=== PATIENT | female | born 1965 | race American Indian/Alaskan Native ===

== ENCOUNTER 2021-01-01 22:59 | Inpatient (IN) | payer MEDICARE ==
--- NOTE | 2021-01-01 23:08 | Emergency Department Report ---
ED General Adult HPI - General Stated complaint: AMS Time Seen by Provider: 01/01/21 23:03 - History of Present Illness Initial comments: Patient presents by ambulance secondary to altered mental status. History is obtained from them. Patient is confused and cannot provide any cogent history. According to EMS, the patient has been confused for 4 days. Her family was concerned tonight and called EMS. They state that she just was not making a lot of sense. According to family and EMS, the patient had not been sick otherwise. EMS notes that the patient was tachycardic during transport. She had a low- grade fever. She smelled of urine. She was confused. They were unaware of any potential Covid exposure. - Related Data Home Medications Medication Instructions Recorded Confirmed Last Taken Aspirin [Aspirin BABY CHEW TAB] 81 mg PO QDAY 01/02/21 01/02/21 Unknown carvediloL [Coreg] 12.5 mg PO BID 01/02/21 01/02/21 Unknown donepeziL [Aricept] 10 mg PO QHS 01/02/21 01/02/21 Unknown hydrALAZINE [Apresoline TAB] 100 mg PO Q8HR 01/02/21 01/02/21 Unknown Allergies Allergy/AdvReac Type Severity Reaction Status Date / Time Sulfa (Sulfonamide Allergy Unknown Verified 01/02/21 00:42 Antibiotics) ED Review of Systems ROS: Stated complaint: AMS Other details as noted in HPI Comment: Unobtainable due to pts medical conditions (Confusion) ED Past Medical Hx - Past Medical History Hx CVA: Yes (Per EMS with no residual deficit) Additional medical history: Cannot be obtained secondary to confusion - Surgical History Additional Surgical History: Cannot be obtained secondary to confusion - Family History Family history: other (Cannot be obtained secondary to confusion) - Medications Home Medications: Home Medications Medication Instructions Recorded Confirmed Last Taken Type Aspirin [Aspirin BABY CHEW TAB] 81 mg PO QDAY 01/02/21 01/02/21 Unknown History carvediloL [Coreg] 12.5 mg PO BID 01/02/21 01/02/21 Unknown History donepeziL [Aricept] 10 mg PO QHS 01/02/21 01/02/21 Unknown History hydrALAZINE [Apresoline TAB] 100 mg PO Q8HR 01/02/21 01/02/21 Unknown History ED Physical Exam - General Limitations: Altered Mental Status, Other (Pulse ox was noted. Patient is hypoxic.) General appearance: alert, in distress (Mild) - Head Head exam: Present: atraumatic, other (There is flattening of the right nasolabial fold. Patient has some right-sided periorbital edema) - Eye Eye exam: Present: PERRL, EOMI, periorbital swelling (Right). Absent: scleral icterus - ENT ENT exam: Present: mucous membranes dry, normal external ear exam - Neck Neck exam: Present: normal inspection. Absent: meningismus - Respiratory Respiratory exam: Present: respiratory distress (Mild), rales (Bilateral) - Cardiovascular Cardiovascular Exam: Present: tachycardia, normal heart sounds - GI/Abdominal GI/Abdominal exam: Present: soft. Absent: distended, tenderness - Extremities Exam Extremities exam: Present: normal capillary refill, pedal edema (Right greater than left), other (There is bruising to the lateral aspect of the right hip) - Back Exam Back exam: Present: normal inspection - Neurological Exam Neurological exam: Present: alert, altered, other (Patient seems to have some flattening of the right nasolabial fold. There seems to be weakness involving the right arm. Patient will not cooperate with exam.) - Psychiatric Psychiatric exam: Present: flat affect - Skin Skin exam: Present: warm, dry ED Course Vital Signs 01/01/21 01/02/21 01/02/21 23:15 00:15 00:30 Temperature 98.6 F Pulse Rate 120 H 110 H 107 H Respiratory 20 25 H 20 Rate Blood Pressure 176/124 198/117 178/121 O2 Sat by Pulse 93 95 95 Oximetry 01/02/21 01/02/21 01/02/21 00:46 01:08 01:16 Temperature Pulse Rate 105 H 105 H 102 H Respiratory 15 24 19 Rate Blood Pressure 178/121 192/111 192/111 O2 Sat by Pulse 94 93 96 Oximetry - Reevaluation(s) Reevaluation #1: 01/01/21 23:07 EMS was met. IV and labs were ordered. Reevaluation #2: 01/02/21 00:32 CBC was noted. Other labs are still pending. Reevaluation #3: 01/02/21 00:48 UA was noted. Rocephin was ordered. Reevaluation #4: 01/02/21 01:26 CT was discussed with the radiologist. ED Medical Decision Making - Lab Data Result diagrams: 01/01/21 23:33 01/01/21 23:33 - EKG Data EKG shows normal: sinus rhythm, intervals, QRS complexes Rate: tachycardia - EKG Data Interpretation: LVH 01/02/21 00:32 EKG shows a sinus tachycardia 116. There is LVH noted. QRS is normal at 94. QT corrected is normal at 441. Patient has no ST elevation to suggest STEMI. There is no ST depression suggestive of ischemia. - Medical Decision Making Patient presents with altered mental status as well as tachycardia and low-grade fevers. She clinically is dehydrated. She will be admitted for ongoing hydration and treatment. Etiology for the confusion does not appear to be related to any acute stroke or bleed. There is no visible sign of head trauma. I do not have concern for subdural or epidural hematomas given her current presentation. I suspect the acute kidney injury is new along with the urinary tract infection. I believe that she is encephalopathic from that. She does not have lactic acidosis. Patient does not have hypotension. There is no evidence of septic shock. Verbal report for CT was for a subacute stroke. Rectal aspirin has been given. As her symptoms began 4 days ago, she would be outside of any kind of window for intervention. Critical Care Time: No Critical care attestation.: If time is entered above; I have spent that time in minutes in the direct care of this critically ill patient, excluding procedure time. ED Disposition Clinical Impression: Tachycardia, Hypoxia, Encephalopathy, FAVIOLA (acute kidney injury) UTI (urinary tract infection) Qualifiers: Urinary tract infection type: site unspecified Hematuria presence: without hematuria Qualified Code(s): N39.0 - Urinary tract infection, site not specified CVA (cerebral vascular accident) Qualifiers: CVA mechanism: unspecified Qualified Code(s): I63.9 - Cerebral infarction, unspecified Disposition: 09 ADMITTED INPATIENT Is pt being admited?: Yes Condition: Stable Referrals: PRIMARY CARE, [Primary Care Provider] - 3-5 Days
[2021-01-01 23:53] LABS: Basophils % (Auto) 0.2 % (0.0-1.8); Hematocrit 41.8 % (30.3-42.9); Hemoglobin 13.9 gm/dl (10.1-14.3); Lymphocytes # (Auto) 0.7 K/mm3 (1.2-5.4); Mean Corpuscular HGB Conc 33 % (30-34); Mean Corpuscular Volume 86 fl (79-97); Monocytes # (Auto) 0.5 K/mm3 (0.0-0.8); Monocytes % (Auto) 8.7 % (0.0-7.3); Platelet Count 201 K/mm3 (140-440); Red Blood Count 4.86 M/mm3 (3.65-5.03); Red Cell Distribution Width 18.6 % (13.2-15.2)
[2021-01-02 00:18] LABS: Albumin 3.4 g/dL (3.9-5); Calcium 8.8 mg/dL (8.4-10.2)
[2021-01-02 00:35] LABS: Bilirubin,Urine NEG (Negative); Blood,Urine LG (Negative); Color,Urine Amber (Yellow); Mucus,Urine FEW /HPF
[2021-01-02] MEDS ORDERED: ASPIRIN 300 MG RECT SUPP PR ONE (01:19)
[2021-01-02] MEDS: cefTRIAXone/NS 1 GM/50 ML 1 GM/50 ML BAG IV SCH ×2 (01:27→12:50)
--- NOTE | 2021-01-02 01:31 | Cat Scan Report ---
CT head/brain wo con INDICATION / CLINICAL INFORMATION: confusion, right-sided facial droop. TECHNIQUE: Routine CT head without contrast All CT scans at this location are performed using CT dose reduction for ALARA by means of automated exposure control. COMPARISON: None available. FINDINGS: Mild diffuse cerebral atrophy with extensive periventricular white matter hypodensity. Several lacuna r infarcts are identified within both basal ganglia. There is asymmetric increased hypodensity involv ing the left basal ganglia with respect to the right. No acute intracranial hemorrhage is identified. There is no acute extra-axial collection. The orbits are unremarkable. The paranasal sinuses are clear. IMPRESSION: 1. No acute intracranial hemorrhage. Suspicious hypodensity within the left basal ganglia could be se condary to acute infarct. MRI of the brain is suggested for further evaluation if there strong clinic al concern for acute left MCA infarct. 2. Mild diffuse cerebral atrophy. Extensive periventricular white matter changes are nonspecific but could be seen with chronic microangiopathic disease. 3. Several small lacunar infarcts identified within the right basal ganglia. CRITICAL RESULT: Acute CVA Time of Discovery: 12:15 AM Central time Time of Communication: 12:20 AM Central time Licensed Practitioner Receiving Report: Dr. Kong Read Back Performed: Yes. Signer Name: Aldo Medina MD Signed: 01/02/2021 1:27 AM Workstation Name: [id number]
[2021-01-02] MEDS ORDERED: MAGNESIUM HYDROXIDE (MOM) ORAL LIQD UDC PO PRN ×2 (01:40)
[2021-01-02] MEDS ORDERED: ACETAMINOPHEN 325 MG TAB PO PRN ×2 (01:40)
[2021-01-02] MEDS ORDERED: ONDANSETRON 4 MG/2 ML INJ IV PRN ×2 (01:40)
[2021-01-02] MEDS ORDERED: MORPHINE 2 MG/1 ML INJ IV PRN (01:40)
[2021-01-02] MEDS ORDERED: PROMETHAZINE 25 MG RECT SUPP PR PRN (01:40)
[2021-01-02] MEDS ORDERED: MORPHINE 4 MG/1 ML INJ IV PRN (01:40)
[2021-01-02] MEDS ORDERED: METOCLOPRAMIDE 10 MG TAB PO PRN (01:40)
[2021-01-02] MEDS ORDERED: SODIUM CHLORIDE 0.9% 1000 ML 1,000 ML IV SCH (01:45)
--- NOTE | 2021-01-02 01:53 | XRay Report ---
CHEST 1 VIEW INDICATION / CLINICAL INFORMATION: cough. FINDINGS: SUPPORT DEVICES: None. HEART / MEDIASTINUM: No significant abnormality. LUNGS / PLEURA: Ill-defined airspace disease within the left midlung. This could be field sales representative of pneumonia. The right lung is grossly clear. Signer Name: Aldo Medina MD Signed: 01/02/2021 1:48 AM Workstation Name: [id number]
--- NOTE | 2021-01-02 01:54 | XRay Report ---
Right hip 2 views INDICATION: Right hip pain following injury IMPRESSION: No fracture or subluxation of the right hip is identified. Signer Name: Aldo Medina MD Signed: 01/02/2021 1:49 AM Workstation Name: [id number]
[2021-01-02] MEDS ORDERED: cefTRIAXone/NS 1 GM/50 ML 1 GM/50 ML BAG IV SCH (02:00)
--- NOTE | 2021-01-02 02:04 | History and Physical Report ---
History of Present Illness Date of examination: 01/02/21 Date of admission: 01/02/2021 Chief complaint: Altered mental status History of present illness: 55-year-old -[place] female with known history of hypertension and history of stroke in the past was brought into the emergency room today by EMS for altered mental status. Per EMS patient has been altered for almost 4 days and family decided to send patient to the emergency room for further evaluation. Most of the history was gotten from the ER staff as family is not available and patient unable to give any any good history. According to records patient was tachycardic during transportation to the hospital she was also said to have had a low-grade fever. Upon arrival in the ER she was said to be confused, tachycardic and slightly hypoxic. It is unclear whether patient has been vaccinated against COVID-19. Work-up in the emergency room today significant findings were that of a D-dimer of 1378, elevated troponin of 0.43, BUN and creatinine were 37 and 2.3 respectively. Urinalysis was significant for UTI. Chest x-ray reveals ill-defined airspace disease within the left midlung this could be marketing representative of pneumonia. CT scan of the head reveals several findings including: Suspicious hypodensity within the left basal ganglia which could be secondary to acute infarct. MRI recommended for further evaluation. There are several small lacunar infarcts identified within the right basal ganglia. Patient admitted with multiple medical problems including encephalopathy, possible CVA, UTI, pneumonia and elevated D-dimer. Past History Past Medical History: hypertension, stroke Past Surgical History: Other (Not obtainable) Social history: other (Not obtainable) Family history: other (Not obtainable) Medications and Allergies Allergies Allergy/AdvReac Type Severity Reaction Status Date / Time Sulfa (Sulfonamide Allergy Unknown Verified 01/02/21 00:42 Antibiotics) Home Medications Medication Instructions Recorded Confirmed Last Taken Type Aspirin [Aspirin BABY CHEW TAB] 81 mg PO QDAY 01/02/21 01/02/21 Unknown History carvediloL [Coreg] 12.5 mg PO BID 01/02/21 01/02/21 Unknown History donepeziL [Aricept] 10 mg PO QHS 01/02/21 01/02/21 Unknown History hydrALAZINE [Apresoline TAB] 100 mg PO Q8HR 10/02/21 10/02/21 Unknown History Active Meds: Active Medications Acetaminophen (Acetaminophen 325 Mg Tab) 650 mg PO Q4H PRN PRN Reason: Pain MILD(1-3)/Fever >100.5/TREVINO Acetaminophen (Acetaminophen 325 Mg Tab) 650 mg PO Q4H PRN PRN Reason: Pain, Mild (1-3) Aspirin (Aspirin 300 Mg Rect Supp) 300 mg DC QDAY [facility]TRAN Atorvastatin Calcium (Atorvastatin 40 Mg Tab) 40 mg PO QHS [facility]TRAN Bisacodyl (Bisacodyl 10 Mg Rect Supp) 10 mg DC QDAY PRN PRN Reason: Constipation Heparin Sodium (Porcine) (Heparin 5,000 Unit/1 Ml Vial) 5,000 unit SUB-Q Q8HR [facility]TRAN Hydralazine HCl (Hydralazine 20 Mg/1 Ml Inj) 10 mg IV ONCE ONE Stop: 01/02/21 01:41 Ceftriaxone Sodium (Rocephin/Ns 1 Gm/50 Ml) 1 gm in 50 mls @ 100 mls/hr IV Q24HR [facility]TRAN; Protocol Last Admin: 01/02/21 01:27 Dose: 100 mls/hr Documented by: Sodium Chloride (Nacl 0.9% 1000 Ml) 1,000 mls @ 125 mls/hr IV DIRECT [facility]TRAN Ceftriaxone Sodium (Rocephin/Ns 1 Gm/50 Ml) 1 gm in 50 mls @ 100 mls/hr IV Q24H BELTRAN; Protocol Magnesium Hydroxide (Magnesium Hydroxide (Mom) Oral Liqd Udc) 30 ml PO Q4H PRN PRN Reason: Constipation Magnesium Hydroxide (Magnesium Hydroxide (Mom) Oral Liqd Udc) 30 ml PO Q4H PRN PRN Reason: Constipation Metoclopramide HCl (Metoclopramide 10 Mg Tab) 10 mg PO Q6H PRN PRN Reason: Nausea And Vomiting Morphine Sulfate (Morphine 2 Mg/1 Ml Inj) 2 mg IV Q4H PRN PRN Reason: Pain, Moderate (4-6) Morphine Sulfate (Morphine 4 Mg/1 Ml Inj) 4 mg IV Q4H PRN PRN Reason: Pain , Severe (7-10) Ondansetron HCl (Ondansetron 4 Mg/2 Ml Inj) 4 mg IV Q8H PRN PRN Reason: Nausea And Vomiting Ondansetron HCl (Ondansetron 4 Mg/2 Ml Inj) 4 mg IV Q8H PRN PRN Reason: Nausea And Vomiting Promethazine HCl (Promethazine 25 Mg Rect Supp) 25 mg DC Q6H PRN PRN Reason: Nausea And Vomiting Sodium Chloride (Sodium Chloride 0.9% 10 Ml Flush Syringe) 10 ml IV BID BELTRAN Sodium Chloride (Sodium Chloride 0.9% 10 Ml Flush Syringe) 10 ml IV PRN PRN PRN Reason: LINE FLUSH Sodium Chloride (Sodium Chloride 0.9% 10 Ml Flush Syringe) 10 ml INJ PRN PRN PRN Reason: LINE FLUSH Review of Systems ROS unobtainable: due to mental status Exam - Constitutional Vitals: Temp Pulse Resp BP Pulse Ox 98.6 F 104 H 19 187/118 96 01/01/21 23:15 01/02/21 01:26 01/02/21 01:16 01/02/21 01:26 01/02/21 01:16 General appearance: Present: no acute distress, well-nourished, other (Dry oral mucosa) - EENT Eyes: Present: PERRL, EOM intact. Absent: scleral icterus ENT: hearing intact, clear oral mucosa, dentition normal - Neck Neck: Present: supple, normal ROM - Respiratory Respiratory effort: normal Respiratory: left: diminished - Cardiovascular Rhythm: regular Heart Sounds: Present: S1 & S2. Absent: gallop, systolic murmur, diastolic murmur, rub, click - Extremities Extremities: no ischemia, pulses intact, pulses symmetrical, No edema, normal temperature, normal color, Full ROM, abnormal (Moderate tenderness in the right calf.) Peripheral Pulses: within normal limits - Abdominal General gastrointestinal: Present: soft, non-tender, non-distended, normal bowel sounds. Absent: mass - Integumentary Integumentary: Present: clear, warm, dry, rash - Musculoskeletal Musculoskeletal: strength equal bilaterally - Psychiatric Psychiatric: appropriate mood/affect, cooperative - Neurologic Neurologic: CNII-XII intact, no focal deficits, other (Right upper extremity weakness) HEART Score - HEART Score Troponin: Troponin T 0.043 ng/mL (0.00-0.029) H 01/01/21 23:33 Results - Labs CBC & Chem 7: 01/02/21 05:37 01/02/21 05:37 Labs: Abnormal lab results 01/01/21 01/01/21 01/01/21 Range/Units 23:33 23:33 23:33 RDW 18.6 H (13.2-15.2) % Lymph % (Auto) 12.0 L (13.4-35.0) % Pender % (Auto) 8.7 H (0.0-7.3) % Lymph # (Auto) 0.7 L (1.2-5.4) K/mm3 Seg Neutrophils % 79.1 H (40.0-70.0) % D-Dimer 1378.45 H (0-234) ng/mlDDU Sodium 147 H (137-145) mmol/L Chloride 111.1 H (98-107) mmol/L Carbon Dioxide 14 L (22-30) mmol/L BUN 37 H (7-17) mg/dL Creatinine 2.3 H (0.6-1.2) mg/dL Glucose 184 H (65-100) mg/dL Troponin T 0.043 H (0.00-0.029) ng/mL Albumin 3.4 L (3.9-5) g/dL Urine WBC (Auto) (0.0-6.0) /HPF 01/01/21 01/02/21 Range/Units 23:33 00:15 RDW (13.2-15.2) % Lymph % (Auto) (13.4-35.0) % Pender % (Auto) (0.0-7.3) % Lymph # (Auto) (1.2-5.4) K/mm3 Seg Neutrophils % (40.0-70.0) % D-Dimer (0-234) ng/mlDDU Sodium (137-145) mmol/L Chloride (98-107) mmol/L Carbon Dioxide (22-30) mmol/L BUN (7-17) mg/dL Creatinine (0.6-1.2) mg/dL Glucose 186 H (65-100) mg/dL Troponin T (0.00-0.029) ng/mL Albumin (3.9-5) g/dL Urine WBC (Auto) 88.0 H (0.0-6.0) /HPF Assessment and Plan - Patient Problems (1) CVA (cerebral vascular accident) Current Visit: Yes Status: Acute Qualifiers: CVA mechanism: unspecified Qualified Code(s): I63.9 - Cerebral infarction, unspecified Plan to address problem: Patient admitted and placed on telemetry. Frequent neurochecks We will place consult to neurology for evaluation. Patient will be scheduled for MRI of the brain and echocardiogram. We will request physical therapy evaluation. Meanwhile patient commenced on daily aspirin and statin. (2) Encephalopathy Current Visit: Yes Status: Acute Plan to address problem: Possibly secondary to CVA versus underlying infections including pneumonia and UTI. (3) FAVIOLA (acute kidney injury) Current Visit: Yes Status: Acute Plan to address problem: Patient placed on IV fluid normal saline. We will monitor BUN and creatinine. Baseline creatinine unknown. Consult placed to nephrology for evaluation. (4) Hypoxia Current Visit: Yes Status: Acute Plan to address problem: Patient was mildly hypoxic upon arrival in the emergency room. Placed on oxygen by nasal cannula. We will keep O2 saturation greater or equal to 92%. In view of the elevated D-dimer, we will schedule for VQ scan and venous Doppler of the lower extremities. (5) Tachycardia Current Visit: Yes Status: Acute Plan to address problem: We will monitor vital signs closely. We will schedule patient for VQ scan to rule out pulmonary embolism. Meanwhile patient placed on heparin drip. (6) UTI (urinary tract infection) Current Visit: Yes Status: Acute Qualifiers: Urinary tract infection type: site unspecified Hematuria presence: without hematuria Qualified Code(s): N39.0 - Urinary tract infection, site not specified Plan to address problem: Patient placed on empiric IV antibiotics. Will await urine culture results. (7) Pneumonia Current Visit: Yes Status: Acute Plan to address problem: Patient placed on empiric IV antibiotics. We will also rule out patient for COV [id number]. (8) Elevated troponin Current Visit: Yes Status: Acute Plan to address problem: There has been no ischemic EKG changes. Patient denies chest pain We will trend cardiac enzymes. We will consult cardiology as needed. (9) DVT prophylaxis Current Visit: Yes Status: Acute Plan to address problem: Patient on anticoagulation with heparin. (10) Full code status Current Visit: Yes Status: Acute Plan to address problem: Patient is a full code.
[2021-01-02 02:24] LABS: C-Reactive Protein 2.5 mg/dL (0.00-1.30)
[2021-01-02 02:25] LABS: Chol/HDL Ratio 7.55 %
[2021-01-02] MEDS ORDERED: hydrALAZINE 20 MG/1 ML INJ IV ONE (02:40)
[2021-01-02] MEDS ORDERED: HEPARIN 10,000 UNITS/10 ML VIAL IV ONE (03:59)
[2021-01-02] MEDS ORDERED: HEPARIN/ 0.45% NACL DRIP 25,000 UNIT/500 ML BAG IV SCH (04:00)
[2021-01-02] MEDS ORDERED: HEPARIN 5,000 UNIT/1 ML VIAL SUB-Q SCH (06:00)
[2021-01-02] MEDS ORDERED: HEPARIN 10,000 UNITS/10 ML VIAL ONE (06:00)
[2021-01-02 06:10] LABS: Hematocrit 41.3 % (30.3-42.9); Hemoglobin 13.6 gm/dl (10.1-14.3)
[2021-01-02 06:17] LABS: INR 1.05 (0.87-1.13)
[2021-01-02 06:18] LABS: Partial Thromboplastin Time 33.1 Sec. (24.2-36.6)
[2021-01-02 06:28] LABS: C-Reactive Protein 2.6 mg/dL (0.00-1.30)
[2021-01-02] MEDS: AZITHROMYCIN/NS 500 MG/250 ML 500 MG/250 ML BAG IV SCH (06:52)
--- NOTE | 2021-01-02 09:47 | Progress Note ---
Assessment and Plan Assessment and plan: CVA. Sepsis. Present on admission. Patient meets criteria given the tachycardia, tachypnea and diagnosis of UTI/pneumonia. Bilateral pneumonia. Suspected COVID-19 pneumonia. UTI. Toxic metabolic encephalopathy. 01/02/2021. Altered mentation is secondary to toxic metabolic encephalopathy from sepsis/pneumonia/UTI +/-CVA. CT scan of the head reveals several findings including: Suspicious hypodensity within the left basal ganglia which could be secondary to acute infarct. MRI recommended for further evaluation. There are several small lacunar infarcts identified within the right basal ganglia. Neurology consultation when available. Patient will be continued on IV antibiotics. Patient currently undergoing VQ scan for elevated D-dimer to rule out PE. Follow-up Covid PCR. Total visit time equals 35 minutes with greater than 50% spent on coordination of care and counseling. History Interval history: Patient seen in nuclear medicine lab. No new issues since admission Hospitalist Physical - Constitutional Vitals: Temp Pulse Resp BP Pulse Ox 98.6 F 91 H 18 185/102 100 01/01/21 23:15 01/02/21 09:01 01/02/21 09:01 01/02/21 09:01 01/02/21 09:01 General appearance: Present: no acute distress, well-nourished, other (Dry oral mucosa) - EENT Eyes: Present: PERRL, EOM intact ENT: hearing intact, clear oral mucosa, dentition normal - Neck Neck: Present: supple, normal ROM - Respiratory Respiratory effort: normal Respiratory: bilateral: CTA - Cardiovascular Rhythm: regular Heart Sounds: Present: S1 & S2. Absent: gallop, rub - Extremities Extremities: no ischemia, No edema, Full ROM - Abdominal General gastrointestinal: soft, non-tender, non-distended, normal bowel sounds - Integumentary Integumentary: Present: clear, warm, dry - Neurologic Neurologic: CNII-XII intact, moves all extremities HEART Score - HEART Score Troponin: Troponin T 0.038 ng/mL (0.00-0.029) H 01/02/21 02:01 Results - Labs CBC & Chem 7: 01/02/21 05:37 01/02/21 05:37 Labs: Laboratory Last Values WBC 6.2 K/mm3 (4.5-11.0) 01/01/21 23:33 RBC 4.86 M/mm3 (3.65-5.03) 01/01/21 23:33 Hgb 13.6 gm/dl (10.1-14.3) 01/02/21 05:37 Hct 41.3 % (30.3-42.9) 01/02/21 05:37 MCV 86 fl (79-97) 01/01/21 23:33 MCH 29 pg (28-32) 01/01/21 23:33 MCHC 33 % (30-34) 01/01/21 23:33 RDW 18.6 % (13.2-15.2) H 01/01/21 23:33 Plt Count 185 K/mm3 (140-440) 01/02/21 05:37 Lymph % (Auto) 12.0 % (13.4-35.0) L 01/01/21 23:33 [place] % (Auto) 8.7 % (0.0-7.3) H 01/01/21 23:33 Eos % (Auto) 0.0 % (0.0-4.3) 01/01/21 23:33 Baso % (Auto) 0.2 % (0.0-1.8) 01/01/21 23:33 Lymph # (Auto) 0.7 K/mm3 (1.2-5.4) L 01/01/21 23:33 [place] # (Auto) 0.5 K/mm3 (0.0-0.8) 01/01/21 23:33 Eos # (Auto) 0.0 K/mm3 (0.0-0.4) 01/01/21 23:33 Baso # (Auto) 0.0 K/mm3 (0.0-0.1) 01/01/21 23:33 Seg Neutrophils % 79.1 % (40.0-70.0) H 01/01/21 23:33 Seg Neutrophils # 4.9 K/mm3 (1.8-7.7) 01/01/21 23:33 PT 14.2 Sec. (12.2-14.9) 01/02/21 05:37 INR 1.05 (0.87-1.13) 01/02/21 05:37 APTT 33.1 Sec. (24.2-36.6) 01/02/21 05:37 D-Dimer 1234.80 ng/mlDDU (0-234) H 01/02/21 05:37 Sodium 147 mmol/L (137-145) H 01/01/21 23:33 Potassium 4.1 mmol/L (3.6-5.0) 01/01/21 23:33 Chloride 111.1 mmol/L (98-107) H 01/01/21 23:33 Carbon Dioxide 14 mmol/L (22-30) L 01/01/21 23:33 Anion Gap 26 mmol/L 01/01/21 23:33 BUN 37 mg/dL (7-17) H 01/01/21 23:33 Creatinine 2.3 mg/dL (0.6-1.2) H 01/01/21 23:33 Estimated GFR 22 ml/min 01/01/21 23:33 BUN/Creatinine Ratio 16 % 01/01/21 23:33 Glucose 99 mg/dL (65-100) 01/02/21 05:37 Lactic Acid 1.80 mmol/L (0.7-2.0) 01/01/21 23:33 Calcium 8.8 mg/dL (8.4-10.2) 01/01/21 23:33 Ferritin 317.0 ng/mL (10.0-200.0) H 01/02/21 05:37 Total Bilirubin 0.60 mg/dL (0.1-1.2) 01/01/21 23:33 AST 32 units/L (5-40) 01/01/21 23:33 ALT 17 units/L (7-56) 01/01/21 23:33 Alkaline Phosphatase 82 units/L (35-129) 01/01/21 23:33 Lactate Dehydrogenase 282 units/L (91-180) H 01/02/21 05:37 Troponin T 0.038 ng/mL (0.00-0.029) H 01/02/21 02:01 C-Reactive Protein 2.60 mg/dL (0.00-1.30) H 01/02/21 05:37 NT-Pro-B Natriuret Pep 398.4 pg/mL (0-900) 01/01/21 23:33 Total Protein 8.2 g/dL (6.3-8.2) 01/01/21 23:33 Albumin 3.4 g/dL (3.9-5) L 01/01/21 23:33 Albumin/Globulin Ratio 0.7 % 01/01/21 23:33 Triglycerides 284 mg/dL (2-149) H 01/01/21 23:33 Cholesterol 151 mg/dL (50-199) 01/01/21 23:33 LDL Cholesterol Direct 65 mg/dL (50-130) 01/01/21 23:33 HDL Cholesterol 20 mg/dL (40-59) L 01/01/21 23:33 Cholesterol/HDL Ratio 7.55 % 01/01/21 23:33 Urine Color Izzy (Yellow) 01/02/21 00:15 Urine Turbidity Cloudy (Clear) 01/02/21 00:15 Urine pH 6.0 (5.0-7.0) 01/02/21 00:15 Ur Specific [place] 1.016 (1.003-1.030) 01/02/21 00:15 Urine Protein 100 mg/dl mg/dL (Negative) 01/02/21 00:15 Urine Glucose (UA) Neg mg/dL (Negative) 01/02/21 00:15 Urine Ketones Neg mg/dL (Negative) 01/02/21 00:15 Urine Blood Lg (Negative) 01/02/21 00:15 Urine Nitrite Neg (Negative) 01/02/21 00:15 Urine Bilirubin Neg (Negative) 01/02/21 00:15 Urine Urobilinogen 4.0 mg/dL (<2.0) 01/02/21 00:15 Ur Leukocyte Esterase Mod (Negative) 01/02/21 00:15 Urine WBC (Auto) 88.0 /HPF (0.0-6.0) H 01/02/21 00:15 Urine RBC (Auto) 56.0 /HPF (0.0-6.0) 01/02/21 00:15 U Epithel Cells (Auto) 2.0 /HPF (0-13.0) 01/02/21 00:15 Urine WBC Clumps 1+ /HPF 01/02/21 00:15 Urine Mucus Few /HPF 01/02/21 00:15 Urine Yeast (Budding) Few /HPF 01/02/21 00:15 Active Medications - Current Medications Current Medications: Generic Name Dose Route Start Last Admin Trade Name Freq PRN Reason Stop Dose Admin Acetaminophen 650 mg 01/02/21 01:40 Acetaminophen 325 Mg Tab PO Q4H PRN Pain, Mild (1-3) Aspirin 300 mg 01/02/21 10:00 Aspirin 300 Mg Rect Supp ND QDAY [facility] Atorvastatin Calcium 40 mg 01/02/21 22:00 Atorvastatin 40 Mg Tab PO QHS [facility] Bisacodyl 10 mg 01/02/21 01:40 Bisacodyl 10 Mg Rect Supp ND QDAY PRN Constipation Ceftriaxone Sodium 1 gm in 50 mls @ 100 mls/hr 01/02/21 01:00 01/02/21 01:27 Rocephin/Ns 1 Gm/50 Ml IV 100 mls/hr Q24HR [facility] Administration Protocol Sodium Chloride 1,000 mls @ 125 mls/hr 01/02/21 01:45 01/02/21 06:06 Nacl 0.9% 1000 Ml IV 125 mls/hr DIRECT [facility] Administration Heparin Sodium/Sodium Chloride 25,000 unit in 500 mls @ 18 mls/hr 01/02/21 04:00 01/02/21 06:02 Heparin/ 0.45% Nacl-25,000 Unit/500 Ml IV 900 units/hr TITR [facility] 18 mls/hr Administration Protocol 900 UNITS/HR Azithromycin 500 mg in 250 mls @ 250 mls/hr 01/02/21 06:00 01/02/21 06:52 Zithromax/Ns IV 250 mls/hr Q24H [facility] Administration Magnesium Hydroxide 30 ml 01/02/21 01:40 Magnesium Hydroxide (Mom) Oral Liqd Udc PO Q4H PRN Constipation Metoclopramide HCl 5 mg 01/02/21 01:40 Metoclopramide 10 Mg Tab PO Q6H PRN Nausea And Vomiting Morphine Sulfate 2 mg 01/02/21 01:40 Morphine 2 Mg/1 Ml Inj IV Q4H PRN Pain, Moderate (4-6) Morphine Sulfate 4 mg 01/02/21 01:40 Morphine 4 Mg/1 Ml Inj IV Q4H PRN Pain , Severe (7-10) Ondansetron HCl 4 mg 01/02/21 01:40 Ondansetron 4 Mg/2 Ml Inj IV Q8H PRN Nausea And Vomiting Promethazine HCl 25 mg 01/02/21 01:40 Promethazine 25 Mg Rect Supp ND Q6H PRN Nausea And Vomiting Sodium Chloride 10 ml 01/02/21 10:00 Sodium Chloride 0.9% 10 Ml Flush Syringe IV BID [facility] Sodium Chloride 10 ml 01/02/21 01:40 Sodium Chloride 0.9% 10 Ml Flush Syringe IV PRN PRN LINE FLUSH
--- NOTE | 2021-01-02 09:56 | Nuclear Medicine Report ---
NUCLEAR MEDICINE PERFUSION LUNG SCAN INDICATION / CLINICAL INFORMATION: ELEVATED D.DIMER,HYPOXIA,TACHYCARDIA. R/O PE. TECHNIQUE: 5.1 mCi of Tc-99m MAA were given by IV. COMPARISON: Chest radiograph dated 01/02/2021. FINDINGS: PERFUSION: No significant perfusion defects. ADDITIONAL FINDINGS: None. IMPRESSION: 1. Low probability for pulmonary embolism. Signer Name: Hoang Allen MD Signed: 01/02/2021 9:51 AM Workstation Name: [id number]
[2021-01-02] MEDS: ASPIRIN 300 MG RECT SUPP PR SCH (13:50)
[2021-01-02] MEDS: NIFEdipine XL 60 MG TAB PO SCH (13:51)
--- NOTE | 2021-01-02 14:57 | Consultation ---
History of Present Illness - Reason for Consult Consult date: 01/02/21 acute renal failure, metabolic acidosis Requesting physician: CHONG PÉREZ - History of Present Illness 55-year-old -[place] female with known history of hypertension and history of stroke in the past was brought into the emergency room today by EMS for altered mental status. Per EMS patient has been altered for almost 4 days and family decided to send patient to the emergency room for further evaluation. Most of the history was gotten from the ER staff as family is not available and patient unable to give any any good history. According to records patient was tachycardic during transportation to the hospital she was also said to have had a low-grade fever. Upon arrival in the ER she was said to be confused, tachycardic and slightly hypoxic. It is unclear whether patient has been vaccinated against COVID-19. Work-up in the emergency room today significant findings were that of a D-dimer of 1378, elevated troponin of 0.43, BUN and creatinine were 37 and 2.3 respectiv francesca. Urinalysis was significant for UTI. Chest x-ray reveals ill-defined airspace disease within the left midlung this could be manufacturers service representative of pneumonia. CT scan of the head reveals several findings including: Suspicious hypodensity within the left basal ganglia which could be secondary to acute infarct. MRI recommended for further evaluation. There are several small lacunar infarcts identified within the right basal ganglia. Patient admitted with multiple medical problems including encephalopathy, possible CVA, UTI, pneumonia and elevated D-dimer. Past History Past Medical History: hypertension, stroke Past Surgical History: Other (Not obtainable) Social history: other (Not obtainable) Family history: other (Not obtainable) Review of Systems ROS unobtainable: due to mental status Past History Past Medical History: hypertension, stroke Past Surgical History: Other (Not obtainable) Social history: other (Not obtainable) Family history: other (Not obtainable) Medications and Allergies Allergies Allergy/AdvReac Type Severity Reaction Status Date / Time Sulfa (Sulfonamide Allergy Unknown Verified 01/02/21 00:42 Antibiotics) Home Medications Medication Instructions Recorded Confirmed Last Taken Type Aspirin [Aspirin BABY CHEW TAB] 81 mg PO QDAY 01/02/21 01/02/21 Unknown History carvediloL [Coreg] 12.5 mg PO BID 01/02/21 01/02/21 Unknown History donepeziL [Aricept] 10 mg PO QHS 01/02/21 01/02/21 Unknown History hydrALAZINE [Apresoline TAB] 100 mg PO Q8HR 01/02/21 01/02/21 Unknown History Active Meds: Active Medications Acetaminophen (Acetaminophen 325 Mg Tab) 650 mg PO Q4H PRN PRN Reason: Pain, Mild (1-3) Aspirin (Aspirin 300 Mg Rect Supp) 300 mg [place] QDAY [facility] Last Admin: 01/02/21 13:50 Dose: 300 mg Documented by: Atorvastatin Calcium (Atorvastatin 40 Mg Tab) 40 mg PO QHS [facility] Bisacodyl (Bisacodyl 10 Mg Rect Supp) 10 mg [place] QDAY PRN PRN Reason: Constipation Ceftriaxone Sodium (Rocephin/Ns 1 Gm/50 Ml) 1 gm in 50 mls @ 100 mls/hr IV Q24HR [facility]; Protocol Last Admin: 01/02/21 12:50 Dose: 100 mls/hr Documented by: Heparin Sodium/Sodium Chloride (Heparin/ 0.45% Nacl-25,000 Unit/500 Ml) 25,000 unit in 500 mls @ 18 mls/hr IV TITR [facility]; Protocol Last Admin: 01/02/21 06:02 Dose: 900 units/hr, 18 mls/hr Documented by: Azithromycin (Zithromax/Ns) 500 mg in 250 mls @ 250 mls/hr IV Q24H [facility] Last Admin: 01/02/21 06:52 Dose: 250 mls/hr Documented by: Sodium Bicarbonate 150 meq/ (Dextrose) 1,150 mls @ 84 mls/hr IV DIRECT [facility] Metoclopramide HCl (Metoclopramide 10 Mg Tab) 5 mg PO Q6H PRN PRN Reason: Nausea And Vomiting Morphine Sulfate (Morphine 2 Mg/1 Ml Inj) 2 mg IV Q4H PRN PRN Reason: Pain, Moderate (4-6) Morphine Sulfate (Morphine 4 Mg/1 Ml Inj) 4 mg IV Q4H PRN PRN Reason: Pain , Severe (7-10) Nifedipine (Nifedipine Xl 60 Mg Tab) 60 mg PO BID [facility] Last Admin: 01/02/21 13:51 Dose: 60 mg Documented by: Ondansetron HCl (Ondansetron 4 Mg/2 Ml Inj) 4 mg IV Q8H PRN PRN Reason: Nausea And Vomiting Promethazine HCl (Promethazine 25 Mg Rect Supp) 25 mg [place] Q6H PRN PRN Reason: Nausea And Vomiting Sodium Chloride (Sodium Chloride 0.9% 10 Ml Flush Syringe) 10 ml IV BID [facility] Last Admin: 01/02/21 13:51 Dose: 10 ml Documented by: Sodium Chloride (Sodium Chloride 0.9% 10 Ml Flush Syringe) 10 ml IV PRN PRN PRN Reason: LINE FLUSH Exam - Vital Signs Vital signs: Vital Signs Temp Pulse Resp BP Pulse Ox 98.6 F 120 H 20 176/124 93 01/01/21 23:15 01/01/21 23:15 01/01/21 23:15 01/01/21 23:15 01/01/21 23:15 - Physical Exam Narrative exam: primary team exam noted, exam deferred for preservation of PPE Results - Lab Results 01/02/21 05:37 01/02/21 05:37 Most recent lab results Calcium 8.8 mg/dL (8.4-10.2) 01/01/21 23:33 Assessment and Plan Impression: * faviola * sepsis * ams * metabolic acidosis * Bilateral PNA * Covid PUI * UTI with sepsis Plan: * no emergent indication for VASCULAR SURGERY PHYSICIAN at this time * FAVIOLA likely multifactorial, hypoperfusion due to sepsis, ATN with COVID * keep MAP.65 * abx per primary team * add iv bicarb for acidosis and volume * strict i/os and daily lytes * avoid nephrotoxins
[2021-01-02] MEDS ORDERED: SODIUM BICARBONATE 150 MEQ in DEXTROSE 5% IN WATER 1,000 ML IV SCH (16:00)
[2021-01-03] MEDS: NIFEdipine XL 60 MG TAB PO SCH ×2 (00:30→13:52)
[2021-01-03 05:07] LABS: Calcium 7.1 mg/dL (8.4-10.2)
[2021-01-03] MEDS: AZITHROMYCIN/NS 500 MG/250 ML 500 MG/250 ML BAG IV SCH (07:00)
--- NOTE | 2021-01-03 10:16 | Progress Note ---
Assessment and Plan Assessment and plan: CVA. Sepsis. Present on admission. Patient meets criteria given the tachycardia, tachypnea and diagnosis of UTI/pneumonia. Bilateral pneumonia. COVID-19 pneumonia. Acute kidney injury. Etiology secondary to ATN/sepsis. UTI. Toxic metabolic encephalopathy. 01/02/2021. Altered mentation is secondary to toxic metabolic encephalopathy from sepsis/pneumonia/UTI +/-CVA. CT scan of the head reveals several findings including: Suspicious hypodensity within the left basal ganglia which could be secondary to acute infarct. MRI recommended for further evaluation. There are several small lacunar infarcts identified within the right basal ganglia. Neurology consultation when available. Patient will be continued on IV antibiotics. Patient currently undergoing VQ scan for elevated D-dimer to rule out PE. Follow-up Covid PCR. Total visit time equals 35 minutes with greater than 50% spent on coordination of care and counseling. 01/03/2021. Await MRI brain. Echocardiogram reveals left ventricular size normal with normal systolic function. EF 50 to 60%. Mild diastolic dysfunction. No PFO. Creatinine has improved to 1.5. Nephrology following. Covid PCR positive on 01/02. Continue IV antibiotics. Follow-up blood cultures. Check procalcitonin. Continue dexamethasone. VQ scan is negative for PE. Therefore, we will discontinue IV heparin drip. History Interval history: No new issues overnight. Hospitalist Physical - Constitutional Vitals: Temp Pulse Resp BP Pulse Ox 98.6 F 117 H 20 128/79 97 01/01/21 23:15 01/03/21 09:01 01/03/21 09:04 01/03/21 09:01 01/03/21 09:04 General appearance: Present: no acute distress, well-nourished, other (Dry oral mucosa) - EENT Eyes: Present: PERRL, EOM intact ENT: hearing intact, clear oral mucosa, dentition normal - Neck Neck: Present: supple, normal ROM - Respiratory Respiratory effort: normal Respiratory: bilateral: CTA - Cardiovascular Rhythm: regular Heart Sounds: Present: S1 & S2. Absent: gallop, rub - Extremities Extremities: no ischemia, No edema, Full ROM - Abdominal General gastrointestinal: soft, non-tender, non-distended, normal bowel sounds - Integumentary Integumentary: Present: clear, warm, dry - Neurologic Neurologic: CNII-XII intact, moves all extremities HEART Score - HEART Score Troponin: Troponin T 0.038 ng/mL (0.00-0.029) H 01/02/21 02:01 Results - Labs CBC & Chem 7: 01/02/21 05:37 01/03/21 04:17 Labs: Laboratory Last Values WBC 6.2 K/mm3 (4.5-11.0) 01/01/21 23:33 RBC 4.86 M/mm3 (3.65-5.03) 01/01/21 23:33 Hgb 13.6 gm/dl (10.1-14.3) 01/02/21 05:37 Hct 41.3 % (30.3-42.9) 01/02/21 05:37 MCV 86 fl (79-97) 01/01/21 23:33 MCH 29 pg (28-32) 01/01/21 23:33 MCHC 33 % (30-34) 01/01/21 23:33 RDW 18.6 % (13.2-15.2) H 01/01/21 23:33 Plt Count 185 K/mm3 (140-440) 01/02/21 05:37 Lymph % (Auto) 12.0 % (13.4-35.0) L 01/01/21 23:33 [place] % (Auto) 8.7 % (0.0-7.3) H 01/01/21 23:33 Eos % (Auto) 0.0 % (0.0-4.3) 01/01/21 23:33 Baso % (Auto) 0.2 % (0.0-1.8) 01/01/21 23:33 Lymph # (Auto) 0.7 K/mm3 (1.2-5.4) L 01/01/21 23:33 [place] # (Auto) 0.5 K/mm3 (0.0-0.8) 01/01/21 23:33 Eos # (Auto) 0.0 K/mm3 (0.0-0.4) 01/01/21 23:33 Baso # (Auto) 0.0 K/mm3 (0.0-0.1) 01/01/21 23:33 Seg Neutrophils % 79.1 % (40.0-70.0) H 01/01/21 23:33 Seg Neutrophils # 4.9 K/mm3 (1.8-7.7) 01/01/21 23:33 PT 14.2 Sec. (12.2-14.9) 01/02/21 05:37 INR 1.05 (0.87-1.13) 01/02/21 05:37 APTT 33.1 Sec. (24.2-36.6) 01/02/21 05:37 D-Dimer 1234.80 ng/mlDDU (0-234) H 01/02/21 05:37 Heparin Anti-Xa Level 1.32 U.I./ml (0.3-0.7) H 01/02/21 19:14 Sodium 139 mmol/L (137-145) D 01/03/21 04:17 Potassium 4.7 mmol/L (3.6-5.0) 01/03/21 04:17 Chloride 105.7 mmol/L (98-107) 01/03/21 04:17 Carbon Dioxide 20 mmol/L (22-30) L 01/03/21 04:17 Anion Gap 18 mmol/L 01/03/21 04:17 BUN 23 mg/dL (7-17) H 01/03/21 04:17 Creatinine 1.5 mg/dL (0.6-1.2) H 01/03/21 04:17 Estimated GFR 43 ml/min 01/03/21 04:17 BUN/Creatinine Ratio 15 % 01/03/21 04:17 Glucose 137 mg/dL (65-100) H 01/03/21 04:17 POC Glucose 92 mg/dL (70-105) 01/02/21 13:03 Lactic Acid 1.80 mmol/L (0.7-2.0) 01/01/21 23:33 Calcium 7.1 mg/dL (8.4-10.2) L D 01/03/21 04:17 Ferritin 317.0 ng/mL (10.0-200.0) H 01/02/21 05:37 Total Bilirubin 0.60 mg/dL (0.1-1.2) 01/01/21 23:33 AST 32 units/L (5-40) 01/01/21 23:33 ALT 17 units/L (7-56) 01/01/21 23:33 Alkaline Phosphatase 82 units/L (35-129) 01/01/21 23:33 Lactate Dehydrogenase 282 units/L (91-180) H 01/02/21 05:37 Troponin T 0.038 ng/mL (0.00-0.029) H 01/02/21 02:01 C-Reactive Protein 2.60 mg/dL (0.00-1.30) H 01/02/21 05:37 NT-Pro-B Natriuret Pep 398.4 pg/mL (0-900) 01/01/21 23:33 Total Protein 8.2 g/dL (6.3-8.2) 01/01/21 23:33 Albumin 3.4 g/dL (3.9-5) L 01/01/21 23:33 Albumin/Globulin Ratio 0.7 % 01/01/21 23:33 Triglycerides 284 mg/dL (2-149) H 01/01/21 23:33 Cholesterol 151 mg/dL (50-199) 01/01/21 23:33 LDL Cholesterol Direct 65 mg/dL (50-130) 01/01/21 23:33 HDL Cholesterol 20 mg/dL (40-59) L 01/01/21 23:33 Cholesterol/HDL Ratio 7.55 % 01/01/21 23:33 Procalcitonin 0.71 ng/mL (<0.15) 01/02/21 05:37 Urine Color Izzy (Yellow) 01/02/21 00:15 Urine Turbidity Cloudy (Clear) 01/02/21 00:15 Urine pH 6.0 (5.0-7.0) 01/02/21 00:15 Ur Specific [place] 1.016 (1.003-1.030) 01/02/21 00:15 Urine Protein 100 mg/dl mg/dL (Negative) 01/02/21 00:15 Urine Glucose (UA) Neg mg/dL (Negative) 01/02/21 00:15 Urine Ketones Neg mg/dL (Negative) 01/02/21 00:15 Urine Blood Lg (Negative) 01/02/21 00:15 Urine Nitrite Neg (Negative) 01/02/21 00:15 Urine Bilirubin Neg (Negative) 01/02/21 00:15 Urine Urobilinogen 4.0 mg/dL (<2.0) 01/02/21 00:15 Ur Leukocyte Esterase Mod (Negative) 01/02/21 00:15 Urine WBC (Auto) 88.0 /HPF (0.0-6.0) H 01/02/21 00:15 Urine RBC (Auto) 56.0 /HPF (0.0-6.0) 01/02/21 00:15 U Epithel Cells (Auto) 2.0 /HPF (0-13.0) 01/02/21 00:15 Urine WBC Clumps 1+ /HPF 01/02/21 00:15 Urine Mucus Few /HPF 01/02/21 00:15 Urine Yeast (Budding) Few /HPF 01/02/21 00:15 Coronavirus (PCR) Positive (Negative) A 01/02/21 Unknown Microbiology: Microbiology 01/01/21 23:33 Peripheral/Venous Blood Culture - Preliminary Culture in Progress 01/01/21 23:23 Peripheral/Venous Blood Culture - Preliminary Culture in Progress Active Medications - Current Medications Current Medications: Generic Name Dose Route Start Last Admin Trade Name Freq PRN Reason Stop Dose Admin Acetaminophen 650 mg 01/02/21 01:40 Acetaminophen 325 Mg Tab PO Q4H PRN Pain, Mild (1-3) Aspirin 300 mg 01/02/21 10:00 01/02/21 13:50 Aspirin 300 Mg Rect Supp RI 300 mg QDAY [facility] Administration Atorvastatin Calcium 40 mg 01/02/21 22:00 01/03/21 00:30 Atorvastatin 40 Mg Tab PO 40 mg QHS [facility] Administration Bisacodyl 10 mg 01/02/21 01:40 Bisacodyl 10 Mg Rect Supp RI QDAY PRN Constipation Dexamethasone 6 mg 01/03/21 10:00 Dexamethasone 4 Mg/Ml Vial IV 01/12/21 10:01 Q24HR [facility] Ceftriaxone Sodium 1 gm in 50 mls @ 100 mls/hr 01/02/21 01:00 01/02/21 12:50 Rocephin/Ns 1 Gm/50 Ml IV 100 mls/hr Q24HR [facility] Administration Protocol Heparin Sodium/Sodium Chloride 25,000 unit in 500 mls @ 18 mls/hr 01/02/21 04:00 01/02/21 13:30 Heparin/ 0.45% Nacl-25,000 Unit/500 Ml IV 800 units/hr TITR [facility] 16 mls/hr Titration Protocol 900 UNITS/HR Azithromycin 500 mg in 250 mls @ 250 mls/hr 01/02/21 06:00 01/03/21 07:00 Zithromax/Ns IV 250 mls/hr Q24H [facility] Administration Sodium Bicarbonate 150 meq/ 1,150 mls @ 84 mls/hr 01/02/21 16:00 01/02/21 17:00 Dextrose IV 84 mls/hr DIRECT [facility] Administration Metoclopramide HCl 5 mg 01/02/21 01:40 Metoclopramide 10 Mg Tab PO Q6H PRN Nausea And Vomiting Morphine Sulfate 2 mg 01/02/21 01:40 Morphine 2 Mg/1 Ml Inj IV Q4H PRN Pain, Moderate (4-6) Morphine Sulfate 4 mg 01/02/21 01:40 Morphine 4 Mg/1 Ml Inj IV Q4H PRN Pain , Severe (7-10) Nifedipine 60 mg 01/02/21 13:00 01/03/21 00:30 Nifedipine Xl 60 Mg Tab PO 60 mg BID [facility] Administration Ondansetron HCl 4 mg 01/02/21 01:40 Ondansetron 4 Mg/2 Ml Inj IV Q8H PRN Nausea And Vomiting Promethazine HCl 25 mg 01/02/21 01:40 Promethazine 25 Mg Rect Supp RI Q6H PRN Nausea And Vomiting Sodium Chloride 10 ml 01/02/21 10:00 01/03/21 01:46 Sodium Chloride 0.9% 10 Ml Flush Syringe IV 10 ml BID [facility] Administration Sodium Chloride 10 ml 01/02/21 01:40 Sodium Chloride 0.9% 10 Ml Flush Syringe IV PRN PRN LINE FLUSH Nutrition/Malnutrition Assess - Dietary Evaluation Nutrition/Malnutrition Findings: Nutrition Notes Start: 01/02/21 10:21 Freq: Status: Active Protocol: Document 01/02/21 10:21 GB (Rec: 01/02/21 10:29 GB [id number]) Nutrition Notes Need for Assessment generated from: MD Order Initial or Follow up Assessment Current Diagnosis Hypertension,Stroke Other Pertinent Diagnosis Consult for diet education Current Diet NPO x1 Labs/Tests 01/01: Na 147, BUN 37, creatinine 2.3, Tg 284 01/02: ferritin 317 (slight improvement) Pertinent Medications azithromycin Height 5 ft 1 in Weight 63.503 kg [place] Body Weight (kg) 47.72 BMI 26.4 Weight change and time frame No reported weight change. Weight Status Overweight Subjective/Other Information Pt in ER holding for admit to room. Education to be reviewed following room admit. Percent of energy/protein needs met: 0% at this time with NPOx1 day Burn Absent Trauma Absent GI Symptoms None Food Allergy No Skin Integrity/Comment No complications reported Current % PO Other Minimum of two criteria No #1 Nutrition Diagnosis Food and nutrition-related knowledge deficit Comments: admitted for UTI/AMS Etiology consult for diet education As Evidenced by Signs and Symptoms education relating to history of HTN/stroke. Is patient on ventilator? No Is Patient Ambulatory and/or Out of Bed No REE-([place]-confined to bed) 1393.596 Kcal/Kg value to use for calculation 22 Approximate Energy Requirements Using 1397 kcal/Kg Calculation Used for Recommendations Kcal/kg Additional Notes Protein 1-1.2 g/kg @ 64k- 77g Fluids: 1 ml/kcal or per MD Nutrition Intervention Change Diet Order: NPO x 1, once medically feasible advance diet to low sodium/heart healthy Nutrition Support: n/a Add Supplement/Snack (indicate name/kcal n/a /protein ) Goal #1 Education to be provided to pt post admittance to room. Goal #2 Diet advanced to low sodium/ heart healthy Anticipated Discharge Needs: no specialized nutrition instructions at this time Follow-Up By: 01/06/21 Additional Comments f/u: provide HTN/stroke nutrition therapy education
--- NOTE | 2021-01-03 10:21 | Consultation ---
History of Present Illness - Reason for Consult Consult date: 01/03/21 COVID - History of Present Illness 55-year-old female with history of hypertension, previous stroke, admitted on 01/01/2021 secondary to altered mental status for 4 days per family members. Patient is not the best historian. On arrival, temperature 98.6, HR 120, RR 25, O2 sat 93%, BP 176/124. Creatinine 2.3. D-dimer 2078. CRP 2.5. Ferritin 320. Procalcitonin 0.7. Chest x-ray with left-sided infiltrate. Urinalysis with 88 WBCs and moderate leukocyte esterase. VQ scan with low probability for PE. CT of the head with left basal ganglia changes. O2 sat dropped to 78%. Patient currently on 4 L nasal cannula. Review of Systems: reviewed ED and H&P notes. Review of system deferred to minimize COVID-19 transmission. Past History Past Medical History: hypertension, stroke Past Surgical History: Other (Not obtainable) Social history: other (Not obtainable) Family history: other (Not obtainable) Medications and Allergies Allergies Allergy/AdvReac Type Severity Reaction Status Date / Time Sulfa (Sulfonamide Allergy Unknown Verified 01/02/21 00:42 Antibiotics) Home Medications Medication Instructions Recorded Confirmed Last Taken Type Aspirin [Aspirin BABY CHEW TAB] 81 mg PO QDAY 01/02/21 01/02/21 Unknown History carvediloL [Coreg] 12.5 mg PO BID 01/02/21 01/02/21 Unknown History donepeziL [Aricept] 10 mg PO QHS 01/02/21 01/02/21 Unknown History hydrALAZINE [Apresoline TAB] 100 mg PO Q8HR 01/02/21 01/02/21 Unknown History Active Meds: Active Medications Acetaminophen (Acetaminophen 325 Mg Tab) 650 mg PO Q4H PRN PRN Reason: Pain, Mild (1-3) Aspirin (Aspirin 300 Mg Rect Supp) 300 mg [place] QDAY [facility] Last Admin: 01/02/21 13:50 Dose: 300 mg Documented by: Atorvastatin Calcium (Atorvastatin 40 Mg Tab) 40 mg PO QHS [facility] Last Admin: 01/03/21 00:30 Dose: 40 mg Documented by: Bisacodyl (Bisacodyl 10 Mg Rect Supp) 10 mg [place] QDAY PRN PRN Reason: Constipation Dexamethasone (Dexamethasone 4 Mg/Ml Vial) 6 mg IV Q24HR [facility] Stop: 01/12/21 10:01 Heparin Sodium (Porcine) (Heparin 5,000 Unit/1 Ml Vial) 5,000 unit SUB-Q Q8HR [facility] Ceftriaxone Sodium (Rocephin/Ns 1 Gm/50 Ml) 1 gm in 50 mls @ 100 mls/hr IV Q24HR [facility]; Protocol Last Admin: 01/02/21 12:50 Dose: 100 mls/hr Documented by: Azithromycin (Zithromax/Ns) 500 mg in 250 mls @ 250 mls/hr IV Q24H [facility] Last Admin: 01/03/21 07:00 Dose: 250 mls/hr Documented by: Sodium Bicarbonate 150 meq/ (Dextrose) 1,150 mls @ 84 mls/hr IV DIRECT [facility] Last Admin: 01/02/21 17:00 Dose: 84 mls/hr Documented by: Metoclopramide HCl (Metoclopramide 10 Mg Tab) 5 mg PO Q6H PRN PRN Reason: Nausea And Vomiting Morphine Sulfate (Morphine 2 Mg/1 Ml Inj) 2 mg IV Q4H PRN PRN Reason: Pain, Moderate (4-6) Morphine Sulfate (Morphine 4 Mg/1 Ml Inj) 4 mg IV Q4H PRN PRN Reason: Pain , Severe (7-10) Nifedipine (Nifedipine Xl 60 Mg Tab) 60 mg PO BID [facility] Last Admin: 01/03/21 00:30 Dose: 60 mg Documented by: Ondansetron HCl (Ondansetron 4 Mg/2 Ml Inj) 4 mg IV Q8H PRN PRN Reason: Nausea And Vomiting Promethazine HCl (Promethazine 25 Mg Rect Supp) 25 mg [place] Q6H PRN PRN Reason: Nausea And Vomiting Sodium Chloride (Sodium Chloride 0.9% 10 Ml Flush Syringe) 10 ml IV BID [facility] Last Admin: 01/03/21 01:46 Dose: 10 ml Documented by: Sodium Chloride (Sodium Chloride 0.9% 10 Ml Flush Syringe) 10 ml IV PRN PRN PRN Reason: LINE FLUSH Physical Examination - Physical Exam Narrative exam: Physical exam deferred to minimize COVID-19 transmission during pandemic. ER and internal medicine physical examination notes reviewed. - Constitutional Vitals: Vital Signs Temp Pulse Resp BP Pulse Ox 98.6 F 117 H 20 128/79 97 01/01/21 23:15 01/03/21 09:01 01/03/21 09:04 01/03/21 09:01 01/03/21 09:04 Results - Labs CBC & Chem 7: 01/02/21 05:37 01/03/21 04:17 Labs: Abnormal lab results 01/02/21 01/02/21 01/02/21 Range/Units 13:09 19:14 Unknown Heparin Anti-Xa Level 1.87 H 1.32 H (0.3-0.7) U.I./ml Carbon Dioxide (22-30) mmol/L BUN (7-17) mg/dL Creatinine (0.6-1.2) mg/dL Glucose (65-100) mg/dL Calcium (8.4-10.2) mg/dL Coronavirus (PCR) Positive A (Negative) 01/03/21 Range/Units 04:17 Heparin Anti-Xa Level (0.3-0.7) U.I./ml Carbon Dioxide 20 L (22-30) mmol/L BUN 23 H (7-17) mg/dL Creatinine 1.5 H (0.6-1.2) mg/dL Glucose 137 H (65-100) mg/dL Calcium 7.1 L D (8.4-10.2) mg/dL Coronavirus (PCR) (Negative) Assessment and Plan Cultures: Blood culture 01/01/2021 pending SARS CoV2 PCR positive Assessment: 55-year-old female with history of hypertension, previous stroke, admitted on 01/01/2021 secondary to altered mental status for 4 days per family members: #Severe COVID pneumonia +/- bacterial pneumonia: CXR with left-sided pneumonia. Infllammatory markers elevated. D-dimer 2078. CRP 2.5. Ferritin 320. Procalcitonin elevated at 0.7 in the setting of FAVIOLA. VQ scan low probability for PE. #Acute hypoxemic respiratory failure: To 70%, currently on 4 L nasal cannula. #UTI: Urinalysis consistent with UTI. #FAVIOLA: Creatinine improving. From COVID #Encephalopathy: History of CVA ?acute CVA +/- COVID. CT with left basal ganglia density. #Hypertension uncontrolled. Recommendations: -Continue dexamethasone 6 mg IV/PO daily for 10 days -Start Remdesivir for 5 days (CrCl>30 mg/mL) -Monitor inflammatory markers - ferritin, Ddimer, CRP, LDH -Monitor liver function test on Remdesivir -Continue anticoagulation per System Protocol -Prone positioning as possible -Continue ceftriaxone for 5 days and azithromycin for 3 days All laboratory, cultures and imaging were reviewed. Will follow Clemencia Queen MD Infectious Diseases [employer] [facility] M [phone] O [phone]
--- NOTE | 2021-01-03 10:40 | Progress Note ---
Assessment and Plan Impression: * faviola * sepsis * acute hypoxic resp failure * ams * metabolic acidosis * Bilateral PNA * Covid PNA * UTI with sepsis Plan: * no emergent indication for POOL NURSE at this time * cr is better today * FAVIOLA likely multifactorial, hypoperfusion due to sepsis, ATN with COVID * keep MAP.65 * abx per primary team * added iv bicarb for acidosis and volume, transit to NS * calcium noted, replete prn * strict i/os and daily lytes * avoid nephrotoxins Subjective Date of service: 01/03/21 Principal diagnosis: faviola Interval history: labs and chart reviewed events noted resting in bed today Objective - Exam Narrative Exam: primary team exam noted, exam deferred for preservation of PPE - Vital Signs Vital signs: Vital Signs - 12hr 01/02/21 01/03/21 01/03/21 23:01 01:01 02:00 Pulse Rate 124 H 114 H 113 H Respiratory 22 15 16 Rate Blood Pressure 191/112 151/86 162/90 O2 Sat by Pulse 96 98 96 Oximetry 01/03/21 01/03/21 01/03/21 02:30 03:01 03:30 Pulse Rate 113 H 116 H 121 H Respiratory 16 19 17 Rate Blood Pressure 128/72 138/87 116/86 O2 Sat by Pulse 96 97 95 Oximetry 01/03/21 01/03/21 01/03/21 04:01 04:30 05:01 Pulse Rate 113 H 122 H 125 H Respiratory 24 18 27 H Rate Blood Pressure 134/77 117/75 124/79 O2 Sat by Pulse 96 88 88 Oximetry 01/03/21 01/03/21 01/03/21 05:30 06:01 06:30 Pulse Rate 121 H 119 H 123 H Respiratory 20 17 15 Rate Blood Pressure 151/80 150/75 141/85 O2 Sat by Pulse 78 L 90 94 Oximetry 01/03/21 01/03/21 01/03/21 07:01 07:30 08:01 Pulse Rate 112 H 121 H 110 H Respiratory 17 25 H 15 Rate Blood Pressure 140/77 134/85 126/81 O2 Sat by Pulse 97 95 95 Oximetry 01/03/21 01/03/21 01/03/21 08:30 09:01 09:04 Pulse Rate 121 H 117 H Respiratory 21 20 20 Rate Blood Pressure 141/87 128/79 O2 Sat by Pulse 96 97 97 Oximetry - Lab 01/02/21 05:37 01/03/21 04:17 Most recent lab results Calcium 7.1 mg/dL (8.4-10.2) L D 01/03/21 04:17 Medications & Allergies - Medications Allergies/Adverse Reactions: Allergies Sulfa (Sulfonamide Antibiotics) Allergy (Verified 01/02/21 00:42) Unknown Home Medications: Home Medications Medication Instructions Recorded Confirmed Last Taken Type Aspirin [Aspirin BABY CHEW TAB] 81 mg PO QDAY 01/02/21 01/02/21 Unknown History carvediloL [Coreg] 12.5 mg PO BID 01/02/21 01/02/21 Unknown History donepeziL [Aricept] 10 mg PO QHS 01/02/21 01/02/21 Unknown History hydrALAZINE [Apresoline TAB] 100 mg PO Q8HR 01/02/21 01/02/21 Unknown History Active Medications: Generic Name Dose Route Start Last Admin Trade Name Freq PRN Reason Stop Dose Admin Acetaminophen 650 mg 01/02/21 01:40 Acetaminophen 325 Mg Tab PO Q4H PRN Pain, Mild (1-3) Aspirin 300 mg 01/02/21 10:00 01/02/21 13:50 Aspirin 300 Mg Rect Supp [place] 300 mg QDAY [facility] Administration Atorvastatin Calcium 40 mg 01/02/21 22:00 01/03/21 00:30 Atorvastatin 40 Mg Tab PO 40 mg QHS [facility] Administration Bisacodyl 10 mg 01/02/21 01:40 Bisacodyl 10 Mg Rect Supp [place] QDAY PRN Constipation Dexamethasone 6 mg 01/03/21 10:00 Dexamethasone 4 Mg/Ml Vial IV 01/12/21 10:01 Q24HR [facility] Heparin Sodium (Porcine) 5,000 unit 01/03/21 14:00 Heparin 5,000 Unit/1 Ml Vial SUB-Q Q8HR [facility] Ceftriaxone Sodium 1 gm in 50 mls @ 100 mls/hr 01/02/21 01:00 01/02/21 12:50 Rocephin/Ns 1 Gm/50 Ml IV 100 mls/hr Q24HR [facility] Administration Protocol Azithromycin 500 mg in 250 mls @ 250 mls/hr 01/02/21 06:00 01/03/21 07:00 Zithromax/Ns IV 250 mls/hr Q24H [facility] Administration Sodium Bicarbonate 150 meq/ 1,150 mls @ 84 mls/hr 01/02/21 16:00 01/02/21 17:00 Dextrose IV 84 mls/hr DIRECT [facility] Administration REMDESIVIR 200 mg/ Sodium 250 mls @ 500 mls/hr 01/03/21 10:34 Chloride IV 01/03/21 11:03 ONCE ONE REMDESIVIR 100 mg/ Sodium 250 mls @ 500 mls/hr 01/04/21 21:00 Chloride IV 01/07/21 21:29 Q24HR@2100 [facility] Metoclopramide HCl 5 mg 01/02/21 01:40 Metoclopramide 10 Mg Tab PO Q6H PRN Nausea And Vomiting Morphine Sulfate 2 mg 01/02/21 01:40 Morphine 2 Mg/1 Ml Inj IV Q4H PRN Pain, Moderate (4-6) Morphine Sulfate 4 mg 01/02/21 01:40 Morphine 4 Mg/1 Ml Inj IV Q4H PRN Pain , Severe (7-10) Nifedipine 60 mg 01/02/21 13:00 01/03/21 00:30 Nifedipine Xl 60 Mg Tab PO 60 mg BID [facility] Administration Ondansetron HCl 4 mg 01/02/21 01:40 Ondansetron 4 Mg/2 Ml Inj IV Q8H PRN Nausea And Vomiting Promethazine HCl 25 mg 01/02/21 01:40 Promethazine 25 Mg Rect Supp [place] Q6H PRN Nausea And Vomiting Sodium Chloride 10 ml 01/02/21 10:00 01/03/21 01:46 Sodium Chloride 0.9% 10 Ml Flush Syringe IV 10 ml BID [facility] Administration Sodium Chloride 10 ml 01/02/21 01:40 Sodium Chloride 0.9% 10 Ml Flush Syringe IV PRN PRN LINE FLUSH Sodium Chloride 50 ml 01/03/21 21:00 Sodium Chloride 0.9% 50 Ml Ivpb IV 01/07/21 21:01 Q24HR@[facility]
--- NOTE | 2021-01-03 10:43 | Ultrasound Report ---
ULTRASOUND RENAL INDICATION / CLINICAL INFORMATION: renal failure. COMPARISON: None available. FINDINGS: RIGHT KIDNEY: Length = 10.3 cm. - Echogenicity: Normal. - Cortical Thickness: Normal. - Hydronephrosis: None. - Cyst / Mass: There is a simple renal cyst measuring 2.1 x 1.9 x 1.9 cm - Stones: None seen. LEFT KIDNEY: Length = 10.1 cm. - Echogenicity: Normal. - Cortical Thickness: Normal. - Hydronephrosis: None. - Cyst / Mass: There is a simple renal cyst measuring 1.2 x 1.5 cm - Stones: None seen. URINARY BLADDER: No significant abnormality. FREE FLUID: None. ADDITIONAL FINDINGS: None. IMPRESSION: 1. Bilateral renal cysts, otherwise unremarkable. Signer Name: Chris Morales DO Signed: 01/03/2021 10:39 AM Workstation Name: [id number]
--- NOTE | 2021-01-03 11:40 | Vascular Lab Report ---
DUPLEX DOPPLER LOWER EXTREMITY VEINS, BILATERAL INDICATION / CLINICAL INFORMATION: Rule out DVT. TECHNIQUE: Duplex doppler imaging was performed through the veins of both lower extremities using nate ous compression and other maneuvers. COMPARISON: None available. FINDINGS: RIGHT COMMON FEMORAL VEIN: Negative. RIGHT FEMORAL VEIN: Negative. RIGHT POPLITEAL VEIN: Negative. RIGHT CALF VEINS: Negative. LEFT COMMON FEMORAL VEIN: Negative. LEFT FEMORAL VEIN: Negative. LEFT POPLITEAL VEIN: Negative. LEFT CALF VEINS: Negative. ADDITIONAL FINDINGS: None. IMPRESSION: 1. No sonographic evidence for DVT in either lower extremity. Signer Name: Chris Morales DO Signed: 01/03/2021 11:35 AM Workstation Name: [id number]
[2021-01-03] MEDS ORDERED: CALCIUM GLUCONATE 1,000 MG in SODIUM CHLORIDE 0.9% 100 ML IV ONE (12:00)
[2021-01-03] MEDS ORDERED: REMDESIVIR 200 MG in SODIUM CHLORIDE 0.9% 250ML 250 ML IV ONE (13:00)
[2021-01-03] MEDS: cefTRIAXone/NS 1 GM/50 ML 1 GM/50 ML BAG IV SCH (13:52)
[2021-01-03] MEDS: dexAMETHasone 4 MG/ML VIAL IV SCH (13:52)
[2021-01-03] MEDS: ASPIRIN 300 MG RECT SUPP PR SCH (13:52)
[2021-01-03] MEDS: SODIUM CHLORIDE 0.9% 50 ML IVPB IV SCH (13:53)
[2021-01-03] MEDS: HEPARIN 5,000 UNIT/1 ML VIAL SUB-Q SCH (14:11)
[2021-01-03 22:14] LABS: Albumin 2.9 g/dL (3.9-5); Calcium 7.6 mg/dL (8.4-10.2)
[2021-01-04] MEDS: SODIUM CHLORIDE 0.9% 1000 ML 1,000 ML IV SCH
[2021-01-04] MEDS: AZITHROMYCIN/NS 500 MG/250 ML 500 MG/250 ML BAG IV SCH (07:41)
--- NOTE | 2021-01-04 08:13 | Progress Note ---
Assessment and Plan Assessment and plan: CVA. CT of the head with left basal ganglia changes. Sepsis. Present on admission. Patient meets criteria given the tachycardia, tachypnea and diagnosis of UTI/pneumonia. Bilateral pneumonia. COVID-19 pneumonia. Acute kidney injury. Etiology secondary to ATN/sepsis. UTI. Toxic metabolic encephalopathy. 01/02/2021. Altered mentation is secondary to toxic metabolic encephalopathy from sepsis/pneumonia/UTI +/-CVA. CT scan of the head reveals several findings including: Suspicious hypodensity within the left basal ganglia which could be secondary to acute infarct. MRI recommended for further evaluation. There are several small lacunar infarcts identified within the right basal ganglia. Neurology consultation when available. Patient will be continued on IV antibiotics. Patient currently undergoing VQ scan for elevated D-dimer to rule out PE. Follow-up Covid PCR. Total visit time equals 35 minutes with greater than 50% spent on coordination of care and counseling. 01/03/2021. Await MRI brain. Echocardiogram reveals left ventricular size normal with normal systolic function. EF 50 to 60%. Mild diastolic dysfunction. No PFO. Creatinine has improved to 1.5. Nephrology following. Covid PCR positive on 01/02. Continue IV antibiotics. Follow-up blood cultures. Check procalcitonin. Continue dexamethasone. VQ scan is negative for PE. Therefore, we will discontinue IV heparin drip. 01/04/2021. Continue dexamethasone 6 mg IV for 10 days. ID initiated remdesivir yesterday. Continue to trend inflammatory markers of ferritin, D-dimer, CRP and LDH. Initial markers elevated with D-dimer 2078. CRP 2.5. Ferritin 320. Continue DVT prophylactic anticoagulation. Continue ceftriaxone and azithromycin given the elevated procalcitonin. Continue to monitor creatinine, strict i/os and daily lytes, avoid nephrotoxins. Await MRI brain to further assess abnormal CT scan and CVA. Neurology consultation pending History Interval history: No new issues overnight. Hospitalist Physical - Constitutional Vitals: Temp Pulse Resp BP Pulse Ox 97.9 F 117 H 28 H 141/85 99 01/03/21 11:32 01/03/21 18:31 01/03/21 18:31 01/03/21 18:31 01/03/21 18:31 General appearance: Present: no acute distress, well-nourished, other (Dry oral mucosa) - EENT Eyes: Present: PERRL, EOM intact ENT: hearing intact, clear oral mucosa, dentition normal - Neck Neck: Present: supple, normal ROM - Respiratory Respiratory effort: normal Respiratory: bilateral: CTA - Cardiovascular Rhythm: regular Heart Sounds: Present: S1 & S2. Absent: gallop, rub - Extremities Extremities: no ischemia, No edema, Full ROM - Abdominal General gastrointestinal: soft, non-tender, non-distended, normal bowel sounds - Integumentary Integumentary: Present: clear, warm, dry - Neurologic Neurologic: CNII-XII intact, moves all extremities HEART Score - HEART Score Troponin: Troponin T 0.038 ng/mL (0.00-0.029) H 01/02/21 02:01 Results - Labs CBC & Chem 7: 01/02/21 05:37 01/03/21 21:20 Labs: Laboratory Last Values WBC 6.2 K/mm3 (4.5-11.0) 01/01/21 23:33 RBC 4.86 M/mm3 (3.65-5.03) 01/01/21 23:33 Hgb 13.6 gm/dl (10.1-14.3) 01/02/21 05:37 Hct 41.3 % (30.3-42.9) 01/02/21 05:37 MCV 86 fl (79-97) 01/01/21 23:33 MCH 29 pg (28-32) 01/01/21 23:33 MCHC 33 % (30-34) 01/01/21 23:33 RDW 18.6 % (13.2-15.2) H 01/01/21 23:33 Plt Count 185 K/mm3 (140-440) 01/02/21 05:37 Lymph % (Auto) 12.0 % (13.4-35.0) L 01/01/21 23:33 Clarke % (Auto) 8.7 % (0.0-7.3) H 01/01/21 23:33 Eos % (Auto) 0.0 % (0.0-4.3) 01/01/21 23:33 Baso % (Auto) 0.2 % (0.0-1.8) 01/01/21 23:33 Lymph # (Auto) 0.7 K/mm3 (1.2-5.4) L 01/01/21 23:33 Clarke # (Auto) 0.5 K/mm3 (0.0-0.8) 01/01/21 23:33 Eos # (Auto) 0.0 K/mm3 (0.0-0.4) 01/01/21 23:33 Baso # (Auto) 0.0 K/mm3 (0.0-0.1) 01/01/21 23:33 Seg Neutrophils % 79.1 % (40.0-70.0) H 01/01/21 23:33 Seg Neutrophils # 4.9 K/mm3 (1.8-7.7) 01/01/21 23:33 PT 14.2 Sec. (12.2-14.9) 01/02/21 05:37 INR 1.05 (0.87-1.13) 01/02/21 05:37 APTT 33.1 Sec. (24.2-36.6) 01/02/21 05:37 D-Dimer 1234.80 ng/mlDDU (0-234) H 01/02/21 05:37 Heparin Anti-Xa Level 1.32 U.I./ml (0.3-0.7) H 01/02/21 19:14 Sodium 146 mmol/L (137-145) H D 01/03/21 21:20 Potassium 3.7 mmol/L (3.6-5.0) D 01/03/21 21:20 Chloride 103.6 mmol/L (98-107) 01/03/21 21:20 Carbon Dioxide 27 mmol/L (22-30) D 01/03/21 21:20 Anion Gap 19 mmol/L 01/03/21 21:20 BUN 29 mg/dL (7-17) H 01/03/21 21:20 Creatinine 2.2 mg/dL (0.6-1.2) H 01/03/21 21:20 Estimated GFR 28 ml/min 01/03/21 21:20 BUN/Creatinine Ratio 13 % 01/03/21 21:20 Glucose 137 mg/dL (65-100) H 01/03/21 21:20 POC Glucose 118 mg/dL (70-105) H 01/03/21 12:52 Lactic Acid 1.80 mmol/L (0.7-2.0) 01/01/21 23:33 Calcium 7.6 mg/dL (8.4-10.2) L 01/03/21 21:20 Ferritin 317.0 ng/mL (10.0-200.0) H 01/02/21 05:37 Total Bilirubin 0.60 mg/dL (0.1-1.2) 01/03/21 21:20 AST 48 units/L (5-40) H 01/03/21 21:20 ALT 16 units/L (7-56) 01/03/21 21:20 Alkaline Phosphatase 59 units/L (35-129) 01/03/21 21:20 Lactate Dehydrogenase 282 units/L (91-180) H 01/02/21 05:37 Troponin T 0.038 ng/mL (0.00-0.029) H 01/02/21 02:01 C-Reactive Protein 2.60 mg/dL (0.00-1.30) H 01/02/21 05:37 NT-Pro-B Natriuret Pep 398.4 pg/mL (0-900) 01/01/21 23:33 Total Protein 7.0 g/dL (6.3-8.2) 01/03/21 21:20 Albumin 2.9 g/dL (3.9-5) L 01/03/21 21:20 Albumin/Globulin Ratio 0.7 % 01/03/21 21:20 Triglycerides 284 mg/dL (2-149) H 01/01/21 23:33 Cholesterol 151 mg/dL (50-199) 01/01/21 23:33 LDL Cholesterol Direct 65 mg/dL (50-130) 01/01/21 23:33 HDL Cholesterol 20 mg/dL (40-59) L 01/01/21 23:33 Cholesterol/HDL Ratio 7.55 % 01/01/21 23:33 Procalcitonin 0.71 ng/mL (<0.15) 01/02/21 05:37 Urine Color Izzy (Yellow) 01/02/21 00:15 Urine Turbidity Cloudy (Clear) 01/02/21 00:15 Urine pH 6.0 (5.0-7.0) 01/02/21 00:15 Ur Specific Corona 1.016 (1.003-1.030) 01/02/21 00:15 Urine Protein 100 mg/dl mg/dL (Negative) 01/02/21 00:15 Urine Glucose (UA) Neg mg/dL (Negative) 01/02/21 00:15 Urine Ketones Neg mg/dL (Negative) 01/02/21 00:15 Urine Blood Lg (Negative) 01/02/21 00:15 Urine Nitrite Neg (Negative) 01/02/21 00:15 Urine Bilirubin Neg (Negative) 01/02/21 00:15 Urine Urobilinogen 4.0 mg/dL (<2.0) 01/02/21 00:15 Ur Leukocyte Esterase Mod (Negative) 01/02/21 00:15 Urine WBC (Auto) 88.0 /HPF (0.0-6.0) H 01/02/21 00:15 Urine RBC (Auto) 56.0 /HPF (0.0-6.0) 01/02/21 00:15 U Epithel Cells (Auto) 2.0 /HPF (0-13.0) 01/02/21 00:15 Urine WBC Clumps 1+ /HPF 01/02/21 00:15 Urine Mucus Few /HPF 01/02/21 00:15 Urine Yeast (Budding) Few /HPF 01/02/21 00:15 Coronavirus (PCR) Positive (Negative) A 01/02/21 Unknown Microbiology: Microbiology 01/02/21 00:15 Urine,Clean Catch Urine Culture - Final NO GROWTH AFTER 48 HOURS 01/01/21 23:33 Peripheral/Venous Blood Culture - Preliminary NO GROWTH AFTER 24 HOURS 01/01/21 23:23 Peripheral/Venous Blood Culture - Preliminary NO GROWTH AFTER 24 HOURS Active Medications - Current Medications Current Medications: Generic Name Dose Route Start Last Admin Trade Name Freq PRN Reason Stop Dose Admin Acetaminophen 650 mg 01/02/21 01:40 Acetaminophen 325 Mg Tab PO Q4H PRN Pain, Mild (1-3) Aspirin 300 mg 01/02/21 10:00 01/03/21 13:52 Aspirin 300 Mg Rect Supp SD Not Given QDAY [facility] Atorvastatin Calcium 40 mg 01/02/21 22:00 01/04/21 00:00 Atorvastatin 40 Mg Tab PO 40 mg QHS [facility] Administration Bisacodyl 10 mg 01/02/21 01:40 Bisacodyl 10 Mg Rect Supp SD QDAY PRN Constipation Dexamethasone 6 mg 01/03/21 10:00 01/03/21 13:52 Dexamethasone 4 Mg/Ml Vial IV 01/12/21 10:01 Not Given Q24HR [facility] Heparin Sodium (Porcine) 5,000 unit 01/03/21 14:00 01/04/21 00:00 Heparin 5,000 Unit/1 Ml Vial SUB-Q 5,000 unit Q8HR [facility] Administration Ceftriaxone Sodium 1 gm in 50 mls @ 100 mls/hr 01/02/21 01:00 01/03/21 13:52 Rocephin/Ns 1 Gm/50 Ml IV 01/05/21 10:29 Not Given Q24HR [facility] Protocol REMDESIVIR 100 mg/ Sodium 250 mls @ 500 mls/hr 01/04/21 21:00 Chloride IV 01/07/21 21:29 Q24HR@2100 [facility] Sodium Chloride 1,000 mls @ 100 mls/hr 01/03/21 12:00 01/04/21 00:00 Nacl 0.9% 1000 Ml IV 100 mls/hr DIRECT [facility] Administration Metoclopramide HCl 5 mg 01/02/21 01:40 Metoclopramide 10 Mg Tab PO Q6H PRN Nausea And Vomiting Morphine Sulfate 2 mg 01/02/21 01:40 Morphine 2 Mg/1 Ml Inj IV Q4H PRN Pain, Moderate (4-6) Morphine Sulfate 4 mg 01/02/21 01:40 Morphine 4 Mg/1 Ml Inj IV Q4H PRN Pain , Severe (7-10) Nifedipine 60 mg 01/02/21 13:00 01/04/21 00:00 Nifedipine Xl 60 Mg Tab PO 60 mg BID [facility] Administration Ondansetron HCl 4 mg 01/02/21 01:40 Ondansetron 4 Mg/2 Ml Inj IV Q8H PRN Nausea And Vomiting Promethazine HCl 25 mg 01/02/21 01:40 Promethazine 25 Mg Rect Supp SD Q6H PRN Nausea And Vomiting Sodium Chloride 10 ml 01/02/21 10:00 01/03/21 13:52 Sodium Chloride 0.9% 10 Ml Flush Syringe IV Not Given BID [facility] Sodium Chloride 10 ml 01/02/21 01:40 Sodium Chloride 0.9% 10 Ml Flush Syringe IV PRN PRN LINE FLUSH Sodium Chloride 50 ml 01/03/21 13:30 01/03/21 13:53 Sodium Chloride 0.9% 50 Ml Ivpb IV 01/07/21 21:01 Not Given Q24HR@2100 [facility] Nutrition/Malnutrition Assess - Dietary Evaluation Nutrition/Malnutrition Findings: Nutrition Notes Start: 01/02/21 10:21 Freq: Status: Active Protocol: Document 01/02/21 10:21 GB (Rec: 01/02/21 10:29 GB [id number]) Nutrition Notes Need for Assessment generated from: MD Order Initial or Follow up Assessment Current Diagnosis Hypertension,Stroke Other Pertinent Diagnosis Consult for diet education Current Diet NPO x1 Labs/Tests 01/01: Na 147, BUN 37, creatinine 2.3, Tg 284 01/02: ferritin 317 (slight improvement) Pertinent Medications azithromycin Height 5 ft 1 in Weight 63.503 kg [place] Body Weight (kg) 47.72 BMI 26.4 Weight change and time frame No reported weight change. Weight Status Overweight Subjective/Other Information Pt in ER holding for admit to room. Education to be reviewed following room admit. Percent of energy/protein needs met: 0% at this time with NPOx1 day Burn Absent Trauma Absent GI Symptoms None Food Allergy No Skin Integrity/Comment No complications reported Current % PO Other Minimum of two criteria No #1 Nutrition Diagnosis Food and nutrition-related knowledge deficit Comments: admitted for UTI/AMS Etiology consult for diet education As Evidenced by Signs and Symptoms education relating to history of HTN/stroke. Is patient on ventilator? No Is Patient Ambulatory and/or Out of Bed No REE-([facility]-confined to bed) 1393.596 Kcal/Kg value to use for calculation 22 Approximate Energy Requirements Using 1397 kcal/Kg Calculation Used for Recommendations Kcal/kg Additional Notes Protein 1-1.2 g/kg @ 64k- 77g Fluids: 1 ml/kcal or per MD Nutrition Intervention Change Diet Order: NPO x 1, once medically feasible advance diet to low sodium/heart healthy Nutrition Support: n/a Add Supplement/Snack (indicate name/kcal n/a /protein ) Goal #1 Education to be provided to pt post admittance to room. Goal #2 Diet advanced to low sodium/ heart healthy Anticipated Discharge Needs: no specialized nutrition instructions at this time Follow-Up By: 01/06/21 Additional Comments f/u: provide HTN/stroke nutrition therapy education
[2021-01-04 08:45] LABS: Albumin 2.4 g/dL (3.9-5); Calcium 6.9 mg/dL (8.4-10.2)
--- NOTE | 2021-01-04 09:22 | Progress Note ---
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 at this time * cr has worsened today, 1.5->2.2->2.5, was initially improving * FAVIOAL likely multifactorial, hypoperfusion due to sepsis, ATN with COVID * keep MAP>65, BP now stable, back on nifedipine * abx per primary team, note initiation of remdesivir * continue IVF for renal perfusion as tolerated, currently on NS * calcium noted, replete prn * strict i/os and daily lytes * avoid nephrotoxins Subjective Date of service: 01/04/21 Principal diagnosis: faviola Interval history: labs and chart reviewed events noted resting in bed today Objective - Vital Signs Vital signs: primary team exam noted, exam deferred for preservation of PPE - Lab 01/02/21 05:37 01/04/21 08:24 Most recent lab results Calcium 6.9 mg/dL (8.4-10.2) L 01/04/21 08:24 Medications & Allergies - Medications Allergies/Adverse Reactions: Allergies Sulfa (Sulfonamide Antibiotics) Allergy (Verified 01/02/21 00:42) Unknown Home Medications: Home Medications Medication Instructions Recorded Confirmed Last Taken Type Aspirin [Aspirin BABY CHEW TAB] 81 mg PO QDAY 01/02/21 01/02/21 Unknown History carvediloL [Coreg] 12.5 mg PO BID 01/02/21 01/02/21 Unknown History donepeziL [Aricept] 10 mg PO QHS 01/02/21 01/02/21 Unknown History hydrALAZINE [Apresoline TAB] 100 mg PO Q8HR 01/02/21 01/02/21 Unknown History Active Medications: Generic Name Dose Route Start Last Admin Trade Name Freq PRN Reason Stop Dose Admin Acetaminophen 650 mg 01/02/21 01:40 Acetaminophen 325 Mg Tab PO Q4H PRN Pain, Mild (1-3) Aspirin 300 mg 01/02/21 10:00 01/03/21 13:52 Aspirin 300 Mg Rect Supp CO Not Given QDAY [facility] Atorvastatin Calcium 40 mg 01/02/21 22:00 01/04/21 00:00 Atorvastatin 40 Mg Tab PO 40 mg QHS [facility] Administration Bisacodyl 10 mg 01/02/21 01:40 Bisacodyl 10 Mg Rect Supp CO QDAY PRN Constipation Dexamethasone 6 mg 01/03/21 10:00 01/03/21 13:52 Dexamethasone 4 Mg/Ml Vial IV 01/12/21 10:01 Not Given Q24HR [facility] Heparin Sodium (Porcine) 5,000 unit 01/03/21 14:00 01/04/21 00:00 Heparin 5,000 Unit/1 Ml Vial SUB-Q 5,000 unit Q8HR [facility] Administration Ceftriaxone Sodium 1 gm in 50 mls @ 100 mls/hr 01/02/21 01:00 01/03/21 13:52 Rocephin/Ns 1 Gm/50 Ml IV 01/05/21 10:29 Not Given Q24HR [facility] Protocol REMDESIVIR 100 mg/ Sodium 250 mls @ 500 mls/hr 01/04/21 21:00 Chloride IV 01/07/21 21:29 Q24HR@2100 [facility] Sodium Chloride 1,000 mls @ 100 mls/hr 01/03/21 12:00 01/04/21 00:00 Nacl 0.9% 1000 Ml IV 100 mls/hr DIRECT [facility] Administration Metoclopramide HCl 5 mg 01/02/21 01:40 Metoclopramide 10 Mg Tab PO Q6H PRN Nausea And Vomiting Morphine Sulfate 2 mg 01/02/21 01:40 Morphine 2 Mg/1 Ml Inj IV Q4H PRN Pain, Moderate (4-6) Morphine Sulfate 4 mg 01/02/21 01:40 Morphine 4 Mg/1 Ml Inj IV Q4H PRN Pain , Severe (7-10) Nifedipine 60 mg 01/02/21 13:00 01/04/21 00:00 Nifedipine Xl 60 Mg Tab PO 60 mg BID [facility] Administration Ondansetron HCl 4 mg 01/02/21 01:40 Ondansetron 4 Mg/2 Ml Inj IV Q8H PRN Nausea And Vomiting Promethazine HCl 25 mg 01/02/21 01:40 Promethazine 25 Mg Rect Supp CO Q6H PRN Nausea And Vomiting Sodium Chloride 10 ml 01/02/21 10:00 01/03/21 13:52 Sodium Chloride 0.9% 10 Ml Flush Syringe IV Not Given BID [facility] Sodium Chloride 10 ml 01/02/21 01:40 Sodium Chloride 0.9% 10 Ml Flush Syringe IV PRN PRN LINE FLUSH Sodium Chloride 50 ml 01/03/21 13:30 01/03/21 13:53 Sodium Chloride 0.9% 50 Ml Ivpb IV 01/07/21 21:01 Not Given Q24HR@2100 [facility]
[2021-01-04] MEDS: HEPARIN 5,000 UNIT/1 ML VIAL SUB-Q SCH ×4 (09:38→21:44)
[2021-01-04] MEDS: ASPIRIN 300 MG RECT SUPP PR SCH (11:21)
[2021-01-04] MEDS: dexAMETHasone 4 MG/ML VIAL IV SCH (11:21)
[2021-01-04] MEDS: cefTRIAXone/NS 1 GM/50 ML 1 GM/50 ML BAG IV SCH (11:21)
--- NOTE | 2021-01-04 11:30 | Consultation ---
History of Present Illness Consult date: 01/04/21 Reason for Consult: altered mentation History of present illness: Altered mental status History of present illness: 55-year-old -[place] female with known history of hypertension and history of stroke in the past was brought into the emergency room today by EMS for altered mental status. Per EMS patient has been altered for almost 4 days and family decided to send patient to the emergency room for further evaluation. Most of the history was gotten from the ER staff as family is not available and patient unable to give any any good history. According to records patient was tachycardic during transportation to the hospital she was also said to have had a low-grade fever. Upon arrival in the ER she was said to be confused, tachycardic and slightly hypoxic. It is unclear whether patient has been vaccinated against COVID-19. Work-up in the emergency room today significant findings were that of a D-dimer of 1378, elevated troponin of 0.43, BUN and creatinine were 37 and 2.3 respectively. Urinalysis was significant for UTI. Chest x-ray reveals ill-defined airspace disease within the left midlung this could be passenger service representative of pneumonia. CT scan of the head reveals several findings including: Suspicious hypodensity within the left basal ganglia which could be secondary to acute infarct. MRI recommended for further evaluation. There are several small lacunar infarcts identified within the right basal ganglia. Patient admitted with multiple medical problems including encephalopathy, po ssible CVA, UTI, pneumonia and elevated D-dimer. COVID-!( is positive she is on ASA and lipitor Past History Past Medical History: hypertension, stroke Past Surgical History: Other (Not obtainable) Social history: other (Not obtainable) Family history: other (Not obtainable) Medications and Allergies Allergies Allergy/AdvReac Type Severity Reaction Status Date / Time Sulfa (Sulfonamide Allergy Unknown Verified 01/02/21 00:42 Antibiotics) Home Medications Medication Instructions Recorded Confirmed Last Taken Type Aspirin [Aspirin BABY CHEW TAB] 81 mg PO QDAY 01/02/21 01/02/21 Unknown History carvediloL [Coreg] 12.5 mg PO BID 01/02/21 01/02/21 Unknown History donepeziL [Aricept] 10 mg PO QHS 01/02/21 01/02/21 Unknown History hydrALAZINE [Apresoline TAB] 100 mg PO Q8HR 01/02/21 01/02/21 Unknown History Active Meds: Active Medications Acetaminophen (Acetaminophen 325 Mg Tab) 650 mg PO Q4H PRN PRN Reason: Pain MILD(1-3)/Fever >100.5/TREVINO Acetaminophen (Acetaminophen 325 Mg Tab) 650 mg PO Q4H PRN PRN Reason: Pain, Mild (1-3) Aspirin (Aspirin 300 Mg Rect Supp) 300 mg [place] QDAY [facility] Atorvastatin Calcium (Atorvastatin 40 Mg Tab) 40 mg PO QHS [facility] Bisacodyl (Bisacodyl 10 Mg Rect Supp) 10 mg [place] QDAY PRN PRN Reason: Constipation Heparin Sodium (Porcine) (Heparin 5,000 Unit/1 Ml Vial) 5,000 unit SUB-Q Q8HR [facility] Hydralazine HCl (Hydralazine 20 Mg/1 Ml Inj) 10 mg IV ONCE ONE Stop: 01/02/21 01:41 Ceftriaxone Sodium (Rocephin/Ns 1 Gm/50 Ml) 1 gm in 50 mls @ 100 mls/hr IV Q24HR [facility]; Protocol Last Admin: 01/02/21 01:27 Dose: 100 mls/hr Documented by: Sodium Chloride (Nacl 0.9% 1000 Ml) 1,000 mls @ 125 mls/hr IV DIRECT [facility] Ceftriaxone Sodium (Rocephin/Ns 1 Gm/50 Ml) 1 gm in 50 mls @ 100 mls/hr IV Q24H [facility]; Protocol Magnesium Hydroxide (Magnesium Hydroxide (Mom) Oral Liqd Udc) 30 ml PO Q4H PRN PRN Reason: Constipation Magnesium Hydroxide (Magnesium Hydroxide (Mom) Oral Liqd Udc) 30 ml PO Q4H PRN PRN Reason: Constipation Metoclopramide HCl (Metoclopramide 10 Mg Tab) 10 mg PO Q6H PRN PRN Reason: Nausea And Vomiting Morphine Sulfate (Morphine 2 Mg/1 Ml Inj) 2 mg IV Q4H PRN PRN Reason: Pain, Moderate (4-6) Morphine Sulfate (Morphine 4 Mg/1 Ml Inj) 4 mg IV Q4H PRN PRN Reason: Pain , Severe (7-10) Ondansetron HCl (Ondansetron 4 Mg/2 Ml Inj) 4 mg IV Q8H PRN PRN Reason: Nausea And Vomiting Ondansetron HCl (Ondansetron 4 Mg/2 Ml Inj) 4 mg IV Q8H PRN PRN Reason: Nausea And Vomiting Promethazine HCl (Promethazine 25 Mg Rect Supp) 25 mg [place] Q6H PRN PRN Reason: Nausea And Vomiting Sodium Chloride (Sodium Chloride 0.9% 10 Ml Flush Syringe) 10 ml IV BID [facility] Sodium Chloride (Sodium Chloride 0.9% 10 Ml Flush Syringe) 10 ml IV PRN PRN PRN Reason: LINE FLUSH Sodium Chloride (Sodium Chloride 0.9% 10 Ml Flush Syringe) 10 ml INJ PRN PRN PRN Reason: LINE FLUSH Review of Systems ROS unobtainable: due to mental status Past History Past Medical History: hypertension, stroke Past Surgical History: Other (Not obtainable) Social history: other (Not obtainable) Family history: other (Not obtainable) Medications and Allergies Allergies Allergy/AdvReac Type Severity Reaction Status Date / Time Sulfa (Sulfonamide Allergy Unknown Verified 01/02/21 00:42 Antibiotics) Home Medications Medication Instructions Recorded Confirmed Last Taken Type Aspirin [Aspirin BABY CHEW TAB] 81 mg PO QDAY 01/02/21 01/02/21 Unknown History carvediloL [Coreg] 12.5 mg PO BID 01/02/21 01/02/21 Unknown History donepeziL [Aricept] 10 mg PO QHS 01/02/21 01/02/21 Unknown History hydrALAZINE [Apresoline TAB] 100 mg PO Q8HR 01/02/21 01/02/21 Unknown History Active Meds: Active Medications Acetaminophen (Acetaminophen 325 Mg Tab) 650 mg PO Q4H PRN PRN Reason: Pain, Mild (1-3) Aspirin (Aspirin 300 Mg Rect Supp) 300 mg [place] QDAY [facility] Last Admin: 01/04/21 11:21 Dose: 300 mg Documented by: Atorvastatin Calcium (Atorvastatin 40 Mg Tab) 40 mg PO QHS [facility] Last Admin: 01/04/21 00:00 Dose: 40 mg Documented by: Bisacodyl (Bisacodyl 10 Mg Rect Supp) 10 mg [place] QDAY PRN PRN Reason: Constipation Dexamethasone (Dexamethasone 4 Mg/Ml Vial) 6 mg IV Q24HR [facility] Stop: 01/12/21 10:01 Last Admin: 01/04/21 11:21 Dose: 6 mg Documented by: Heparin Sodium (Porcine) (Heparin 5,000 Unit/1 Ml Vial) 5,000 unit SUB-Q Q8HR [facility] Last Admin: 01/04/21 09:38 Dose: 5,000 unit Documented by: Ceftriaxone Sodium (Rocephin/Ns 1 Gm/50 Ml) 1 gm in 50 mls @ 100 mls/hr IV Q24HR [facility]; Protocol Stop: 01/05/21 10:29 Last Admin: 01/04/21 11:21 Dose: 100 mls/hr Documented by: REMDESIVIR 100 mg/ Sodium (Chloride) 250 mls @ 500 mls/hr IV Q24HR@2100 [facility] Stop: 01/07/21 21:29 Sodium Chloride (Nacl 0.9% 1000 Ml) 1,000 mls @ 100 mls/hr IV DIRECT [facility] Last Admin: 01/04/21 00:00 Dose: 100 mls/hr Documented by: Metoclopramide HCl (Metoclopramide 10 Mg Tab) 5 mg PO Q6H PRN PRN Reason: Nausea And Vomiting Morphine Sulfate (Morphine 2 Mg/1 Ml Inj) 2 mg IV Q4H PRN PRN Reason: Pain, Moderate (4-6) Morphine Sulfate (Morphine 4 Mg/1 Ml Inj) 4 mg IV Q4H PRN PRN Reason: Pain , Severe (7-10) Nifedipine (Nifedipine Xl 60 Mg Tab) 60 mg PO BID [facility] Last Admin: 01/04/21 00:00 Dose: 60 mg Documented by: Ondansetron HCl (Ondansetron 4 Mg/2 Ml Inj) 4 mg IV Q8H PRN PRN Reason: Nausea And Vomiting Promethazine HCl (Promethazine 25 Mg Rect Supp) 25 mg [place] Q6H PRN PRN Reason: Nausea And Vomiting Sodium Chloride (Sodium Chloride 0.9% 10 Ml Flush Syringe) 10 ml IV BID [facility] Last Admin: 01/03/21 13:52 Dose: Not Given Documented by: Sodium Chloride (Sodium Chloride 0.9% 10 Ml Flush Syringe) 10 ml IV PRN PRN PRN Reason: LINE FLUSH Sodium Chloride (Sodium Chloride 0.9% 50 Ml Ivpb) 50 ml IV Q24HR@2100 [facility] Stop: 01/07/21 21:01 Last Admin: 01/03/21 13:53 Dose: Not Given Documented by: Physical Examination - Vital Signs Vital Signs: Vital Signs Temp Pulse Resp BP Pulse Ox 98.6 F 120 H 20 176/124 93 01/01/21 23:15 01/01/21 23:15 01/01/21 23:15 01/01/21 23:15 01/01/21 23:15 - Constitutional General appearance: comfortable - EENT EENT: Present: PERRL, mucous membranes moist - Respiratory Respiratory: Present: lungs clear, rhonchi - Cardiovascular Cardiovascular: Present: regular rate, normal S1, normal S2 Extremities: Present: no peripheral edema bilatateraly, no clubbing, cyanosis - Gastrointestinal Gastrointestinal: Present: normoactive bowel sounds - Integumentary Integumentary: Present: normal - Neurologic Cranial nerve examination: PERRL, EOMI, intact Speech examination: other (she is able to says few words , respond to verbal command some what lathergic) Detailed motor examination: other (difficult to assess weakness due to lathergy she move both lwers and to lesser extent right side . move left upper more .) Results - Laboratory Findings CBC and BMP: 01/02/21 05:37 01/04/21 08:24 Abnormal Lab Findings: Abnormal Labs 01/01/21 01/01/21 01/01/21 23:33 23:33 23:33 RDW 18.6 H Lymph % (Auto) 12.0 L Dubois % (Auto) 8.7 H Lymph # (Auto) 0.7 L Seg Neutrophils % 79.1 H D-Dimer 1378.45 H Heparin Anti-Xa Level Sodium 147 H Chloride 111.1 H Carbon Dioxide 14 L BUN 37 H Creatinine 2.3 H Glucose 184 H POC Glucose Calcium Ferritin AST Lactate Dehydrogenase Troponin T 0.043 H C-Reactive Protein Total Protein Albumin 3.4 L Triglycerides 284 H HDL Cholesterol 20 L Urine WBC (Auto) Coronavirus (PCR) 01/01/21 01/01/21 01/02/21 23:33 23:33 00:15 RDW Lymph % (Auto) Dubois % (Auto) Lymph # (Auto) Seg Neutrophils % D-Dimer Heparin Anti-Xa Level Sodium Chloride Carbon Dioxide BUN Creatinine Glucose 186 H POC Glucose Calcium Ferritin 320.1 H AST Lactate Dehydrogenase 276 H Troponin T C-Reactive Protein 2.50 H Total Protein Albumin Triglycerides HDL Cholesterol Urine WBC (Auto) 88.0 H Coronavirus (PCR) 01/02/21 01/02/21 01/02/21 02:01 05:37 05:37 RDW Lymph % (Auto) Dubois % (Auto) Lymph # (Auto) Seg Neutrophils % D-Dimer 1234.80 H Heparin Anti-Xa Level Sodium Chloride Carbon Dioxide BUN Creatinine Glucose POC Glucose Calcium Ferritin AST Lactate Dehydrogenase 282 H Troponin T 0.038 H C-Reactive Protein 2.60 H Total Protein Albumin Triglycerides HDL Cholesterol Urine WBC (Auto) Coronavirus (PCR) 01/02/21 01/02/21 01/02/21 05:37 13:09 19:14 RDW Lymph % (Auto) Dubois % (Auto) Lymph # (Auto) Seg Neutrophils % D-Dimer Heparin Anti-Xa Level 1.87 H 1.32 H Sodium Chloride Carbon Dioxide BUN Creatinine Glucose POC Glucose Calcium Ferritin 317.0 H AST Lactate Dehydrogenase Troponin T C-Reactive Protein Total Protein Albumin Triglycerides HDL Cholesterol Urine WBC (Auto) Coronavirus (PCR) 01/02/21 01/03/21 01/03/21 Unknown 04:17 12:52 RDW Lymph % (Auto) [place] % (Auto) Lymph # (Auto) Seg Neutrophils % D-Dimer Heparin Anti-Xa Level Sodium Chloride Carbon Dioxide 20 L BUN 23 H Creatinine 1.5 H Glucose 137 H POC Glucose 118 H Calcium 7.1 L D Ferritin AST Lactate Dehydrogenase Troponin T C-Reactive Protein Total Protein Albumin Triglycerides HDL Cholesterol Urine WBC (Auto) Coronavirus (PCR) Positive A 01/03/21 01/04/21 21:20 08:24 RDW Lymph % (Auto) [place] % (Auto) Lymph # (Auto) Seg Neutrophils % D-Dimer Heparin Anti-Xa Level Sodium 146 H D Chloride Carbon Dioxide 21 L BUN 29 H 36 H Creatinine 2.2 H 2.5 H Glucose 137 H 142 H POC Glucose Calcium 7.6 L 6.9 L Ferritin AST 48 H Lactate Dehydrogenase Troponin T C-Reactive Protein Total Protein 6.2 L Albumin 2.9 L 2.4 L Triglycerides HDL Cholesterol Urine WBC (Auto) Coronavirus (PCR) Assessment and Plan Assessment and Plan # Encephalopathy -she is with underlying COVID-19 -Possibility of CVA can not be excluded -elevated D-Dimer#1234 -started on decdron and remedevir # CVA (cerebral vascular accident) -can not be excluded -she is with more noticed right upper weakness -detail exam is difficult due to encephalopathy -MRI brain is pending -CT brain ? multi BG infarct -she is on ASA and Lipitor -LDL is pending -echo with Ef#50-60% -Pt/ST evaluate # FAVIOLA (acute kidney injury) -Patient placed on IV fluid normal saline. We will monitor BUN and creatinine. -Baseline creatinine unknown. -BUN/Cr#36/2.5 # Hypoxia -Patient was mildly hypoxic upon arrival in the emergency room. -Placed on oxygen by nasal cannula. We will keep O2 saturation greater or equal to 92%. -In view of the elevated D-dimer, we will schedule for VQ scan and venous Doppler of the lower extremities. # Tachycardia -VQ scan is negative -heparin drip. is off # UTI (urinary tract infection) -Patient placed on empiric IV antibiotics. #Pneumonia -Patient placed on empiric IV antibiotics. -COVID-19 is positive #Elevated troponin There has been no ischemic EKG changes. Patient denies chest pain We will trend cardiac enzymes. # DVT prophylaxis -Patient on SQ heparin. # Full code status -Patient is a full code. PLAN 1- MRI brain,US carotid and brain MRA 2- Maintain ASA and Lipitor 3-PT/ST evaluate 4- SQ heparine for now 5- Treat underlying infection and renal insuff. 6- Hydration will follow
[2021-01-04] MEDS: NIFEdipine XL 60 MG TAB PO SCH ×3 (11:43→21:57)
--- NOTE | 2021-01-04 13:21 | Progress Note ---
Assessment and Plan Cultures: Blood culture 01/01/2021 pending SARS CoV2 PCR positive Assessment: 55-year-old female with history of hypertension, previous stroke, admitted on 01/01/2021 secondary to altered mental status for 4 days per family members: #Severe COVID pneumonia +/- bacterial pneumonia: CXR with left-sided pneumonia. Infllammatory markers elevated. D-dimer 2078. CRP 2.5. Ferritin 320. Procalcitonin elevated at 0.7 in the setting of FAVIOLA. VQ scan low probability for PE. #Acute hypoxemic respiratory failure: To 70%, currently on 4 L nasal cannula. #UTI: Urinalysis consistent with UTI. #FAVIOLA: Creatinine improving. From COVID #Encephalopathy: History of CVA ?acute CVA +/- COVID. CT with left basal ganglia density. #Hypertension uncontrolled. Recommendations: -Continue dexamethasone 6 mg IV/PO daily for 10 days -Remdesivir for 5 days (CrCl>30 mg/mL) -Monitor inflammatory markers - ferritin, Ddimer, CRP, LDH -Monitor liver function test on Remdesivir -Continue anticoagulation per System Protocol -Prone positioning as possible -Continue ceftriaxone for 5 days and azithromycin for [address] MD [facility] O: [phone] F: [phone] Subjective Date of service: 01/04/21 Principal diagnosis: faviola Interval history: Afebrile, no acute change. Currently on 10 L nasal cannula. Objective - Exam Narrative Exam: Physical exam deferred to reduce risk of transmission of COVID-19. Please refer to primary team's note. - Constitutional Vitals: Vital Signs Temp Pulse Resp BP Pulse Ox 97.7 F 107 H 16 165/122 93 01/04/21 09:40 01/04/21 09:40 01/04/21 09:40 01/04/21 09:40 01/04/21 12:30 Temperature -Last 24 Hours Temperature 97.7 F - Labs CBC & Chem 7: 01/02/21 05:37 01/04/21 08:24 Labs: Abnormal lab results 01/03/21 01/04/21 01/04/21 Range/Units 21:20 08:24 12:08 Sodium 146 H D (137-145) mmol/L Carbon Dioxide 21 L (22-30) mmol/L BUN 29 H 36 H (7-17) mg/dL Creatinine 2.2 H 2.5 H (0.6-1.2) mg/dL Glucose 137 H 142 H (65-100) mg/dL POC Glucose 115 H (70-105) mg/dL Calcium 7.6 L 6.9 L (8.4-10.2) mg/dL AST 48 H (5-40) units/L Total Protein 6.2 L (6.3-8.2) g/dL Albumin 2.9 L 2.4 L (3.9-5) g/dL
--- NOTE | 2021-01-04 16:13 | Vascular Lab Report ---
DUPLEX DOPPLER ULTRASOUND CAROTID, BILATERAL INDICATION / CLINICAL INFORMATION: stroke. COMPARISON: None available. FINDINGS: RIGHT CAROTID: No significant atherosclerotic plaque. - PLAQUE ESTIMATE (%): < 50% - CCA velocity: 57 cm/sec. - ICA peak systolic velocity: 93 cm/sec. - ICA/CCA PSV Ratio: Less than 2. Right Vertebral Artery: Antegrade flow. LEFT CAROTID: Small amount of calcified plaque within the bulb. - PLAQUE ESTIMATE (%): < 50% - CCA velocity: 57 cm/sec. - ICA peak systolic velocity: 56 cm/sec. - ICA/CCA PSV Ratio: Less than 2. Left Vertebral Artery: Antegrade flow. IMPRESSION: 1. Right Internal Carotid Artery: Normal. No stenosis. 2. Left Internal Carotid Artery: Less than 50% diameter stenosis. Velocity criteria are extrapolated from diameter data as defined by the Society of Radiologists in [facility] Consensus Conference, Radiology 2003; 229;340-346. NO STENOSIS (NORMAL) - Plaque = none; ICA PSV < 125 cm/sec; ICA/CCA PSV Ratio < 2.0 <50% STENOSIS - Plaque < 50%; ICA PSV < 125 cm/sec; ICA/CCA PSV Ratio < 2.0 50-69% STENOSIS - Plaque > 50%; ICA PSV = 125-230 cm/sec; ICA/CCA PSV Ratio = 2.0-4.0 >70% BUT <100% STENOSIS - Plaque > 50%; ICA PSV > 230 cm/sec; ICA/CCA PSV Ratio > 4.0 NEAR OCCLUSION - Plaque = visible lumen; ICA PSV = high/low/none; ICA/CCA PSV Ratio = variable TOTAL OCCLUSION - Plaque = no lumen; ICA PSV = none; ICA/CCA PSV Ratio = N/A Scribed by: Radha Maher RDMS, RVT Scribed: 01/04/2021 1:26 PM I have reviewed the images, agree with this report, and edited this report as needed. Signer Name: Prasanna Campos MD Signed: 01/04/2021 4:08 PM Workstation Name: [id number]
[2021-01-05 00:19] LABS: Basophils % (Auto) 0.1 % (0.0-1.8); Hemoglobin 6.6 gm/dl (10.1-14.3); Lymphocytes # (Auto) 0.9 K/mm3 (1.2-5.4); Lymphocytes % (Auto) 6.8 % (13.4-35.0); Mean Corpuscular HGB Conc 33 % (30-34); Mean Corpuscular Volume 87 fl (79-97); Monocytes # (Auto) 0.9 K/mm3 (0.0-0.8); Monocytes % (Auto) 7.1 % (0.0-7.3); Platelet Count 252 K/mm3 (140-440); Red Blood Count 2.31 M/mm3 (3.65-5.03)
[2021-01-05] MEDS: REMDESIVIR 100 MG in SODIUM CHLORIDE 0.9% 250ML 250 ML IV SCH ×2 (00:19→21:47)
[2021-01-05] MEDS: SODIUM CHLORIDE 0.9% 50 ML IVPB IV SCH ×2 (04:01→21:48)
[2021-01-05] MEDS: HEPARIN 5,000 UNIT/1 ML VIAL SUB-Q SCH ×2 (06:58→14:20)
[2021-01-05] MEDS: SODIUM CHLORIDE 0.9% 1000 ML 1,000 ML IV SCH (07:02)
[2021-01-05 07:25] LABS: Albumin 2.6 g/dL (3.9-5); Calcium 6.7 mg/dL (8.4-10.2)
[2021-01-05] MEDS: NIFEdipine XL 60 MG TAB PO SCH ×2 (09:40→21:48)
[2021-01-05] MEDS: cefTRIAXone/NS 1 GM/50 ML 1 GM/50 ML BAG IV SCH (09:41)
[2021-01-05] MEDS: dexAMETHasone 4 MG/ML VIAL IV SCH (09:41)
[2021-01-05] MEDS: ASPIRIN 300 MG RECT SUPP PR SCH (09:42)
--- NOTE | 2021-01-05 10:59 | Electrocardiograph Report ---
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
--- NOTE | 2021-01-05 12:37 | Progress Note ---
Assessment and Plan Impression: * faviola * sepsis * acute hypoxic resp failure * ams * metabolic acidosis * Bilateral PNA * Covid PNA * UTI with sepsis * anemia Plan: * no emergent indication for DIRECTOR OF PRIMARY CARE at this time, however concerning trend * cr has worsened today, 1.5->2.2->2.5->2.9, was initially improving * note hemoglobin 6.6-> previously 13, r/o bleed, transfuse PRBCs prn, may be contributing to FAVIOLA as well * FAVIOLA likely multifactorial, hypoperfusion due to sepsis, ATN with COVID * keep MAP>65, BP now stable, back on nifedipine * abx per primary team, note initiation of remdesivir * continue IVF for renal perfusion as tolerated, currently on NS * calcium noted, replete prn * strict i/os and daily lytes * avoid nephrotoxins Subjective Date of service: 01/05/21 Principal diagnosis: faviola Interval history: labs and chart reviewed events noted remains minimially interactive, oriented today Objective - Exam Narrative Exam: primary team exam noted, exam deferred for preservation of PPE - Vital Signs Vital signs: Vital Signs - 12hr 01/05/21 01/05/21 01/05/21 02:25 05:49 05:51 Temperature 98.5 F Pulse Rate 108 H Respiratory 20 Rate Blood Pressure 123/67 O2 Sat by Pulse 98 83 L 90 Oximetry 01/05/21 08:00 Temperature Pulse Rate Respiratory Rate Blood Pressure O2 Sat by Pulse 98 Oximetry - Lab 01/04/21 23:23 01/05/21 05:45 Most recent lab results Calcium 6.7 mg/dL (8.4-10.2) L 01/05/21 05:45 Medications & Allergies - Medications Allergies/Adverse Reactions: Allergies Sulfa (Sulfonamide Antibiotics) Allergy (Verified 01/02/21 00:42) Unknown Home Medications: Home Medications Medication Instructions Recorded Confirmed Last Taken Type Aspirin [Aspirin BABY CHEW TAB] 81 mg PO QDAY 01/02/21 01/02/21 Unknown History carvediloL [Coreg] 12.5 mg PO BID 01/02/21 01/02/21 Unknown History donepeziL [Aricept] 10 mg PO QHS 01/02/21 01/02/21 Unknown History hydrALAZINE [Apresoline TAB] 100 mg PO Q8HR 01/02/21 01/02/21 Unknown History Active Medications: Generic Name Dose Route Start Last Admin Trade Name Freq PRN Reason Stop Dose Admin Acetaminophen 650 mg 01/02/21 01:40 Acetaminophen 325 Mg Tab PO Q4H PRN Pain, Mild (1-3) Aspirin 300 mg 01/02/21 10:00 01/05/21 09:42 Aspirin 300 Mg Rect Supp DC 300 mg QDAY BELTRAN Administration Atorvastatin Calcium 40 mg 01/02/21 22:00 01/04/21 21:44 Atorvastatin 40 Mg Tab PO 40 mg QHS BELTRAN Administration Bisacodyl 10 mg 01/02/21 01:40 Bisacodyl 10 Mg Rect Supp DC QDAY PRN Constipation Dexamethasone 6 mg 01/03/21 10:00 01/05/21 09:41 Dexamethasone 4 Mg/Ml Vial IV 01/12/21 10:01 6 mg Q24HR BELTRAN Administration Heparin Sodium (Porcine) 5,000 unit 01/03/21 14:00 01/05/21 06:58 Heparin 5,000 Unit/1 Ml Vial SUB-Q 5,000 unit Q8HR BELTRAN Administration REMDESIVIR 100 mg/ Sodium 250 mls @ 500 mls/hr 01/04/21 21:00 01/05/21 00:19 Chloride IV 01/07/21 21:29 500 mls/hr Q24HR@2100 BELTRAN Administration Sodium Chloride 1,000 mls @ 100 mls/hr 01/03/21 12:00 01/05/21 07:02 Nacl 0.9% 1000 Ml IV 100 mls/hr DIRECT BELTRAN Administration Metoclopramide HCl 5 mg 01/02/21 01:40 Metoclopramide 10 Mg Tab PO Q6H PRN Nausea And Vomiting Morphine Sulfate 2 mg 01/02/21 01:40 Morphine 2 Mg/1 Ml Inj IV Q4H PRN Pain, Moderate (4-6) Morphine Sulfate 4 mg 01/02/21 01:40 01/04/21 14:56 Morphine 4 Mg/1 Ml Inj IV 4 mg Q4H PRN Administration Pain , Severe (7-10) Nifedipine 60 mg 01/02/21 13:00 01/05/21 09:40 Nifedipine Xl 60 Mg Tab PO 60 mg BID BETLRAN Administration Ondansetron HCl 4 mg 01/02/21 01:40 Ondansetron 4 Mg/2 Ml Inj IV Q8H PRN Nausea And Vomiting Promethazine HCl 25 mg 01/02/21 01:40 Promethazine 25 Mg Rect Supp DC Q6H PRN Nausea And Vomiting Sodium Chloride 10 ml 01/02/21 10:00 01/05/21 09:40 Sodium Chloride 0.9% 10 Ml Flush Syringe IV 10 ml BID BELTRAN Administration Sodium Chloride 10 ml 01/02/21 01:40 Sodium Chloride 0.9% 10 Ml Flush Syringe IV PRN PRN LINE FLUSH Sodium Chloride 50 ml 01/03/21 13:30 01/05/21 04:01 Sodium Chloride 0.9% 50 Ml Ivpb IV 01/07/21 21:01 50 ml Q24HR@2100 BELTRAN Administration
--- NOTE | 2021-01-05 12:52 | Progress Note ---
Assessment and Plan Assessment and plan: CVA, likely. CT of the head with left basal ganglia changes. For MRI Sepsis. Present on admission. Patient meets criteria given the tachycardia, tachypnea and diagnosis of UTI/pneumonia. Bilateral pneumonia. COVID-19 pneumonia. Acute kidney injury. Etiology secondary to ATN/sepsis. UTI. Toxic metabolic encephalopathy. 01/02/2021. Altered mentation is secondary to toxic metabolic encephalopathy from sepsis/pneumonia/UTI +/-CVA. CT scan of the head reveals several findings including: Suspicious hypodensity within the left basal ganglia which could be secondary to acute infarct. MRI recommended for further evaluation. There are several small lacunar infarcts identified within the right basal ganglia. Neurology consultation when available. Patient will be continued on IV antibiotics. Patient currently undergoing VQ scan for elevated D-dimer to rule out PE. Follow-up Covid PCR. Total visit time equals 35 minutes with greater than 50% spent on coordination of care and counseling. 01/03/2021. Await MRI brain. Echocardiogram reveals left ventricular size normal with normal systolic function. EF 50 to 60%. Mild diastolic dysfunction. No PFO. Creatinine has improved to 1.5. Nephrology following. Covid PCR positive on 01/02. Continue IV antibiotics. Follow-up blood cultures. Check procalcitonin. Continue dexamethasone. VQ scan is negative for PE. Therefore, we will discontinue IV heparin drip. 01/04/2021. Continue dexamethasone 6 mg IV for 10 days. ID initiated remdesivir yesterday. Continue to trend inflammatory markers of ferritin, D-dimer, CRP and LDH. Initial markers elevated with D-dimer 2078. CRP 2.5. Ferritin 320. Continue DVT prophylactic anticoagulation. Continue ceftriaxone and azithromycin given the elevated procalcitonin. Continue to monitor creatinine, strict i/os and daily lytes, avoid nephrotoxins. Await MRI brain to further assess abnormal CT scan and CVA. Neurology consultation pending 01/05/21 patient with Covid-19 pneumonia. Hgb 5.5 today, was 6.6 yesterday and 13.6 about 3 days ago. No obvious bleeding. Obtain stat PT,INR,Iron. stool occult blood. Transfuse 3 Units PRBC. NPO. Protonix drip. I consulted GI and dis cussed with Dr. Grijalva. Obtain CT Abd/pelvis to r/o hematoma. I also discussed with Dr. Zelaya and he agrees to hold Aspirin because of sudden large Hgb drop. Patient cannot give history For MRI Brain to r/o stroke History Interval history: patient with Covid -19 pneumonia, Now has sudden drop in Hgb She cannot give history Hospitalist Physical - Physical exam Narrative exam: Gen: Not in acute distress, lying in bed, On Oxygen by NC HEENT: Normocephalic, atraumatic Lungs: rales left lung, no wheeze Heart: S1 and S2 reg, no murmurs, rubs or gallop Abd:soft, non-tender, non distended, normal bowel sounds Ext: No edema, clubbing or cyanosis Neuro: Awake, alert,dysphasia - Constitutional Vitals: Temp Pulse Resp BP Pulse Ox 98.5 F 108 H 20 123/67 98 01/05/21 05:49 01/05/21 05:49 01/05/21 05:49 01/05/21 05:49 01/05/21 08:00 General appearance: Present: no acute distress, well-nourished, other (Dry oral mucosa) HEART Score - HEART Score Troponin: Troponin T 0.038 ng/mL (0.00-0.029) H 01/02/21 02:01 Results - Labs CBC & Chem 7: 01/05/21 12:25 01/05/21 05:45 Labs: Laboratory Last Values WBC 12.8 K/mm3 (4.5-11.0) H 01/04/21 23:23 RBC 2.31 M/mm3 (3.65-5.03) L 01/04/21 23:23 Hgb 6.6 gm/dl (10.1-14.3) L D 01/04/21 23:23 Hct 20.0 % (30.3-42.9) L D 01/04/21 23:23 MCV 87 fl (79-97) 01/04/21 23:23 MCH 28 pg (28-32) 01/04/21 23:23 MCHC 33 % (30-34) 01/04/21 23:23 RDW 18.0 % (13.2-15.2) H 01/04/21 23:23 Plt Count 252 K/mm3 (140-440) 01/04/21 23:23 Lymph % (Auto) 6.8 % (13.4-35.0) L 01/04/21 23:23 [place] % (Auto) 7.1 % (0.0-7.3) 01/04/21 23:23 Eos % (Auto) 0.0 % (0.0-4.3) 01/04/21 23:23 Baso % (Auto) 0.1 % (0.0-1.8) 01/04/21 23:23 Lymph # (Auto) 0.9 K/mm3 (1.2-5.4) L 01/04/21 23:23 [place] # (Auto) 0.9 K/mm3 (0.0-0.8) H 01/04/21 23:23 Eos # (Auto) 0.0 K/mm3 (0.0-0.4) 01/04/21 23:23 Baso # (Auto) 0.0 K/mm3 (0.0-0.1) 01/04/21 23:23 Seg Neutrophils % 86.0 % (40.0-70.0) H 01/04/21 23:23 Seg Neutrophils # 11.0 K/mm3 (1.8-7.7) H 01/04/21 23:23 PT 14.2 Sec. (12.2-14.9) 01/02/21 05:37 INR 1.05 (0.87-1.13) 01/02/21 05:37 APTT 33.1 Sec. (24.2-36.6) 01/02/21 05:37 D-Dimer 1234.80 ng/mlDDU (0-234) H 01/02/21 05:37 Heparin Anti-Xa Level 1.32 U.I./ml (0.3-0.7) H 01/02/21 19:14 Sodium 148 mmol/L (137-145) H 01/05/21 05:45 Potassium 4.1 mmol/L (3.6-5.0) 01/05/21 05:45 Chloride 110.4 mmol/L (98-107) H 01/05/21 05:45 Carbon Dioxide 23 mmol/L (22-30) 01/05/21 05:45 Anion Gap 19 mmol/L 01/05/21 05:45 BUN 47 mg/dL (7-17) H 01/05/21 05:45 Creatinine 2.9 mg/dL (0.6-1.2) H 01/05/21 05:45 Estimated GFR 20 ml/min 01/05/21 05:45 BUN/Creatinine Ratio 16 % 01/05/21 05:45 Glucose 125 mg/dL (65-100) H 01/05/21 05:45 POC Glucose 214 mg/dL (70-105) H 01/04/21 17:25 Lactic Acid 1.80 mmol/L (0.7-2.0) 01/01/21 23:33 Calcium 6.7 mg/dL (8.4-10.2) L 01/05/21 05:45 Ferritin 317.0 ng/mL (10.0-200.0) H 01/02/21 05:37 Total Bilirubin 0.30 mg/dL (0.1-1.2) 01/05/21 05:45 AST 30 units/L (5-40) 01/05/21 05:45 ALT 12 units/L (7-56) 01/05/21 05:45 Alkaline Phosphatase 46 units/L (35-129) 01/05/21 05:45 Lactate Dehydrogenase 282 units/L (91-180) H 01/02/21 05:37 Troponin T 0.038 ng/mL (0.00-0.029) H 01/02/21 02:01 C-Reactive Protein 2.60 mg/dL (0.00-1.30) H 01/02/21 05:37 NT-Pro-B Natriuret Pep 398.4 pg/mL (0-900) 01/01/21 23:33 Total Protein 5.8 g/dL (6.3-8.2) L 01/05/21 05:45 Albumin 2.6 g/dL (3.9-5) L 01/05/21 05:45 Albumin/Globulin Ratio 0.8 % 01/05/21 05:45 Triglycerides 284 mg/dL (2-149) H 01/01/21 23:33 Cholesterol 151 mg/dL (50-199) 01/01/21 23:33 LDL Cholesterol Direct 65 mg/dL (50-130) 01/01/21 23:33 HDL Cholesterol 20 mg/dL (40-59) L 01/01/21 23:33 Cholesterol/HDL Ratio 7.55 % 01/01/21 23:33 Procalcitonin 0.71 ng/mL (<0.15) 01/02/21 05:37 Urine Color Izzy (Yellow) 01/02/21 00:15 Urine Turbidity Cloudy (Clear) 01/02/21 00:15 Urine pH 6.0 (5.0-7.0) 01/02/21 00:15 Ur Specific [place] 1.016 (1.003-1.030) 01/02/21 00:15 Urine Protein 100 mg/dl mg/dL (Negative) 01/02/21 00:15 Urine Glucose (UA) Neg mg/dL (Negative) 01/02/21 00:15 Urine Ketones Neg mg/dL (Negative) 01/02/21 00:15 Urine Blood Lg (Negative) 01/02/21 00:15 Urine Nitrite Neg (Negative) 01/02/21 00:15 Urine Bilirubin Neg (Negative) 01/02/21 00:15 Urine Urobilinogen 4.0 mg/dL (<2.0) 01/02/21 00:15 Ur Leukocyte Esterase Mod (Negative) 01/02/21 00:15 Urine WBC (Auto) 88.0 /HPF (0.0-6.0) H 01/02/21 00:15 Urine RBC (Auto) 56.0 /HPF (0.0-6.0) 01/02/21 00:15 U Epithel Cells (Auto) 2.0 /HPF (0-13.0) 01/02/21 00:15 Urine WBC Clumps 1+ /HPF 01/02/21 00:15 Urine Mucus Few /HPF 01/02/21 00:15 Urine Yeast (Budding) Few /HPF 01/02/21 00:15 Coronavirus (PCR) Positive (Negative) A 01/02/21 Unknown Microbiology: Microbiology 01/01/21 23:33 Peripheral/Venous Blood Culture - Preliminary NO GROWTH AFTER 72 HOURS 01/01/21 23:23 Peripheral/Venous Blood Culture - Preliminary NO GROWTH AFTER 72 HOURS Marie/IV: Voiding Method Incontinent Active Medications - Current Medications Current Medications: Generic Name Dose Route Start Last Admin Trade Name Freq PRN Reason Stop Dose Admin Acetaminophen 650 mg 01/02/21 01:40 Acetaminophen 325 Mg Tab PO Q4H PRN Pain, Mild (1-3) Aspirin 300 mg 01/02/21 10:00 01/05/21 09:42 Aspirin 300 Mg Rect Supp OR 300 mg QDAY BELTRAN Administration Atorvastatin Calcium 40 mg 01/02/21 22:00 01/04/21 21:44 Atorvastatin 40 Mg Tab PO 40 mg QHS BELTRAN Administration Bisacodyl 10 mg 01/02/21 01:40 Bisacodyl 10 Mg Rect Supp OR QDAY PRN Constipation Dexamethasone 6 mg 01/03/21 10:00 01/05/21 09:41 Dexamethasone 4 Mg/Ml Vial IV 01/12/21 10:01 6 mg Q24HR BELTRAN Administration Heparin Sodium (Porcine) 5,000 unit 01/03/21 14:00 01/05/21 06:58 Heparin 5,000 Unit/1 Ml Vial SUB-Q 5,000 unit Q8HR BELTRAN Administration REMDESIVIR 100 mg/ Sodium 250 mls @ 500 mls/hr 01/04/21 21:00 01/05/21 00:19 Chloride IV 01/07/21 21:29 500 mls/hr Q24HR@2100 BELTRAN Administration Sodium Chloride 1,000 mls @ 100 mls/hr 01/03/21 12:00 01/05/21 07:02 Nacl 0.9% 1000 Ml IV 100 mls/hr DIRECT BELTRAN Administration Metoclopramide HCl 5 mg 01/02/21 01:40 Metoclopramide 10 Mg Tab PO Q6H PRN Nausea And Vomiting Morphine Sulfate 2 mg 01/02/21 01:40 Morphine 2 Mg/1 Ml Inj IV Q4H PRN Pain, Moderate (4-6) Morphine Sulfate 4 mg 01/02/21 01:40 01/04/21 14:56 Morphine 4 Mg/1 Ml Inj IV 4 mg Q4H PRN Administration Pain , Severe (7-10) Nifedipine 60 mg 01/02/21 13:00 01/05/21 09:40 Nifedipine Xl 60 Mg Tab PO 60 mg BID BELTRAN Administration Ondansetron HCl 4 mg 01/02/21 01:40 Ondansetron 4 Mg/2 Ml Inj IV Q8H PRN Nausea And Vomiting Promethazine HCl 25 mg 01/02/21 01:40 Promethazine 25 Mg Rect Supp OR Q6H PRN Nausea And Vomiting Sodium Chloride 10 ml 01/02/21 10:00 01/05/21 09:40 Sodium Chloride 0.9% 10 Ml Flush Syringe IV 10 ml BID BELTRAN Administration Sodium Chloride 10 ml 01/02/21 01:40 Sodium Chloride 0.9% 10 Ml Flush Syringe IV PRN PRN LINE FLUSH Sodium Chloride 50 ml 01/03/21 13:30 01/05/21 04:01 Sodium Chloride 0.9% 50 Ml Ivpb IV 01/07/21 21:01 50 ml Q24HR@2100 BELTRAN Administration Nutrition/Malnutrition Assess - Dietary Evaluation Nutrition/Malnutrition Findings: Nutrition Notes Start: 01/02/21 10:21 Freq: Status: Active Protocol: Document 01/02/21 10:21 GB (Rec: 01/02/21 10:29 GB [id number]) Nutrition Notes Need for Assessment generated from: MD Order Initial or Follow up Assessment Current Diagnosis Hypertension,Stroke Other Pertinent Diagnosis Consult for diet education Current Diet NPO x1 Labs/Tests 01/01: Na 147, BUN 37, creatinine 2.3, Tg 284 01/02: ferritin 317 (slight improvement) Pertinent Medications azithromycin Height 5 ft 1 in Weight 63.503 kg [place] Body Weight (kg) 47.72 BMI 26.4 Weight change and time frame No reported weight change. Weight Status Overweight Subjective/Other Information Pt in ER holding for admit to room. Education to be reviewed following room admit. Percent of energy/protein needs met: 0% at this time with NPOx1 day Burn Absent Trauma Absent GI Symptoms None Food Allergy No Skin Integrity/Comment No complications reported Current % PO Other Minimum of two criteria No #1 Nutrition Diagnosis Food and nutrition-related knowledge deficit Comments: admitted for UTI/AMS Etiology consult for diet education As Evidenced by Signs and Symptoms education relating to history of HTN/stroke. Is patient on ventilator? No Is Patient Ambulatory and/or Out of Bed No REE-([place]-confined to bed) 1393.596 Kcal/Kg value to use for calculation 22 Approximate Energy Requirements Using 1397 kcal/Kg Calculation Used for Recommendations Kcal/kg Additional Notes Protein 1-1.2 g/kg @ 64k- 77g Fluids: 1 ml/kcal or per MD Nutrition Intervention Change Diet Order: NPO x 1, once medically feasible advance diet to low sodium/heart healthy Nutrition Support: n/a Add Supplement/Snack (indicate name/kcal n/a /protein ) Goal #1 Education to be provided to pt post admittance to room. Goal #2 Diet advanced to low sodium/ heart healthy Anticipated Discharge Needs: no specialized nutrition instructions at this time Follow-Up By: 01/06/21 Additional Comments f/u: provide HTN/stroke nutrition therapy education
[2021-01-05 12:54] LABS: Mean Corpuscular HGB Conc 32 % (30-34); Mean Corpuscular Volume 87 fl (79-97); Platelet Count 343 K/mm3 (140-440); Red Blood Count 1.95 M/mm3 (3.65-5.03); Red Cell Distribution Width 17.7 % (13.2-15.2)
[2021-01-05 12:56] LABS: Hematocrit 16.9 % (30.3-42.9); Hemoglobin 5.5 gm/dl (10.1-14.3)
[2021-01-05] MEDS ORDERED: SODIUM CHLORIDE 0.9% 500 ML 500 ML IV ONE (12:58)
--- NOTE | 2021-01-05 13:04 | Progress Note ---
Assessment and Plan Cultures: Blood culture 01/01/2021 pending SARS CoV2 PCR positive Assessment: 55-year-old female with history of hypertension, previous stroke, admitted on 01/01/2021 secondary to altered mental status for 4 days per family members: #Severe COVID pneumonia +/- bacterial pneumonia: CXR with left-sided pneumonia. Infllammatory markers elevated. D-dimer 2078. CRP 2.5. Ferritin 320. Procalcitonin elevated at 0.7 in the setting of FAVIOLA. VQ scan low probability for PE. #Acute hypoxemic respiratory failure: To 70%, currently on 5 L nasal cannula. #UTI: Urinalysis consistent with UTI. #FAVIOLA: Creatinine improving. From COVID #Encephalopathy: History of CVA ?acute CVA +/- COVID. CT with left basal ganglia density. #Hypertension uncontrolled. Recommendations: -Continue dexamethasone 6 mg IV/PO daily for 10 days -Remdesivir for 5 days (CrCl>30 mg/mL) -Monitor inflammatory markers - ferritin, Ddimer, CRP, LDH -Monitor liver function test on Remdesivir -Continue anticoagulation per System Protocol -Prone positioning as possible -Continue ceftriaxone for 5 days and azithromycin for 3 days Mara tS MD [facility] O: [phone] F: [phone] Subjective Date of service: 01/05/21 Principal diagnosis: faviola Interval history: Afebrile, white count increased today to 23.4. Currently on 5 L Objective - Exam Narrative Exam: Physical exam deferred to reduce risk of transmission of COVID-19. Please refer to primary team's note. - Constitutional Vitals: Vital Signs Temp Pulse Resp BP Pulse Ox 98.9 F 119 H 24 111/67 88 01/05/21 11:44 01/05/21 11:44 01/05/21 11:44 01/05/21 11:44 01/05/21 11:44 Temperature -Last 24 Hours Temperature 98.9 F Temperature 98.5 F Temperature 98.7 F Temperature 99.1 F - Labs CBC & Chem 7: 01/05/21 12:25 01/05/21 05:45 Labs: Abnormal lab results 01/04/21 01/04/21 01/05/21 Range/Units 17:25 23:23 05:45 WBC 12.8 H (4.5-11.0) K/mm3 RBC 2.31 L (3.65-5.03) M/mm3 Hgb 6.6 L D (10.1-14.3) gm/dl Hct 20.0 L D (30.3-42.9) % RDW 18.0 H (13.2-15.2) % Lymph % (Auto) 6.8 L (13.4-35.0) % Lymph # (Auto) 0.9 L (1.2-5.4) K/mm3 [place] # (Auto) 0.9 H (0.0-0.8) K/mm3 Seg Neutrophils % 86.0 H (40.0-70.0) % Seg Neutrophils # 11.0 H (1.8-7.7) K/mm3 Sodium 148 H (137-145) mmol/L Chloride 110.4 H (98-107) mmol/L BUN 47 H (7-17) mg/dL Creatinine 2.9 H (0.6-1.2) mg/dL Glucose 125 H (65-100) mg/dL POC Glucose 214 H (70-105) mg/dL Calcium 6.7 L (8.4-10.2) mg/dL Total Protein 5.8 L (6.3-8.2) g/dL Albumin 2.6 L (3.9-5) g/dL 01/05/21 Range/Units 12:25 WBC 23.4 H (4.5-11.0) K/mm3 RBC 1.95 L (3.65-5.03) M/mm3 Hgb 5.5 L* (10.1-14.3) gm/dl Hct 16.9 L* (30.3-42.9) % RDW 17.7 H (13.2-15.2) % Lymph % (Auto) (13.4-35.0) % Lymph # (Auto) (1.2-5.4) K/mm3 [place] # (Auto) (0.0-0.8) K/mm3 Seg Neutrophils % (40.0-70.0) % Seg Neutrophils # (1.8-7.7) K/mm3 Sodium (137-145) mmol/L Chloride (98-107) mmol/L BUN (7-17) mg/dL Creatinine (0.6-1.2) mg/dL Glucose (65-100) mg/dL POC Glucose (70-105) mg/dL Calcium (8.4-10.2) mg/dL Total Protein (6.3-8.2) g/dL Albumin (3.9-5) g/dL
--- NOTE | 2021-01-05 13:36 | Progress Note ---
Assessment and Plan Assessment and Plan # Encephalopathy -she is with underlying COVID-19 -Possibility of CVA can not be excluded -elevated D-Dimer#1234 -started on decdron and remedevir # CVA (cerebral vascular accident) -can not be excluded -she is with more noticed right upper weakness -detail exam is difficult due to encephalopathy -MRI brain is pending -CT brain ? multi BG infarct -she is on ASA and Lipitor -LDL is pending -echo with Ef#50-60% -Pt/ST evaluate # FAVIOLA (acute kidney injury) -Patient placed on IV fluid normal saline. We will monitor BUN and creatinine. -Baseline creatinine unknown. -BUN/Cr#36/2.5 # Hypoxia -Patient was mildly hypoxic upon arrival in the emergency room. -Placed on oxygen by nasal cannula. We will keep O2 saturation greater or equal to 92%. -In view of the elevated D-dimer, we will schedule for VQ scan and venous Doppler of the lower extremities. # Tachycardia -VQ scan is negative -heparin drip. is off # UTI (urinary tract infection) -Patient placed on empiric IV antibiotics. #Pneumonia -Patient placed on empiric IV antibiotics. -COVID-19 is positive #Elevated troponin There has been no ischemic EKG changes. Patient denies chest pain We will trend cardiac enzymes. # DVT prophylaxis -Patient on SQ heparin. # Full code status -Patient is a full code. PLAN 1- MRI brain,US carotid and brain MRA 2- Maintain ASA and Lipitor 3-PT/ST evaluate 4- SQ heparine for now 5- Treat underlying infection and renal insuff. 6- Hydration will follow Subjective Date of service: 01/05/21 Principal diagnosis: faviola Interval history: status is unchanged she is confused slightly agitated MRI is pending Objective - Vital Sign Vital Signs - 12hr 01/05/21 01/05/21 01/05/21 02:25 05:49 05:51 Temperature 98.5 F Pulse Rate 108 H Respiratory 20 Rate Blood Pressure 123/67 O2 Sat by Pulse 98 83 L 90 Oximetry 01/05/21 01/05/21 01/05/21 08:00 10:00 11:44 Temperature 98.9 F Pulse Rate 119 H Respiratory 24 Rate Blood Pressure 111/67 O2 Sat by Pulse 98 97 88 Oximetry - General Apperance Constitutional: comfortable - EENT EENT: PERRL, mucous membranes moist - Respiratory Respiratory: lungs clear, rhonchi - Cardiovascular Cardiovascular: regular rate, normal S1, normal S2 Extremities: no peripheral edema bilat, no clubbing, cyanosis - Gastrointestinal Gastrointestinal: normoactive bowel sounds - Integumentary Integumentary: normal - Neurologic Cranial nerve examination: intact Speech examination: intact Detailed motor examination: grossly full strength in - Laboratory Findings CBC and BMP: 01/05/21 12:25 01/05/21 05:45 Abnormal Lab Findings: Abnormal Labs 01/01/21 01/01/21 01/01/21 23:33 23:33 23:33 WBC RBC Hgb Hct RDW 18.6 H Lymph % (Auto) 12.0 L Crawford % (Auto) 8.7 H Lymph # (Auto) 0.7 L Crawford # (Auto) Seg Neutrophils % 79.1 H Seg Neutrophils # D-Dimer 1378.45 H Heparin Anti-Xa Level Sodium 147 H Chloride 111.1 H Carbon Dioxide 14 L BUN 37 H Creatinine 2.3 H Glucose 184 H POC Glucose Calcium Ferritin AST Lactate Dehydrogenase Troponin T 0.043 H C-Reactive Protein Total Protein Albumin 3.4 L Triglycerides 284 H HDL Cholesterol 20 L Urine WBC (Auto) Coronavirus (PCR) 01/01/21 01/01/21 01/02/21 23:33 23:33 00:15 WBC RBC Hgb Hct RDW Lymph % (Auto) Crawford % (Auto) Lymph # (Auto) Crawford # (Auto) Seg Neutrophils % Seg Neutrophils # D-Dimer Heparin Anti-Xa Level Sodium Chloride Carbon Dioxide BUN Creatinine Glucose 186 H POC Glucose Calcium Ferritin 320.1 H AST Lactate Dehydrogenase 276 H Troponin T C-Reactive Protein 2.50 H Total Protein Albumin Triglycerides HDL Cholesterol Urine WBC (Auto) 88.0 H Coronavirus (PCR) 01/02/21 01/02/21 01/02/21 02:01 05:37 05:37 WBC RBC Hgb Hct RDW Lymph % (Auto) Crawford % (Auto) Lymph # (Auto) Crawford # (Auto) Seg Neutrophils % Seg Neutrophils # D-Dimer 1234.80 H Heparin Anti-Xa Level Sodium Chloride Carbon Dioxide BUN Creatinine Glucose POC Glucose Calcium Ferritin AST Lactate Dehydrogenase 282 H Troponin T 0.038 H C-Reactive Protein 2.60 H Total Protein Albumin Triglycerides HDL Cholesterol Urine WBC (Auto) Coronavirus (PCR) 01/02/21 01/02/21 01/02/21 05:37 13:09 19:14 WBC RBC Hgb Hct RDW Lymph % (Auto) Crawford % (Auto) Lymph # (Auto) Crawford # (Auto) Seg Neutrophils % Seg Neutrophils # D-Dimer Heparin Anti-Xa Level 1.87 H 1.32 H Sodium Chloride Carbon Dioxide BUN Creatinine Glucose POC Glucose Calcium Ferritin 317.0 H AST Lactate Dehydrogenase Troponin T C-Reactive Protein Total Protein Albumin Triglycerides HDL Cholesterol Urine WBC (Auto) Coronavirus (PCR) 01/02/21 01/03/21 01/03/21 Unknown 04:17 12:52 WBC RBC Hgb Hct RDW Lymph % (Auto) Crawford % (Auto) Lymph # (Auto) Crawford # (Auto) Seg Neutrophils % Seg Neutrophils # D-Dimer Heparin Anti-Xa Level Sodium Chloride Carbon Dioxide 20 L BUN 23 H Creatinine 1.5 H Glucose 137 H POC Glucose 118 H Calcium 7.1 L D Ferritin AST Lactate Dehydrogenase Troponin T C-Reactive Protein Total Protein Albumin Triglycerides HDL Cholesterol Urine WBC (Auto) Coronavirus (PCR) Positive A 01/03/21 01/04/21 01/04/21 21:20 08:24 12:08 WBC RBC Hgb Hct RDW Lymph % (Auto) Crawford % (Auto) Lymph # (Auto) Crawford # (Auto) Seg Neutrophils % Seg Neutrophils # D-Dimer Heparin Anti-Xa Level Sodium 146 H D Chloride Carbon Dioxide 21 L BUN 29 H 36 H Creatinine 2.2 H 2.5 H Glucose 137 H 142 H POC Glucose 115 H Calcium 7.6 L 6.9 L Ferritin AST 48 H Lactate Dehydrogenase Troponin T C-Reactive Protein Total Protein 6.2 L Albumin 2.9 L 2.4 L Triglycerides HDL Cholesterol Urine WBC (Auto) Coronavirus (PCR) 01/04/21 01/04/21 01/05/21 17:25 23:23 05:45 WBC 12.8 H RBC 2.31 L Hgb 6.6 L D Hct 20.0 L D RDW 18.0 H Lymph % (Auto) 6.8 L Crawford % (Auto) Lymph # (Auto) 0.9 L Crawford # (Auto) 0.9 H Seg Neutrophils % 86.0 H Seg Neutrophils # 11.0 H D-Dimer Heparin Anti-Xa Level Sodium 148 H Chloride 110.4 H Carbon Dioxide BUN 47 H Creatinine 2.9 H Glucose 125 H POC Glucose 214 H Calcium 6.7 L Ferritin AST Lactate Dehydrogenase Troponin T C-Reactive Protein Total Protein 5.8 L Albumin 2.6 L Triglycerides HDL Cholesterol Urine WBC (Auto) Coronavirus (PCR) 01/05/21 12:25 WBC 23.4 H RBC 1.95 L Hgb 5.5 L* Hct 16.9 L* RDW 17.7 H Lymph % (Auto) Crawford % (Auto) Lymph # (Auto) Crawford # (Auto) Seg Neutrophils % Seg Neutrophils # D-Dimer Heparin Anti-Xa Level Sodium Chloride Carbon Dioxide BUN Creatinine Glucose POC Glucose Calcium Ferritin AST Lactate Dehydrogenase Troponin T C-Reactive Protein Total Protein Albumin Triglycerides HDL Cholesterol Urine WBC (Auto) Coronavirus (PCR)
[2021-01-05] MEDS: PANTOPRAZOLE 80 MG in SODIUM CHLORIDE 0.9% 100 ML IV SCH (14:23)
[2021-01-05 16:19] LABS: INR 1.14 (0.87-1.13)
[2021-01-05 16:20] LABS: Partial Thromboplastin Time 24.7 Sec. (24.2-36.6)
[2021-01-05 16:31] LABS: Iron 41 ug/dL (37-170); Total Iron Binding Capacity 173 mcg/dL (250-450)
--- NOTE | 2021-01-05 17:20 | Cat Scan Report ---
CT ABDOMEN AND PELVIS WITHOUT CONTRAST INDICATION / CLINICAL INFORMATION: Acute severe anemia to look for bleed. TECHNIQUE: Axial CT images were obtained through the abdomen and pelvis without IV contrast. All CT scans at this location are performed using CT dose reduction for ALARA by means of automated exposure control. COMPARISON: None available. FINDINGS: LOWER CHEST: Large right chest wall subpectoral hematoma measuring 9.9 x 4.4 x 6.7 cm with surroundin g inflammatory stranding. Bibasilar lung opacities are nonspecific but likely represent atelectasis. LIVER: No significant abnormality. GALLBLADDER: No significant abnormality. BILE DUCTS: No significant abnormality. PANCREAS: No significant abnormality. SPLEEN: No significant abnormality. ADRENALS: No significant abnormality. RIGHT KIDNEY / URETER: Right lower pole cyst measuring 2.2 cm. Nonobstructing stone in midportion karuna suring 9 mm. Additional smaller hypodensities are too small to characterize. LEFT KIDNEY / URETER: There is a partially exophytic lesion at the left upper pole measuring 2.5 cm w ith Hounsfield unit of 35. STOMACH / SMALL BOWEL: No significant abnormality. COLON: Diverticulosis without acute inflammation. APPENDIX: No significant abnormality. PERITONEUM: No free fluid. No free air. No fluid collection. LYMPH NODES: No significant adenopathy. AORTA / ARTERIES: Severe atherosclerotic calcification without acute abnormality. IVC / VEINS: No significant abnormality. URINARY BLADDER: No significant abnormality. REPRODUCTIVE ORGANS: No significant abnormality. ADDITIONAL FINDINGS: None. SKELETAL SYSTEM: No aggressive osseous lesion. IMPRESSION: 1. Large right chest wall subpectoral hematoma with surrounding stranding. 2. Indeterminate left renal lesion. Recommend further evaluation with multiphasic CT or MRI when tomer ent is clinically stable. 3. Nonobstructing right renal stone. 4. Additional incidental findings as above Signer Name: Jaxon Osborne MD Signed: 01/05/2021 5:16 PM Workstation Name: [employer]
--- NOTE | 2021-01-05 17:35 | Event Note ---
Date: 01/05/21 Patient has large subpectoral hematoma right chest . I consulted Dr. Valdez. I called him, discussed case. He wants repeat stat H/H.
[2021-01-05] MEDS ORDERED: D5W/0.9% NACL 1,000 ML IV SCH (22:00)
[2021-01-05 23:35] LABS: Hematocrit 23.8 % (30.3-42.9)
[2021-01-06] MEDS: PANTOPRAZOLE 80 MG in SODIUM CHLORIDE 0.9% 100 ML IV SCH (00:29)
--- NOTE | 2021-01-06 07:36 | Event Note ---
Date: 01/06/21 Was consulted yesterday for drop in hemoglobin. Given overt bleeding recommended cross-sectional imaging rule out non-GI source. CT scan noted with non GI source therefore Dr. York cancelled GI consult so I will not see the patient. Please call me back if I can be of any further assistance
[2021-01-06] MEDS ORDERED: SODIUM CHLORIDE 0.9% 500 ML 500 ML IV ONE (09:00)
[2021-01-06 09:41] LABS: Hematocrit 35.6 % (30.3-42.9); Hemoglobin 12.1 gm/dl (10.1-14.3); Mean Corpuscular HGB Conc 34 % (30-34); Mean Corpuscular Volume 87 fl (79-97); Platelet Count 276 K/mm3 (140-440); Red Blood Count 4.08 M/mm3 (3.65-5.03); Red Cell Distribution Width 16.2 % (13.2-15.2)
[2021-01-06] MEDS: dexAMETHasone 4 MG/ML VIAL IV SCH (10:00)
[2021-01-06 10:01] LABS: Albumin 3.2 g/dL (3.9-5); C-Reactive Protein 2.6 mg/dL (0.00-1.30); Calcium 7.3 mg/dL (8.4-10.2)
[2021-01-06 10:34] LABS: Anisocytosis 1+; Band Neutrophils # (Manual) 0.4 K/mm3; Platelet Estimate Consistent w Auto; Total Cells Counted 100
--- NOTE | 2021-01-06 11:20 | Consultation ---
History of Present Illness Consult date: 01/06/21 Chief complaint: Right chest hematoma - History of present illness History of present illness: 55 yo female on ASA with drop in hgb down to 5.5. Subsequent CT chest revealed a large right subpectoral hematoma. She has received 3 u of PRBC overnight. Past History Past Medical History: hypertension, stroke Past Surgical History: Other (Not obtainable) Social history: other (Not obtainable) Family history: other (Not obtainable) Medications and Allergies Allergies Allergy/AdvReac Type Severity Reaction Status Date / Time Sulfa (Sulfonamide Allergy Unknown Verified 01/02/21 00:42 Antibiotics) Home Medications Medication Instructions Recorded Confirmed Last Taken Type Aspirin [Aspirin BABY CHEW TAB] 81 mg PO QDAY 01/02/21 01/02/21 Unknown History carvediloL [Coreg] 12.5 mg PO BID 01/02/21 01/02/21 Unknown History donepeziL [Aricept] 10 mg PO QHS 01/02/21 01/02/21 Unknown History hydrALAZINE [Apresoline TAB] 100 mg PO Q8HR 01/02/21 01/02/21 Unknown History Active Meds: Active Medications Acetaminophen (Acetaminophen 325 Mg Tab) 650 mg PO Q4H PRN PRN Reason: Pain, Mild (1-3) Atorvastatin Calcium (Atorvastatin 40 Mg Tab) 40 mg PO QHS [facility] Last Admin: 01/05/21 21:48 Dose: 40 mg Documented by: Bisacodyl (Bisacodyl 10 Mg Rect Supp) 10 mg [place] QDAY PRN PRN Reason: Constipation Dexamethasone (Dexamethasone 4 Mg/Ml Vial) 6 mg IV Q24HR [facility] Stop: 01/12/21 10:01 Last Admin: 01/05/21 09:41 Dose: 6 mg Documented by: Famotidine (Famotidine 20 Mg Tab) 20 mg PO QHS [facility] REMDESIVIR 100 mg/ Sodium (Chloride) 250 mls @ 500 mls/hr IV Q24HR@2100 [facility] Stop: 01/07/21 21:29 Last Admin: 01/05/21 21:47 Dose: 500 mls/hr Documented by: Dextrose/Sodium Chloride (D5ns) 1,000 mls @ 100 mls/hr IV DIRECT [facility] Last Admin: 01/05/21 23:58 Dose: 100 mls/hr Documented by: Metoclopramide HCl (Metoclopramide 10 Mg Tab) 5 mg PO Q6H PRN PRN Reason: Nausea And Vomiting Morphine Sulfate (Morphine 2 Mg/1 Ml Inj) 2 mg IV Q4H PRN PRN Reason: Pain, Moderate (4-6) Morphine Sulfate (Morphine 4 Mg/1 Ml Inj) 4 mg IV Q4H PRN PRN Reason: Pain , Severe (7-10) Last Admin: 01/04/21 14:56 Dose: 4 mg Documented by: Nifedipine (Nifedipine Xl 60 Mg Tab) 60 mg PO BID [facility] Last Admin: 01/05/21 21:48 Dose: 60 mg Documented by: Ondansetron HCl (Ondansetron 4 Mg/2 Ml Inj) 4 mg IV Q8H PRN PRN Reason: Nausea And Vomiting Promethazine HCl (Promethazine 25 Mg Rect Supp) 25 mg LA Q6H PRN PRN Reason: Nausea And Vomiting Sodium Chloride (Sodium Chloride 0.9% 10 Ml Flush Syringe) 10 ml IV BID [facility] Last Admin: 01/05/21 21:48 Dose: 10 ml Documented by: Sodium Chloride (Sodium Chloride 0.9% 10 Ml Flush Syringe) 10 ml IV PRN PRN PRN Reason: LINE FLUSH Sodium Chloride (Sodium Chloride 0.9% 50 Ml Ivpb) 50 ml IV Q24HR@2100 [facility] Stop: 01/07/21 21:01 Last Admin: 01/05/21 21:48 Dose: 50 ml Documented by: Review of Systems All systems: negative (none) Exam Vital Signs Temp Pulse Resp BP Pulse Ox 98.6 F 120 H 20 176/124 93 01/01/21 23:15 01/01/21 23:15 01/01/21 23:15 01/01/21 23:15 01/01/21 23:15 - General physical appearance Positive: well developed, well nourished, no distress - Eyes Positive: PERRL, normal occular movement - ENT Positive: normal pinna, normal nares, normal mucosa, no hearing loss, no congestion - Neck Positive: no masses, no bruits, trachea midline, no venous distension - Respiratory Positive: normal expansion, normal respiratory effort, clear to auscultation, other (There is a firm, tender 14 cm hematoma under the right breast/pectoralis major.) - Cardiovascular Rhythm: regular Heart Sounds: Present: S1 & S2. Absent: rub, click - Extremities Extremities: no ischemia, pulses symmetrical, No edema - Breasts Breasts: normal, no mass, no skin changes - Abdomen Abdomen: Present: soft, bowel sounds normal. Absent: tender, distended Hernia: none - Genitourinary Male Genitourinary: normal Female Genitourinary: normal - Integumentary no rash, no growths, no abnormal pigmentation - Neurologic Neurologic: alert and oriented to time, place and person, motor strength and sensation are grossly intact - Musculoskeletal normal gait, normal posture - Psychiatric Psychiatric: appropriate mood/affect, intact judgment & insight Results - Labs 01/06/21 09:12 01/06/21 09:10 Abnormal lab results 01/05/21 01/05/21 01/05/21 Range/Units 12:25 15:30 15:30 WBC 23.4 H (4.5-11.0) K/mm3 RBC 1.95 L (3.65-5.03) M/mm3 Hgb 5.5 L* (10.1-14.3) gm/dl Hct 16.9 L* (30.3-42.9) % RDW 17.7 H (13.2-15.2) % Seg Neuts % (Manual) (40.0-70.0) % Lymphocytes % (Manual) (13.4-35.0) % Nucleated RBC % (0.0-0.9) % Seg Neutrophils # Man (1.8-7.7) K/mm3 Monocytes # (Manual) (0.0-0.8) K/mm3 PT (12.2-14.9) Sec. INR (0.87-1.13) D-Dimer (0-234) ng/mlDDU Sodium (137-145) mmol/L Chloride (98-107) mmol/L Carbon Dioxide (22-30) mmol/L BUN (7-17) mg/dL Creatinine (0.6-1.2) mg/dL Glucose (65-100) mg/dL Calcium (8.4-10.2) mg/dL TIBC 173 L (250-450) mcg/dL Ferritin (10.0-200.0) ng/mL AST (5-40) units/L Lactate Dehydrogenase (91-180) units/L C-Reactive Protein (0.00-1.30) mg/dL Albumin (3.9-5) g/dL Crossmatch See Detail 01/05/21 01/05/21 01/05/21 Range/Units 15:30 15:30 22:49 WBC (4.5-11.0) K/mm3 RBC (3.65-5.03) M/mm3 Hgb 8.0 L (10.1-14.3) gm/dl Hct 23.8 L D (30.3-42.9) % RDW (13.2-15.2) % Seg Neuts % (Manual) (40.0-70.0) % Lymphocytes % (Manual) (13.4-35.0) % Nucleated RBC % (0.0-0.9) % Seg Neutrophils # Man (1.8-7.7) K/mm3 Monocytes # (Manual) (0.0-0.8) K/mm3 PT 15.1 H (12.2-14.9) Sec. INR 1.14 H (0.87-1.13) D-Dimer (0-234) ng/mlDDU Sodium (137-145) mmol/L Chloride (98-107) mmol/L Carbon Dioxide (22-30) mmol/L BUN (7-17) mg/dL Creatinine (0.6-1.2) mg/dL Glucose (65-100) mg/dL Calcium (8.4-10.2) mg/dL TIBC (250-450) mcg/dL Ferritin 375.6 H (10.0-200.0) ng/mL AST (5-40) units/L Lactate Dehydrogenase (91-180) units/L C-Reactive Protein (0.00-1.30) mg/dL Albumin (3.9-5) g/dL Crossmatch 01/06/21 01/06/21 01/06/21 Range/Units 09:10 09:10 09:12 WBC 18.0 H (4.5-11.0) K/mm3 RBC (3.65-5.03) M/mm3 Hgb (10.1-14.3) gm/dl Hct (30.3-42.9) % RDW 16.2 H (13.2-15.2) % Seg Neuts % (Manual) 80.0 H (40.0-70.0) % Lymphocytes % (Manual) 10.0 L (13.4-35.0) % Nucleated RBC % 4.0 H (0.0-0.9) % Seg Neutrophils # Man 14.4 H (1.8-7.7) K/mm3 Monocytes # (Manual) 1.3 H (0.0-0.8) K/mm3 PT (12.2-14.9) Sec. INR (0.87-1.13) D-Dimer 845.89 H (0-234) ng/mlDDU Sodium 151 H (137-145) mmol/L Chloride 113.1 H (98-107) mmol/L Carbon Dioxide 21 L (22-30) mmol/L BUN 42 H (7-17) mg/dL Creatinine 2.5 H (0.6-1.2) mg/dL Glucose 112 H (65-100) mg/dL Calcium 7.3 L (8.4-10.2) mg/dL TIBC (250-450) mcg/dL Ferritin (10.0-200.0) ng/mL AST 59 H (5-40) units/L Lactate Dehydrogenase 493 H (91-180) units/L C-Reactive Protein 2.60 H (0.00-1.30) mg/dL Albumin 3.2 L (3.9-5) g/dL Crossmatch Diabetes panel 01/06/21 Range/Units 09:10 Sodium 151 H (137-145) mmol/L Potassium 3.9 (3.6-5.0) mmol/L Chloride 113.1 H (98-107) mmol/L Carbon Dioxide 21 L (22-30) mmol/L BUN 42 H (7-17) mg/dL Creatinine 2.5 H (0.6-1.2) mg/dL Glucose 112 H (65-100) mg/dL Calcium 7.3 L (8.4-10.2) mg/dL AST 59 H (5-40) units/L ALT 23 (7-56) units/L Alkaline Phosphatase 55 (35-129) units/L Total Protein 7.2 D (6.3-8.2) g/dL Albumin 3.2 L (3.9-5) g/dL Calcium panel 01/06/21 Range/Units 09:10 Calcium 7.3 L (8.4-10.2) mg/dL Albumin 3.2 L (3.9-5) g/dL Pituitary panel 01/06/21 Range/Units 09:10 Sodium 151 H (137-145) mmol/L Potassium 3.9 (3.6-5.0) mmol/L Chloride 113.1 H (98-107) mmol/L Carbon Dioxide 21 L (22-30) mmol/L BUN 42 H (7-17) mg/dL Creatinine 2.5 H (0.6-1.2) mg/dL Glucose 112 H (65-100) mg/dL Calcium 7.3 L (8.4-10.2) mg/dL Adrenal panel 01/06/21 Range/Units 09:10 Sodium 151 H (137-145) mmol/L Potassium 3.9 (3.6-5.0) mmol/L Chloride 113.1 H (98-107) mmol/L Carbon Dioxide 21 L (22-30) mmol/L BUN 42 H (7-17) mg/dL Creatinine 2.5 H (0.6-1.2) mg/dL Glucose 112 H (65-100) mg/dL Calcium 7.3 L (8.4-10.2) mg/dL Total Bilirubin 0.50 (0.1-1.2) mg/dL AST 59 H (5-40) units/L ALT 23 (7-56) units/L Alkaline Phosphatase 55 (35-129) units/L Total Protein 7.2 D (6.3-8.2) g/dL Albumin 3.2 L (3.9-5) g/dL - Imaging CT scan - chest: report reviewed Assessment and Plan - Patient Problems (1) Hematoma (nontraumatic) of breast Current Visit: Yes Status: Acute Plan to address problem: 1) Continue to hold ASA. 2) Serial H/H
--- NOTE | 2021-01-06 11:22 | Progress Note ---
Assessment and Plan Impression: * faviola * sepsis * acute hypoxic resp failure * ams * metabolic acidosis * Bilateral PNA * Covid PNA * UTI with sepsis * anemia * hypernatremia Plan: * no emergent indication for [employer] at this time, however concerning trend * cr has improved today, 1.5->2.2->2.5->2.9->2.5, likely worsened due to anemia * note hemoglobin 6.6->5.5->8.0 s/p PRBCs, previously 13, note hematoma * FAVIOLA likely multifactorial, hypoperfusion due to sepsis, ATN with COVID * keep MAP>65, BP now stable, back on nifedipine * abx per primary team, note initiation of remdesivir * continue IVF for renal perfusion as tolerated, currently on D5/NS, consider switch to D5 1/2NS given hypernatremia * calcium noted, replete prn * strict i/os and daily lytes * avoid nephrotoxins Subjective Date of service: 01/06/21 Principal diagnosis: faviola Interval history: labs and chart reviewed events noted Note drop in hemoglobin, hematoma chest noted Objective - Exam Narrative Exam: primary team exam noted, exam deferred for preservation of PPE - Vital Signs Vital signs: Vital Signs - 12hr 01/06/21 01/06/21 01/06/21 02:36 03:02 03:03 Temperature 98.3 F Pulse Rate 107 H 108 H Respiratory 19 Rate Blood Pressure 141/84 O2 Sat by Pulse 98 95 95 Oximetry 01/06/21 01/06/21 01/06/21 03:04 03:17 03:22 Temperature 98.3 F 98.2 F 98.2 F Pulse Rate 108 H 102 H 104 H Respiratory 19 18 18 Rate Blood Pressure 141/84 129/74 129/74 O2 Sat by Pulse 95 99 99 Oximetry 01/06/21 01/06/21 01/06/21 03:47 03:49 04:17 Temperature 97.6 F 97.6 F 98.2 F Pulse Rate 100 H 98 H 107 H Respiratory 16 16 20 Rate Blood Pressure 111/73 111/73 131/85 O2 Sat by Pulse 98 98 95 Oximetry 01/06/21 01/06/21 01/06/21 04:18 04:45 04:46 Temperature 98.2 F 97.9 F Pulse Rate 110 H 100 H 98 H Respiratory 18 20 Rate Blood Pressure 131/85 140/82 O2 Sat by Pulse 95 94 96 Oximetry 01/06/21 01/06/21 01/06/21 04:47 05:17 05:23 Temperature 97.9 F 97.8 F Pulse Rate 98 H 98 H 101 H Respiratory 20 18 Rate Blood Pressure 140/82 143/82 O2 Sat by Pulse 96 96 99 Oximetry 01/06/21 01/06/21 01/06/21 05:47 05:57 07:00 Temperature 98.2 F Pulse Rate 99 H 98 H 98 H Respiratory 18 Rate Blood Pressure 155/82 O2 Sat by Pulse 100 94 Oximetry 01/06/21 08:42 Temperature Pulse Rate Respiratory Rate Blood Pressure O2 Sat by Pulse 96 Oximetry - Lab 01/06/21 09:12 01/06/21 09:10 Most recent lab results Calcium 7.3 mg/dL (8.4-10.2) L 01/06/21 09:10 Medications & Allergies - Medications Allergies/Adverse Reactions: Allergies Sulfa (Sulfonamide Antibiotics) Allergy (Verified 01/02/21 00:42) Unknown Home Medications: Home Medications Medication Instructions Recorded Confirmed Last Taken Type Aspirin [Aspirin BABY CHEW TAB] 81 mg PO QDAY 01/02/21 01/02/21 Unknown History carvediloL [Coreg] 12.5 mg PO BID 01/02/21 01/02/21 Unknown History donepeziL [Aricept] 10 mg PO QHS 01/02/21 01/02/21 Unknown History hydrALAZINE [Apresoline TAB] 100 mg PO Q8HR 01/02/21 01/02/21 Unknown History Active Medications: Generic Name Dose Route Start Last Admin Trade Name Freq PRN Reason Stop Dose Admin Acetaminophen 650 mg 01/02/21 01:40 Acetaminophen 325 Mg Tab PO Q4H PRN Pain, Mild (1-3) Atorvastatin Calcium 40 mg 01/02/21 22:00 01/05/21 21:48 Atorvastatin 40 Mg Tab PO 40 mg QHS [facility] Administration Bisacodyl 10 mg 01/02/21 01:40 Bisacodyl 10 Mg Rect Supp [place] QDAY PRN Constipation Dexamethasone 6 mg 01/03/21 10:00 01/05/21 09:41 Dexamethasone 4 Mg/Ml Vial IV 01/12/21 10:01 6 mg Q24HR [facility] Administration Famotidine 20 mg 01/06/21 22:00 Famotidine 20 Mg Tab PO QHS [facility] REMDESIVIR 100 mg/ Sodium 250 mls @ 500 mls/hr 01/04/21 21:00 01/05/21 21:47 Chloride IV 01/07/21 21:29 500 mls/hr Q24HR@2100 [facility] Administration Dextrose/Sodium Chloride 1,000 mls @ 100 mls/hr 01/05/21 22:00 01/05/21 23:58 D5ns IV 100 mls/hr DIRECT [facility] Administration Metoclopramide HCl 5 mg 01/02/21 01:40 Metoclopramide 10 Mg Tab PO Q6H PRN Nausea And Vomiting Morphine Sulfate 2 mg 01/02/21 01:40 Morphine 2 Mg/1 Ml Inj IV Q4H PRN Pain, Moderate (4-6) Morphine Sulfate 4 mg 01/02/21 01:40 01/04/21 14:56 Morphine 4 Mg/1 Ml Inj IV 4 mg Q4H PRN Administration Pain , Severe (7-10) Nifedipine 60 mg 01/02/21 13:00 01/05/21 21:48 Nifedipine Xl 60 Mg Tab PO 60 mg BID [facility] Administration Ondansetron HCl 4 mg 01/02/21 01:40 Ondansetron 4 Mg/2 Ml Inj IV Q8H PRN Nausea And Vomiting Promethazine HCl 25 mg 01/02/21 01:40 Promethazine 25 Mg Rect Supp [place] Q6H PRN Nausea And Vomiting Sodium Chloride 10 ml 01/02/21 10:00 01/05/21 21:48 Sodium Chloride 0.9% 10 Ml Flush Syringe IV 10 ml BID [facility] Administration Sodium Chloride 10 ml 01/02/21 01:40 Sodium Chloride 0.9% 10 Ml Flush Syringe IV PRN PRN LINE FLUSH Sodium Chloride 50 ml 01/03/21 13:30 01/05/21 21:48 Sodium Chloride 0.9% 50 Ml Ivpb IV 01/07/21 21:01 50 ml Q24HR@2100 [facility] Administration
[2021-01-06] MEDS: NIFEdipine XL 60 MG TAB PO SCH ×2 (11:30→21:43)
--- NOTE | 2021-01-06 13:17 | Progress Note ---
Assessment and Plan Assessment and plan: CVA, likely. CT of the head with left basal ganglia changes. For MRI Sepsis. Present on admission. Patient meets criteria given the tachycardia, tachypnea and diagnosis of UTI/pneumonia. Bilateral pneumonia. COVID-19 pneumonia. Acute kidney injury. Etiology secondary to ATN/sepsis. UTI. Toxic metabolic encephalopathy. 01/02/2021. Altered mentation is secondary to toxic metabolic encephalopathy from sepsis/pneumonia/UTI +/-CVA. CT scan of the head reveals several findings including: Suspicious hypodensity within the left basal ganglia which could be secondary to acute infarct. MRI recommended for further evaluation. There are several small lacunar infarcts identified within the right basal ganglia. Neurology consultation when available. Patient will be continued on IV antibiotics. Patient currently undergoing VQ scan for elevated D-dimer to rule out PE. Follow-up Covid PCR. Total visit time equals 35 minutes with greater than 50% spent on coordination of care and counseling. 01/03/2021. Await MRI brain. Echocardiogram reveals left ventricular size normal with normal systolic function. EF 50 to 60%. Mild diastolic dysfunction. No PFO. Creatinine has improved to 1.5. Nephrology following. Covid PCR positive on 01/02. Continue IV antibiotics. Follow-up blood cultures. Check procalcitonin. Continue dexamethasone. VQ scan is negative for PE. Therefore, we will discontinue IV heparin drip. 01/04/2021. Continue dexamethasone 6 mg IV for 10 days. ID initiated remdesivir yesterday. Continue to trend inflammatory markers of ferritin, D-dimer, CRP and LDH. Initial markers elevated with D-dimer 2078. CRP 2.5. Ferritin 320. Continue DVT prophylactic anticoagulation. Continue ceftriaxone and azithromycin given the elevated procalcitonin. Continue to monitor creatinine, strict i/os and daily lytes, avoid nephrotoxins. Await MRI brain to further assess abnormal CT scan and CVA. Neurology consultation pending 01/05/21 patient with Covid-19 pneumonia. Hgb 5.5 today, was 6.6 yesterday and 13.6 about 3 days ago. No obvious bleeding. Obtain stat PT,INR,Iron. stool occult blood. Transfuse 3 Units PRBC. NPO. Protonix drip. I consulted GI and dis cussed with Dr. Grijalva. Obtain CT Abd/pelvis to r/o hematoma. I also discussed with Dr. Zelaya and he agrees to hold Aspirin because of sudden large Hgb drop. Patient cannot give history For MRI Brain to r/o stroke 01/06/21 Patient with Covid-19 pneumonia with acute respiratory failure. he had Hgb 5,5 yesterday from 13.6 just 3 days earlier. Workup revealed subpectoral hematoma right chest. She was transfused 3 Units PRBC, now Hgb 12. Surgeon following. No known trauma. Patient cannot give history, has aphasia from poss stroke. CT Head sugg several lacunar infarcts both basal ganglia. MRI Brain to r/o stroke pending. Continue to monitor H/H FAVIOLA followed by Nephrology History Interval history: Patient with Covid -19 pneumonia, Had sudden drop in Hgb, diagnosed with right chest hematoma She cannot give history Hospitalist Physical - Physical exam Narrative exam: Gen: Not in acute distress, lying in bed, On Oxygen by NC HEENT: Normocephalic, atraumatic Lungs: Large swelling right chest from subpectoral hematoma, no wheeze Heart: S1 and S2 reg, no murmurs, rubs or gallop Abd:soft, non-tender, non distended, normal bowel sounds Ext: No edema, clubbing or cyanosis Neuro: Awake, alert,dysphasia - Constitutional Vitals: Temp Pulse Resp BP Pulse Ox 98.2 F 98 H 18 155/82 96 01/06/21 05:47 01/06/21 07:00 01/06/21 05:47 01/06/21 05:47 01/06/21 08:42 General appearance: Present: no acute distress, well-nourished, other (Dry oral mucosa) HEART Score - HEART Score Troponin: Troponin T 0.038 ng/mL (0.00-0.029) H 01/02/21 02:01 Results - Labs CBC & Chem 7: 01/06/21 09:12 01/06/21 09:10 Labs: Laboratory Last Values WBC 18.0 K/mm3 (4.5-11.0) H 01/06/21 09:12 RBC 4.08 M/mm3 (3.65-5.03) 01/06/21 09:12 Hgb 12.1 gm/dl (10.1-14.3) D 01/06/21 09:12 Hct 35.6 % (30.3-42.9) D 01/06/21 09:12 MCV 87 fl (79-97) 01/06/21 09:12 MCH 30 pg (28-32) 01/06/21 09:12 MCHC 34 % (30-34) 01/06/21 09:12 RDW 16.2 % (13.2-15.2) H 01/06/21 09:12 Plt Count 276 K/mm3 (140-440) 01/06/21 09:12 Lymph % (Auto) 6.8 % (13.4-35.0) L 01/04/21 23:23 Nuckolls % (Auto) 7.1 % (0.0-7.3) 01/04/21 23:23 Eos % (Auto) 0.0 % (0.0-4.3) 01/04/21 23:23 Baso % (Auto) 0.1 % (0.0-1.8) 01/04/21 23:23 Lymph # (Auto) 0.9 K/mm3 (1.2-5.4) L 01/04/21 23:23 Nuckolls # (Auto) 0.9 K/mm3 (0.0-0.8) H 01/04/21 23:23 Eos # (Auto) 0.0 K/mm3 (0.0-0.4) 01/04/21 23:23 Baso # (Auto) 0.0 K/mm3 (0.0-0.1) 01/04/21 23:23 Add Manual Diff Complete 01/06/21 09:12 Total Counted 100 01/06/21 09:12 Seg Neutrophils % 86.0 % (40.0-70.0) H 01/04/21 23:23 Seg Neuts % (Manual) 80.0 % (40.0-70.0) H 01/06/21 09:12 Band Neutrophils % 2.0 % 01/06/21 09:12 Lymphocytes % (Manual) 10.0 % (13.4-35.0) L 01/06/21 09:12 Monocytes % (Manual) 7.0 % (0.0-7.3) 01/06/21 09:12 Metamyelocytes % 1.0 % 01/06/21 09:12 Nucleated RBC % 4.0 % (0.0-0.9) H 01/06/21 09:12 Seg Neutrophils # 11.0 K/mm3 (1.8-7.7) H 01/04/21 23:23 Seg Neutrophils # Man 14.4 K/mm3 (1.8-7.7) H 01/06/21 09:12 Band Neutrophils # 0.4 K/mm3 01/06/21 09:12 Lymphocytes # (Manual) 1.8 K/mm3 (1.2-5.4) 01/06/21 09:12 Abs React Lymphs (Man) 0.0 K/mm3 01/06/21 09:12 Monocytes # (Manual) 1.3 K/mm3 (0.0-0.8) H 01/06/21 09:12 Eosinophils # (Manual) 0.0 K/mm3 (0.0-0.4) 01/06/21 09:12 Basophils # (Manual) 0.0 K/mm3 (0.0-0.1) 01/06/21 09:12 Metamyelocytes # 0.2 K/mm3 01/06/21 09:12 Myelocytes # 0.0 K/mm3 01/06/21 09:12 Promyelocytes # 0.0 K/mm3 01/06/21 09:12 Blast Cells # 0.0 K/mm3 01/06/21 09:12 WBC Morphology Not Reportable 01/06/21 09:12 Hypersegmented Neuts Not Reportable 01/06/21 09:12 Hyposegmented Neuts Not Reportable 01/06/21 09:12 Hypogranular Neuts Not Reportable 01/06/21 09:12 Smudge Cells Not Reportable 01/06/21 09:12 Toxic Granulation Not Reportable 01/06/21 09:12 Toxic Vacuolation Not Reportable 01/06/21 09:12 Dohle Bodies Not Reportable 01/06/21 09:12 Pelger-Huet Anomaly Not Reportable 01/06/21 09:12 Lenin Rods Not Reportable 01/06/21 09:12 Platelet Estimate Consistent w auto 01/06/21 09:12 Clumped Platelets Not Reportable 01/06/21 09:12 Plt Clumps, EDTA Not Reportable 01/06/21 09:12 Large Platelets Not Reportable 01/06/21 09:12 Giant Platelets Not Reportable 01/06/21 09:12 Platelet Satelliting Not Reportable 01/06/21 09:12 Plt Morphology Comment Not Reportable 01/06/21 09:12 RBC Morphology Not Reportable 01/06/21 09:12 Dimorphic RBCs Not Reportable 01/06/21 09:12 Polychromasia Not Reportable 01/06/21 09:12 Hypochromasia Not Reportable 01/06/21 09:12 Poikilocytosis Not Reportable 01/06/21 09:12 Anisocytosis 1+ 01/06/21 09:12 Microcytosis Not Reportable 01/06/21 09:12 Macrocytosis Not Reportable 01/06/21 09:12 Spherocytes Not Reportable 01/06/21 09:12 Pappenheimer Bodies Not Reportable 01/06/21 09:12 Sickle Cells Not Reportable 01/06/21 09:12 Target Cells Not Reportable 01/06/21 09:12 Tear Drop Cells Not Reportable 01/06/21 09:12 Ovalocytes Not Reportable 01/06/21 09:12 Helmet Cells Not Reportable 01/06/21 09:12 Watters-Yachats Bodies Not Reportable 01/06/21 09:12 Camanche Rings Not Reportable 01/06/21 09:12 Jossy Cells Not Reportable 01/06/21 09:12 Bite Cells Not Reportable 01/06/21 09:12 Crenated Cell Not Reportable 01/06/21 09:12 Elliptocytes Not Reportable 01/06/21 09:12 Acanthocytes (Spur) Not Reportable 01/06/21 09:12 Rouleaux Not Reportable 01/06/21 09:12 Hemoglobin C Crystals Not Reportable 01/06/21 09:12 Schistocytes Not Reportable 01/06/21 09:12 Malaria parasites Not Reportable 01/06/21 09:12 Spike Bodies Not Reportable 01/06/21 09:12 Hem Pathologist Commnt No 01/06/21 09:12 PT 15.1 Sec. (12.2-14.9) H 01/05/21 15:30 INR 1.14 (0.87-1.13) H 01/05/21 15:30 APTT 24.7 Sec. (24.2-36.6) 01/05/21 15:30 D-Dimer 845.89 ng/mlDDU (0-234) H 01/06/21 09:10 Heparin Anti-Xa Level 1.32 U.I./ml (0.3-0.7) H 01/02/21 19:14 Sodium 151 mmol/L (137-145) H 01/06/21 09:10 Potassium 3.9 mmol/L (3.6-5.0) 01/06/21 09:10 Chloride 113.1 mmol/L (98-107) H 01/06/21 09:10 Carbon Dioxide 21 mmol/L (22-30) L 01/06/21 09:10 Anion Gap 21 mmol/L 01/06/21 09:10 BUN 42 mg/dL (7-17) H 01/06/21 09:10 Creatinine 2.5 mg/dL (0.6-1.2) H 01/06/21 09:10 Estimated GFR 24 ml/min 01/06/21 09:10 BUN/Creatinine Ratio 17 % 01/06/21 09:10 Glucose 112 mg/dL (65-100) H 01/06/21 09:10 POC Glucose 214 mg/dL (70-105) H 01/04/21 17:25 Lactic Acid 1.80 mmol/L (0.7-2.0) 01/01/21 23:33 Calcium 7.3 mg/dL (8.4-10.2) L 01/06/21 09:10 Iron 41 ug/dL (37-170) 01/05/21 15:30 TIBC 173 mcg/dL (250-450) L 01/05/21 15:30 Ferritin 375.6 ng/mL (10.0-200.0) H 01/05/21 15:30 Total Bilirubin 0.50 mg/dL (0.1-1.2) 01/06/21 09:10 AST 59 units/L (5-40) H 01/06/21 09:10 ALT 23 units/L (7-56) 01/06/21 09:10 Alkaline Phosphatase 55 units/L (35-129) 01/06/21 09:10 Lactate Dehydrogenase 493 units/L (91-180) H 01/06/21 09:10 Troponin T 0.038 ng/mL (0.00-0.029) H 01/02/21 02:01 C-Reactive Protein 2.60 mg/dL (0.00-1.30) H 01/06/21 09:10 NT-Pro-B Natriuret Pep 398.4 pg/mL (0-900) 01/01/21 23:33 Total Protein 7.2 g/dL (6.3-8.2) D 01/06/21 09:10 Albumin 3.2 g/dL (3.9-5) L 01/06/21 09:10 Albumin/Globulin Ratio 0.8 % 01/06/21 09:10 Triglycerides 284 mg/dL (2-149) H 01/01/21 23:33 Cholesterol 151 mg/dL (50-199) 01/01/21 23:33 LDL Cholesterol Direct 65 mg/dL (50-130) 01/01/21 23:33 HDL Cholesterol 20 mg/dL (40-59) L 01/01/21 23:33 Cholesterol/HDL Ratio 7.55 % 01/01/21 23:33 Procalcitonin 0.71 ng/mL (<0.15) 01/02/21 05:37 Urine Color Izzy (Yellow) 01/02/21 00:15 Urine Turbidity Cloudy (Clear) 01/02/21 00:15 Urine pH 6.0 (5.0-7.0) 01/02/21 00:15 Ur Specific [place] 1.016 (1.003-1.030) 01/02/21 00:15 Urine Protein 100 mg/dl mg/dL (Negative) 01/02/21 00:15 Urine Glucose (UA) Neg mg/dL (Negative) 01/02/21 00:15 Urine Ketones Neg mg/dL (Negative) 01/02/21 00:15 Urine Blood Lg (Negative) 01/02/21 00:15 Urine Nitrite Neg (Negative) 01/02/21 00:15 Urine Bilirubin Neg (Negative) 01/02/21 00:15 Urine Urobilinogen 4.0 mg/dL (<2.0) 01/02/21 00:15 Ur Leukocyte Esterase Mod (Negative) 01/02/21 00:15 Urine WBC (Auto) 88.0 /HPF (0.0-6.0) H 01/02/21 00:15 Urine RBC (Auto) 56.0 /HPF (0.0-6.0) 01/02/21 00:15 U Epithel Cells (Auto) 2.0 /HPF (0-13.0) 01/02/21 00:15 Urine WBC Clumps 1+ /HPF 01/02/21 00:15 Urine Mucus Few /HPF 01/02/21 00:15 Urine Yeast (Budding) Few /HPF 01/02/21 00:15 Coronavirus (PCR) Positive (Negative) A 01/02/21 Unknown Blood Type A POSITIVE 01/05/21 15:30 Antibody Screen Negative 01/05/21 15:30 Crossmatch See Detail 01/05/21 15:30 Microbiology: Microbiology 01/01/21 23:33 Peripheral/Venous Blood Culture - Preliminary NO GROWTH AFTER 4 DAYS 01/01/21 23:23 Peripheral/Venous Blood Culture - Preliminary NO GROWTH AFTER 4 DAYS Marie/IV: Voiding Method External Female Catheter Active Medications - Current Medications Current Medications: Generic Name Dose Route Start Last Admin Trade Name Freq PRN Reason Stop Dose Admin Acetaminophen 650 mg 01/02/21 01:40 Acetaminophen 325 Mg Tab PO Q4H PRN Pain, Mild (1-3) Atorvastatin Calcium 40 mg 01/02/21 22:00 01/05/21 21:48 Atorvastatin 40 Mg Tab PO 40 mg QHS BELTRAN Administration Bisacodyl 10 mg 01/02/21 01:40 Bisacodyl 10 Mg Rect Supp NJ QDAY PRN Constipation Dexamethasone 6 mg 01/03/21 10:00 01/05/21 09:41 Dexamethasone 4 Mg/Ml Vial IV 01/12/21 10:01 6 mg Q24HR BELTRAN Administration Famotidine 20 mg 01/06/21 22:00 Famotidine 20 Mg Tab PO QHS BELTRAN REMDESIVIR 100 mg/ Sodium 250 mls @ 500 mls/hr 01/04/21 21:00 01/05/21 21:47 Chloride IV 01/07/21 21:29 500 mls/hr Q24HR@2100 BELTRAN Administration Dextrose/Sodium Chloride 1,000 mls @ 100 mls/hr 01/05/21 22:00 01/05/21 23:58 D5ns IV 100 mls/hr DIRECT BELTRAN Administration Metoclopramide HCl 5 mg 01/02/21 01:40 Metoclopramide 10 Mg Tab PO Q6H PRN Nausea And Vomiting Morphine Sulfate 2 mg 01/02/21 01:40 Morphine 2 Mg/1 Ml Inj IV Q4H PRN Pain, Moderate (4-6) Morphine Sulfate 4 mg 01/02/21 01:40 01/04/21 14:56 Morphine 4 Mg/1 Ml Inj IV 4 mg Q4H PRN Administration Pain , Severe (7-10) Nifedipine 60 mg 01/02/21 13:00 01/06/21 11:30 Nifedipine Xl 60 Mg Tab PO 60 mg BID BELTRAN Administration Ondansetron HCl 4 mg 01/02/21 01:40 Ondansetron 4 Mg/2 Ml Inj IV Q8H PRN Nausea And Vomiting Promethazine HCl 25 mg 01/02/21 01:40 Promethazine 25 Mg Rect Supp NJ Q6H PRN Nausea And Vomiting Sodium Chloride 10 ml 01/02/21 10:00 01/06/21 11:30 Sodium Chloride 0.9% 10 Ml Flush Syringe IV 10 ml BID BELTRAN Administration Sodium Chloride 10 ml 01/02/21 01:40 Sodium Chloride 0.9% 10 Ml Flush Syringe IV PRN PRN LINE FLUSH Sodium Chloride 50 ml 01/03/21 13:30 01/05/21 21:48 Sodium Chloride 0.9% 50 Ml Ivpb IV 01/07/21 21:01 50 ml Q24HR@2100 BELTRAN Administration Nutrition/Malnutrition Assess - Dietary Evaluation Nutrition/Malnutrition Findings: Nutrition Notes Start: 01/02/21 10:21 Freq: Status: Active Protocol: Document 01/02/21 10:21 GB (Rec: 01/02/21 10:29 GB [id number]) Nutrition Notes Need for Assessment generated from: MD Order Initial or Follow up Assessment Current Diagnosis Hypertension,Stroke Other Pertinent Diagnosis Consult for diet education Current Diet NPO x1 Labs/Tests 01/01: Na 147, BUN 37, creatinine 2.3, Tg 284 01/02: ferritin 317 (slight improvement) Pertinent Medications azithromycin Height 5 ft 1 in Weight 63.503 kg [place] Body Weight (kg) 47.72 BMI 26.4 Weight change and time frame No reported weight change. Weight Status Overweight Subjective/Other Information Pt in ER holding for admit to room. Education to be reviewed following room admit. Percent of energy/protein needs met: 0% at this time with NPOx1 day Burn Absent Trauma Absent GI Symptoms None Food Allergy No Skin Integrity/Comment No complications reported Current % PO Other Minimum of two criteria No #1 Nutrition Diagnosis Food and nutrition-related knowledge deficit Comments: admitted for UTI/AMS Etiology consult for diet education As Evidenced by Signs and Symptoms education relating to history of HTN/stroke. Is patient on ventilator? No Is Patient Ambulatory and/or Out of Bed No REE-([place]-confined to bed) 1393.596 Kcal/Kg value to use for calculation 22 Approximate Energy Requirements Using 1397 kcal/Kg Calculation Used for Recommendations Kcal/kg Additional Notes Protein 1-1.2 g/kg @ 64k- 77g Fluids: 1 ml/kcal or per MD Nutrition Intervention Change Diet Order: NPO x 1, once medically feasible advance diet to low sodium/heart healthy Nutrition Support: n/a Add Supplement/Snack (indicate name/kcal n/a /protein ) Goal #1 Education to be provided to pt post admittance to room. Goal #2 Diet advanced to low sodium/ heart healthy Anticipated Discharge Needs: no specialized nutrition instructions at this time Follow-Up By: 01/12/21 Additional Comments f/u: provide HTN/stroke nutrition therapy educatio, if pt d/c prior to f/u: pt can access RD outpatient via their insurance RD program or call [facility] RD for more information.
--- NOTE | 2021-01-06 14:18 | Progress Note ---
Assessment and Plan Cultures: Blood culture 01/01/2021 pending SARS CoV2 PCR positive Assessment: 55-year-old female with history of hypertension, previous stroke, admitted on 01/01/2021 secondary to altered mental status for 4 days per family members: #Severe COVID pneumonia +/- bacterial pneumonia: CXR with left-sided pneumonia. Infllammatory markers elevated. D-dimer 2078. CRP 2.5. Ferritin 320. Procalcitonin elevated at 0.7 in the setting of FAVIOLA. VQ scan low probability for PE. #Acute hypoxemic respiratory failure: To 70%, currently on 5 L nasal cannula. #UTI: Urinalysis consistent with UTI. #FAVIOLA: Creatinine improving. From COVID #Encephalopathy: History of CVA ?acute CVA +/- COVID. CT with left basal ganglia density. #Hypertension uncontrolled. #Subpectoral hematoma Recommendations: -Continue dexamethasone 6 mg IV/PO daily for 10 days -Remdesivir for 5 days (CrCl>30 mg/mL) -Monitor inflammatory markers - ferritin, Ddimer, CRP, LDH -Monitor liver function test on Remdesivir -Continue anticoagulation per System Protocol -Prone positioning as possible -Continue ceftriaxone for 5 days and azithromycin for [address] MD [facility] O: [phone] F: [phone] Subjective Date of service: 01/06/21 Principal diagnosis: faviola Interval history: Afebrile, white count 18, improved from yesterday. Imaging personally reviewed: CT abdomen pelvis, subpectoral hematoma. Indeterminate left renal lesion Objective - Exam Narrative Exam: Physical exam deferred to reduce risk of transmission of COVID-19. Please refer to primary team's note. - Constitutional Vitals: Vital Signs Temp Pulse Resp BP Pulse Ox 97.7 F 103 H 22 142/89 92 01/06/21 12:18 01/06/21 12:18 01/06/21 12:18 01/06/21 12:18 01/06/21 12:18 Temperature -Last 24 Hours Temperature 97.7 F Temperature 98.2 F Temperature 97.8 F Temperature 97.9 F Temperature 97.9 F Temperature 98.2 F Temperature 98.2 F Temperature 97.6 F Temperature 97.6 F Temperature 98.2 F Temperature 98.2 F Temperature 98.3 F Temperature 98.3 F Temperature 98.3 F Temperature 98.4 F Temperature 97.3 F Temperature 98.5 F Temperature 98.2 F Temperature 98.3 F Temperature 98 F Temperature 98.7 F Temperature 98.5 F - Labs CBC & Chem 7: 01/06/21 09:12 01/06/21 09:10 Labs: Abnormal lab results 01/05/21 01/05/21 01/05/21 Range/Units 15:30 15:30 15:30 WBC (4.5-11.0) K/mm3 Hgb (10.1-14.3) gm/dl Hct (30.3-42.9) % RDW (13.2-15.2) % Seg Neuts % (Manual) (40.0-70.0) % Lymphocytes % (Manual) (13.4-35.0) % Nucleated RBC % (0.0-0.9) % Seg Neutrophils # Man (1.8-7.7) K/mm3 Monocytes # (Manual) (0.0-0.8) K/mm3 PT 15.1 H (12.2-14.9) Sec. INR 1.14 H (0.87-1.13) D-Dimer (0-234) ng/mlDDU Sodium (137-145) mmol/L Chloride (98-107) mmol/L Carbon Dioxide (22-30) mmol/L BUN (7-17) mg/dL Creatinine (0.6-1.2) mg/dL Glucose (65-100) mg/dL Calcium (8.4-10.2) mg/dL TIBC 173 L (250-450) mcg/dL Ferritin (10.0-200.0) ng/mL AST (5-40) units/L Lactate Dehydrogenase (91-180) units/L C-Reactive Protein (0.00-1.30) mg/dL Albumin (3.9-5) g/dL Crossmatch See Detail 01/05/21 01/05/21 01/06/21 Range/Units 15:30 22:49 09:10 WBC (4.5-11.0) K/mm3 Hgb 8.0 L (10.1-14.3) gm/dl Hct 23.8 L D (30.3-42.9) % RDW (13.2-15.2) % Seg Neuts % (Manual) (40.0-70.0) % Lymphocytes % (Manual) (13.4-35.0) % Nucleated RBC % (0.0-0.9) % Seg Neutrophils # Man (1.8-7.7) K/mm3 Monocytes # (Manual) (0.0-0.8) K/mm3 PT (12.2-14.9) Sec. INR (0.87-1.13) D-Dimer (0-234) ng/mlDDU Sodium 151 H (137-145) mmol/L Chloride 113.1 H (98-107) mmol/L Carbon Dioxide 21 L (22-30) mmol/L BUN 42 H (7-17) mg/dL Creatinine 2.5 H (0.6-1.2) mg/dL Glucose 112 H (65-100) mg/dL Calcium 7.3 L (8.4-10.2) mg/dL TIBC (250-450) mcg/dL Ferritin 375.6 H (10.0-200.0) ng/mL AST 59 H (5-40) units/L Lactate Dehydrogenase 493 H (91-180) units/L C-Reactive Protein 2.60 H (0.00-1.30) mg/dL Albumin 3.2 L (3.9-5) g/dL Crossmatch 01/06/21 01/06/21 Range/Units 09:10 09:12 WBC 18.0 H (4.5-11.0) K/mm3 Hgb (10.1-14.3) gm/dl Hct (30.3-42.9) % RDW 16.2 H (13.2-15.2) % Seg Neuts % (Manual) 80.0 H (40.0-70.0) % Lymphocytes % (Manual) 10.0 L (13.4-35.0) % Nucleated RBC % 4.0 H (0.0-0.9) % Seg Neutrophils # Man 14.4 H (1.8-7.7) K/mm3 Monocytes # (Manual) 1.3 H (0.0-0.8) K/mm3 PT (12.2-14.9) Sec. INR (0.87-1.13) D-Dimer 845.89 H (0-234) ng/mlDDU Sodium (137-145) mmol/L Chloride (98-107) mmol/L Carbon Dioxide (22-30) mmol/L BUN (7-17) mg/dL Creatinine (0.6-1.2) mg/dL Glucose (65-100) mg/dL Calcium (8.4-10.2) mg/dL TIBC (250-450) mcg/dL Ferritin (10.0-200.0) ng/mL AST (5-40) units/L Lactate Dehydrogenase (91-180) units/L C-Reactive Protein (0.00-1.30) mg/dL Albumin (3.9-5) g/dL Crossmatch
--- NOTE | 2021-01-06 16:59 | Magnetic Resonance Report ---
MRA HEAD 01/06/2021 INDICATION / CLINICAL INFORMATION: multiCVA. TIA TECHNIQUE: Routine MRA of the head is performed. 3-D/MIP reformats postprocessed. COMPARISON: None available. FINDINGS: Exam quality is somewhat limited in resolution. As result, reconstructed images show irregularity jonathan ng courses of the [place] of [place] vessels. I suspect this is primarily artifactual, although some un derlying atherosclerotic irregularity may be present. There is no evidence of vessel occlusion. IMPRESSION: Limited exam due to decreased [id number] ratio. Signer Name: Geovanny Gordon MD Signed: 01/06/2021 4:54 PM Workstation Name: [id number]
--- NOTE | 2021-01-06 17:00 | Magnetic Resonance Report ---
MRA NECK 01/06/2021 INDICATION / CLINICAL INFORMATION: TIA Vs CVA. TECHNIQUE: Routine MRA of the neck are performed. 3-D/MIP reformats postprocessed. Percentage stenosis is deter mined by direct quantitative measurements of distal internal carotid artery diameter compared with no rmal reference segments or by criteria similar to NASCET where applicable. COMPARISON: None available. FINDINGS: Unenhanced MR angiographic images of the neck were obtained. 3D/MIP reformats were post-processed. Carotid bifurcations: No evidence of carotid bifurcation stenosis Common carotid arteries: No significant abnormality. Cervical internal carotid arteries: No significant abnormality. Cervical vertebral arteries: No significant abnormality. Visible aortic arch: Not included on this exam. IMPRESSION: No evidence of carotid bifurcation stenosis. Signer Name: Geovanny Gordon MD Signed: 01/06/2021 4:55 PM Workstation Name: [id number]
--- NOTE | 2021-01-06 17:05 | Magnetic Resonance Report ---
MRI BRAIN 01/06/2021 INDICATION / CLINICAL INFORMATION: CVA. TECHNIQUE: Multiplanar, multisequence MR images of the brain were obtained. COMPARISON: None available. FINDINGS: BRAIN / INTRACRANIAL CONTENTS: Unenhanced MR images of the brain were obtained. There are extensive chronic microangiopathic changes. Diffuse focal and confluent white matter T2 evelin ghted signal abnormality is present throughout the cerebral hemispheric white matter and brainstem. T here is evidence of chronic focal lacunar changes in the thalami and basal ganglia bilaterally. On the left, there is a 6 mm area of restricted diffusion in the anterior left centrum semiovale, con sistent with a small focus of acute subcortical ischemic injury superimposed on extensive chronic guido nges. Underlying diffuse cerebral atrophy is present. There is no evidence of hemorrhage or mass. There are no abnormal extra-axial fluid collections. Incidental note is made of some fluid layering in the left maxillary sinus. EXTRACRANIAL: Unremarkable CRANIOCERVICAL JUNCTION: No significant abnormality. VASCULAR FLOW-VOIDS: No significant abnormality. IMPRESSION: Extensive chronic white matter migraines or pelvic change. 6 cm focus of acute ischemic injury in left centrum semiovale. Signer Name: Geovanny Gordon MD Signed: 01/06/2021 5:01 PM Workstation Name: [id number]
--- NOTE | 2021-01-06 17:14 | Event Note ---
Date: 01/06/21 Called son, Robert Roberto and gave update , and discussed diagnosis of Covid- 19, stroke , FAVIOLA and right subpectoral hematoma with anemia.
[2021-01-06] MEDS ORDERED: FAMOTIDINE 20 MG TAB PO SCH (22:00)
[2021-01-07] MEDS: SODIUM CHLORIDE 0.9% 50 ML IVPB IV SCH ×2 (03:07→22:04)
[2021-01-07] MEDS: REMDESIVIR 100 MG in SODIUM CHLORIDE 0.9% 250ML 250 ML IV SCH ×2 (03:08→21:30)
[2021-01-07 06:26] LABS: Basophils % (Auto) 0.1 % (0.0-1.8); Hematocrit 35.1 % (30.3-42.9); Hemoglobin 12.4 gm/dl (10.1-14.3); Lymphocytes # (Auto) 2.6 K/mm3 (1.2-5.4); Lymphocytes % (Auto) 16.7 % (13.4-35.0); Mean Corpuscular HGB Conc 35 % (30-34); Mean Corpuscular Volume 86 fl (79-97); Monocytes # (Auto) 0.8 K/mm3 (0.0-0.8); Monocytes % (Auto) 4.9 % (0.0-7.3); Platelet Count 329 K/mm3 (140-440); Red Blood Count 4.08 M/mm3 (3.65-5.03); Red Cell Distribution Width 16.3 % (13.2-15.2)
[2021-01-07 06:58] LABS: Calcium 7.8 mg/dL (8.4-10.2)
--- NOTE | 2021-01-07 07:53 | Progress Note ---
Assessment and Plan Assessment and plan: Assessment and plan: CVA, likely. CT of the head with left basal ganglia changes. For MRI Sepsis. Present on admission. Patient meets criteria given the tachycardia, tachypnea and diagnosis of UTI/pneumonia. Bilateral pneumonia. COVID-19 pneumonia. Acute kidney injury. Etiology secondary to ATN/sepsis. UTI. Toxic metabolic encephalopathy. 01/02/2021. Altered mentation is secondary to toxic metabolic encephalopathy from sepsis/pneumonia/UTI +/-CVA. CT scan of the head reveals several findings including: Suspicious hypodensity within the left basal ganglia which could be secondary to acute infarct. MRI recommended for further evaluation. There are several small lacunar infarcts identified within the right basal ganglia. Neurology consultation when available. Patient will be continued on IV antibiotics. Patient currently undergoing VQ scan for elevated D-dimer to rule out PE. Follow-up Covid PCR. Total visit time equals 35 minutes with greater than 50% spent on coordination of care and counseling. 01/03/2021. Await MRI brain. Echocardiogram reveals left ventricular size normal with normal systolic function. EF 50 to 60%. Mild diastolic dys function. No PFO. Creatinine has improved to 1.5. Nephrology following. Covid PCR positive on 01/02. Continue IV antibiotics. Follow-up blood cultures. Check procalcitonin. Continue dexamethasone. VQ scan is negative for PE. Therefore, we will discontinue IV heparin drip. 01/04/2021. Continue dexamethasone 6 mg IV for 10 days. ID initiated remdesivir yesterday. Continue to trend inflammatory markers of ferritin, D-dimer, CRP and LDH. Initial markers elevated with D-dimer 2078. CRP 2.5. Ferritin 320. Continue DVT prophylactic anticoagulation. Continue ceftriaxone and azithromy gabriel given the elevated procalcitonin. Continue to monitor creatinine, strict i/os and daily lytes, avoid nephrotoxins. Await MRI brain to further assess abnormal CT scan and CVA. Neurology consultation pending 01/05/21 patient with Covid-19 pneumonia. Hgb 5.5 today, was 6.6 yesterday and 13.6 about 3 days ago. No obvious bleeding. Obtain stat PT,INR,Iron. stool occult blood. Transfuse 3 Units PRBC. NPO. Protonix drip. I consulted GI and discussed with Dr. Grijalva. Obtain CT Abd/pelvis to r/o hematoma. I also discussed with Dr. Zelaya and he agrees to hold Aspirin because of sudden large Hgb drop. Patient cannot give history For MRI Brain to r/o stroke 01/06/21 Patient with Covid-19 pneumonia with acute respiratory failure. he had Hgb 5,5 yesterday from 13.6 just 3 days earlier. Workup revealed subpectoral hematoma right chest. She was transfused 3 Units PRBC, now Hgb 12. Surgeon following. No known trauma. Patient cannot give history, has aphasia from poss stroke. CT Head sugg several lacunar infarcts both basal ganglia. MRI Brain to r/o stroke pending. Continue to monitor H/H FAVIOLA followed by Nephrology 01/07/21 Hypernatremia improved from 151 to 150 on D5NS. Will change IV fluids to D5 half-normal saline at the same rate. On 7 L of oxygen for acute hypoxic respiratory failure due to COVID-19 pneumonia. Will wean off oxygen as tolerated Hb trending up. Continue to hold ASA. Surgeon, nephrology and ID input appreciated. Still on remdesivir and dexamethasone. History Interval history: No new complaints. No shortness of breath, cough, fever, chills. No abdominal pain. Hospitalist Physical - Constitutional Vitals: Temp Pulse Resp BP Pulse Ox 98.6 F 110 H 18 152/96 93 01/07/21 05:07 01/07/21 05:07 01/07/21 05:07 01/07/21 05:07 01/07/21 05:07 General appearance: Present: no acute distress, well-nourished, other (Dry oral mucosa) - EENT Eyes: Present: EOM intact - Neck Neck: Present: supple, normal ROM - Respiratory Respiratory effort: normal Respiratory: bilateral: CTA - Cardiovascular Rhythm: regular Heart Sounds: Present: S1 & S2 - Extremities Extremities: No edema - Abdominal General gastrointestinal: soft, non-tender, non-distended, normal bowel sounds - Psychiatric Psychiatric: appropriate mood/affect HEART Score - HEART Score Troponin: Troponin T 0.038 ng/mL (0.00-0.029) H 01/02/21 02:01 Results - Labs CBC & Chem 7: 01/07/21 05:25 01/07/21 05:25 Labs: Laboratory Last Values WBC 15.4 K/mm3 (4.5-11.0) H 01/07/21 05:25 RBC 4.08 M/mm3 (3.65-5.03) 01/07/21 05:25 Hgb 12.4 gm/dl (10.1-14.3) 01/07/21 05:25 Hct 35.1 % (30.3-42.9) 01/07/21 05:25 MCV 86 fl (79-97) 01/07/21 05:25 MCH 30 pg (28-32) 01/07/21 05:25 MCHC 35 % (30-34) H 01/07/21 05:25 RDW 16.3 % (13.2-15.2) H 01/07/21 05:25 Plt Count 329 K/mm3 (140-440) 01/07/21 05:25 Lymph % (Auto) 16.7 % (13.4-35.0) 01/07/21 05:25 [place] % (Auto) 4.9 % (0.0-7.3) 01/07/21 05:25 Eos % (Auto) 0.0 % (0.0-4.3) 01/07/21 05:25 Baso % (Auto) 0.1 % (0.0-1.8) 01/07/21 05:25 Lymph # (Auto) 2.6 K/mm3 (1.2-5.4) 01/07/21 05:25 [place] # (Auto) 0.8 K/mm3 (0.0-0.8) 01/07/21 05:25 Eos # (Auto) 0.0 K/mm3 (0.0-0.4) 01/07/21 05:25 Baso # (Auto) 0.0 K/mm3 (0.0-0.1) 01/07/21 05:25 Add Manual Diff Complete 01/06/21 09:12 Total Counted 100 01/06/21 09:12 Seg Neutrophils % 78.3 % (40.0-70.0) H 01/07/21 05:25 Seg Neuts % (Manual) 80.0 % (40.0-70.0) H 01/06/21 09:12 Band Neutrophils % 2.0 % 01/06/21 09:12 Lymphocytes % (Manual) 10.0 % (13.4-35.0) L 01/06/21 09:12 Monocytes % (Manual) 7.0 % (0.0-7.3) 01/06/21 09:12 Metamyelocytes % 1.0 % 01/06/21 09:12 Nucleated RBC % 4.0 % (0.0-0.9) H 01/06/21 09:12 Seg Neutrophils # 12.0 K/mm3 (1.8-7.7) H 01/07/21 05:25 Seg Neutrophils # Man 14.4 K/mm3 (1.8-7.7) H 01/06/21 09:12 Band Neutrophils # 0.4 K/mm3 01/06/21 09:12 Lymphocytes # (Manual) 1.8 K/mm3 (1.2-5.4) 01/06/21 09:12 Abs React Lymphs (Man) 0.0 K/mm3 01/06/21 09:12 Monocytes # (Manual) 1.3 K/mm3 (0.0-0.8) H 01/06/21 09:12 Eosinophils # (Manual) 0.0 K/mm3 (0.0-0.4) 01/06/21 09:12 Basophils # (Manual) 0.0 K/mm3 (0.0-0.1) 01/06/21 09:12 Metamyelocytes # 0.2 K/mm3 01/06/21 09:12 Myelocytes # 0.0 K/mm3 01/06/21 09:12 Promyelocytes # 0.0 K/mm3 01/06/21 09:12 Blast Cells # 0.0 K/mm3 01/06/21 09:12 WBC Morphology Not Reportable 01/06/21 09:12 Hypersegmented Neuts Not Reportable 01/06/21 09:12 Hyposegmented Neuts Not Reportable 01/06/21 09:12 Hypogranular Neuts Not Reportable 01/06/21 09:12 Smudge Cells Not Reportable 01/06/21 09:12 Toxic Granulation Not Reportable 01/06/21 09:12 Toxic Vacuolation Not Reportable 01/06/21 09:12 Dohle Bodies Not Reportable 01/06/21 09:12 Pelger-Huet Anomaly Not Reportable 01/06/21 09:12 Lenin Rods Not Reportable 01/06/21 09:12 Platelet Estimate Consistent w auto 01/06/21 09:12 Clumped Platelets Not Reportable 01/06/21 09:12 Plt Clumps, EDTA Not Reportable 01/06/21 09:12 Large Platelets Not Reportable 01/06/21 09:12 Giant Platelets Not Reportable 01/06/21 09:12 Platelet Satelliting Not Reportable 01/06/21 09:12 Plt Morphology Comment Not Reportable 01/06/21 09:12 RBC Morphology Not Reportable 01/06/21 09:12 Dimorphic RBCs Not Reportable 01/06/21 09:12 Polychromasia Not Reportable 01/06/21 09:12 Hypochromasia Not Reportable 01/06/21 09:12 Poikilocytosis Not Reportable 01/06/21 09:12 Anisocytosis 1+ 01/06/21 09:12 Microcytosis Not Reportable 01/06/21 09:12 Macrocytosis Not Reportable 01/06/21 09:12 Spherocytes Not Reportable 01/06/21 09:12 Pappenheimer Bodies Not Reportable 01/06/21 09:12 Sickle Cells Not Reportable 01/06/21 09:12 Target Cells Not Reportable 01/06/21 09:12 Tear Drop Cells Not Reportable 01/06/21 09:12 Ovalocytes Not Reportable 01/06/21 09:12 Helmet Cells Not Reportable 01/06/21 09:12 [place] Bodies Not Reportable 01/06/21 09:12 [place] Rings Not Reportable 01/06/21 09:12 Alta Cells Not Reportable 01/06/21 09:12 Bite Cells Not Reportable 01/06/21 09:12 Crenated Cell Not Reportable 01/06/21 09:12 Elliptocytes Not Reportable 01/06/21 09:12 Acanthocytes (Spur) Not Reportable 01/06/21 09:12 Rouleaux Not Reportable 01/06/21 09:12 Hemoglobin C Crystals Not Reportable 01/06/21 09:12 Schistocytes Not Reportable 01/06/21 09:12 Malaria parasites Not Reportable 01/06/21 09:12 Spike Bodies Not Reportable 01/06/21 09:12 Hem Pathologist Commnt No 01/06/21 09:12 PT 15.1 Sec. (12.2-14.9) H 01/05/21 15:30 INR 1.14 (0.87-1.13) H 01/05/21 15:30 APTT 24.7 Sec. (24.2-36.6) 01/05/21 15:30 D-Dimer 845.89 ng/mlDDU (0-234) H 01/06/21 09:10 Heparin Anti-Xa Level 1.32 U.I./ml (0.3-0.7) H 01/02/21 19:14 Sodium 150 mmol/L (137-145) H 01/07/21 05:25 Potassium 3.6 mmol/L (3.6-5.0) 01/07/21 05:25 Chloride 108.4 mmol/L (98-107) H 01/07/21 05:25 Carbon Dioxide 23 mmol/L (22-30) 01/07/21 05:25 Anion Gap 22 mmol/L 01/07/21 05:25 BUN 38 mg/dL (7-17) H 01/07/21 05:25 Creatinine 2.0 mg/dL (0.6-1.2) H 01/07/21 05:25 Estimated GFR 31 ml/min 01/07/21 05:25 BUN/Creatinine Ratio 19 % 01/07/21 05:25 Glucose 74 mg/dL (65-100) 01/07/21 05:25 POC Glucose 214 mg/dL (70-105) H 01/04/21 17:25 Lactic Acid 1.80 mmol/L (0.7-2.0) 01/01/21 23:33 Calcium 7.8 mg/dL (8.4-10.2) L 01/07/21 05:25 Iron 41 ug/dL (37-170) 01/05/21 15:30 TIBC 173 mcg/dL (250-450) L 01/05/21 15:30 Ferritin 375.6 ng/mL (10.0-200.0) H 01/05/21 15:30 Total Bilirubin 0.50 mg/dL (0.1-1.2) 01/06/21 09:10 AST 59 units/L (5-40) H 01/06/21 09:10 ALT 23 units/L (7-56) 01/06/21 09:10 Alkaline Phosphatase 55 units/L (35-129) 01/06/21 09:10 Lactate Dehydrogenase 493 units/L (91-180) H 01/06/21 09:10 Troponin T 0.038 ng/mL (0.00-0.029) H 01/02/21 02:01 C-Reactive Protein 2.60 mg/dL (0.00-1.30) H 01/06/21 09:10 NT-Pro-B Natriuret Pep 398.4 pg/mL (0-900) 01/01/21 23:33 Total Protein 7.2 g/dL (6.3-8.2) D 01/06/21 09:10 Albumin 3.2 g/dL (3.9-5) L 01/06/21 09:10 Albumin/Globulin Ratio 0.8 % 01/06/21 09:10 Triglycerides 284 mg/dL (2-149) H 01/01/21 23:33 Cholesterol 151 mg/dL (50-199) 01/01/21 23:33 LDL Cholesterol Direct 65 mg/dL (50-130) 01/01/21 23:33 HDL Cholesterol 20 mg/dL (40-59) L 01/01/21 23:33 Cholesterol/HDL Ratio 7.55 % 01/01/21 23:33 Procalcitonin 0.71 ng/mL (<0.15) 01/02/21 05:37 Urine Color Izzy (Yellow) 01/02/21 00:15 Urine Turbidity Cloudy (Clear) 01/02/21 00:15 Urine pH 6.0 (5.0-7.0) 01/02/21 00:15 Ur Specific [place] 1.016 (1.003-1.030) 01/02/21 00:15 Urine Protein 100 mg/dl mg/dL (Negative) 01/02/21 00:15 Urine Glucose (UA) Neg mg/dL (Negative) 01/02/21 00:15 Urine Ketones Neg mg/dL (Negative) 01/02/21 00:15 Urine Blood Lg (Negative) 01/02/21 00:15 Urine Nitrite Neg (Negative) 01/02/21 00:15 Urine Bilirubin Neg (Negative) 01/02/21 00:15 Urine Urobilinogen 4.0 mg/dL (<2.0) 01/02/21 00:15 Ur Leukocyte Esterase Mod (Negative) 01/02/21 00:15 Urine WBC (Auto) 88.0 /HPF (0.0-6.0) H 01/02/21 00:15 Urine RBC (Auto) 56.0 /HPF (0.0-6.0) 01/02/21 00:15 U Epithel Cells (Auto) 2.0 /HPF (0-13.0) 01/02/21 00:15 Urine WBC Clumps 1+ /HPF 01/02/21 00:15 Urine Mucus Few /HPF 01/02/21 00:15 Urine Yeast (Budding) Few /HPF 01/02/21 00:15 Coronavirus (PCR) Positive (Negative) A 01/02/21 Unknown Blood Type A POSITIVE 01/05/21 15:30 Antibody Screen Negative 01/05/21 15:30 Crossmatch See Detail 01/05/21 15:30 Microbiology: Microbiology 01/01/21 23:33 Peripheral/Venous Blood Culture - Preliminary NO GROWTH AFTER 4 DAYS 01/01/21 23:23 Peripheral/Venous Blood Culture - Preliminary NO GROWTH AFTER 4 DAYS Marie/IV: Voiding Method External Female Catheter Active Medications - Current Medications Current Medications: Generic Name Dose Route Start Last Admin Trade Name Freq PRN Reason Stop Dose Admin Acetaminophen 650 mg 01/02/21 01:40 Acetaminophen 325 Mg Tab PO Q4H PRN Pain, Mild (1-3) Atorvastatin Calcium 40 mg 01/02/21 22:00 01/06/21 21:44 Atorvastatin 40 Mg Tab PO 40 mg QHS BELTRAN Administration Bisacodyl 10 mg 01/02/21 01:40 Bisacodyl 10 Mg Rect Supp OR QDAY PRN Constipation Dexamethasone 6 mg 01/03/21 10:00 01/06/21 10:00 Dexamethasone 4 Mg/Ml Vial IV 01/12/21 10:01 Not Given Q24HR BELTRAN Famotidine 20 mg 01/06/21 22:00 01/06/21 21:44 Famotidine 20 Mg Tab PO 20 mg QHS BELTRAN Administration REMDESIVIR 100 mg/ Sodium 250 mls @ 500 mls/hr 01/04/21 21:00 01/07/21 03:08 Chloride IV 01/07/21 21:29 Not Given Q24HR@2100 BELTRAN Dextrose/Sodium Chloride 1,000 mls @ 100 mls/hr 01/05/21 22:00 01/05/21 23:58 D5ns IV 100 mls/hr DIRECT BELTRAN Administration Metoclopramide HCl 5 mg 01/02/21 01:40 Metoclopramide 10 Mg Tab PO Q6H PRN Nausea And Vomiting Morphine Sulfate 2 mg 01/02/21 01:40 Morphine 2 Mg/1 Ml Inj IV Q4H PRN Pain, Moderate (4-6) Morphine Sulfate 4 mg 01/02/21 01:40 01/04/21 14:56 Morphine 4 Mg/1 Ml Inj IV 4 mg Q4H PRN Administration Pain , Severe (7-10) Nifedipine 60 mg 01/02/21 13:00 01/06/21 21:43 Nifedipine Xl 60 Mg Tab PO 60 mg BID BELTRAN Administration Ondansetron HCl 4 mg 01/02/21 01:40 Ondansetron 4 Mg/2 Ml Inj IV Q8H PRN Nausea And Vomiting Promethazine HCl 25 mg 01/02/21 01:40 Promethazine 25 Mg Rect Supp OR Q6H PRN Nausea And Vomiting Sodium Chloride 10 ml 01/02/21 10:00 01/07/21 03:10 Sodium Chloride 0.9% 10 Ml Flush Syringe IV Not Given BID BELTRAN Sodium Chloride 10 ml 01/02/21 01:40 Sodium Chloride 0.9% 10 Ml Flush Syringe IV PRN PRN LINE FLUSH Sodium Chloride 50 ml 01/03/21 13:30 01/07/21 03:07 Sodium Chloride 0.9% 50 Ml Ivpb IV 01/07/21 21:01 Not Given Q24HR@2100 [facility] Nutrition/Malnutrition Assess - Dietary Evaluation Nutrition/Malnutrition Findings: Nutrition Notes Start: 01/02/21 10:21 Freq: Status: Active Protocol: Document 01/02/21 10:21 GB (Rec: 01/02/21 10:29 GB [id number]) Nutrition Notes Need for Assessment generated from: MD Order Initial or Follow up Assessment Current Diagnosis Hypertension,Stroke Other Pertinent Diagnosis Consult for diet education Current Diet NPO x1 Labs/Tests 01/01: Na 147, BUN 37, creatinine 2.3, Tg 284 01/02: ferritin 317 (slight improvement) Pertinent Medications azithromycin Height 5 ft 1 in Weight 63.503 kg Vincent Body Weight (kg) 47.72 BMI 26.4 Weight change and time frame No reported weight change. Weight Status Overweight Subjective/Other Information Pt in ER holding for admit to room. Education to be reviewed following room admit. Percent of energy/protein needs met: 0% at this time with NPOx1 day Burn Absent Trauma Absent GI Symptoms None Food Allergy No Skin Integrity/Comment No complications reported Current % PO Other Minimum of two criteria No #1 Nutrition Diagnosis Food and nutrition-related knowledge deficit Comments: admitted for UTI/AMS Etiology consult for diet education As Evidenced by Signs and Symptoms education relating to history of HTN/stroke. Is patient on ventilator? No Is Patient Ambulatory and/or Out of Bed No REE-([place]. Jeor-confined to bed) 1393.596 Kcal/Kg value to use for calculation 22 Approximate Energy Requirements Using 1397 kcal/Kg Calculation Used for Recommendations Kcal/kg Additional Notes Protein 1-1.2 g/kg @ 64k- 77g Fluids: 1 ml/kcal or per MD Nutrition Intervention Change Diet Order: NPO x 1, once medically feasible advance diet to low sodium/heart healthy Nutrition Support: n/a Add Supplement/Snack (indicate name/kcal n/a /protein ) Goal #1 Education to be provided to pt post admittance to room. Goal #2 Diet advanced to low sodium/ heart healthy Anticipated Discharge Needs: no specialized nutrition instructions at this time Follow-Up By: 01/12/21 Additional Comments f/u: provide HTN/stroke nutrition therapy educatio, if pt d/c prior to f/u: pt can access RD outpatient via their insurance RD program or call [facility] RD for more information. - Attestation Statement I have reviewed and agreed w/ Malnutrition eval & tx plan: Yes
[2021-01-07] MEDS ORDERED: PANTOPRAZOLE 40 MG INJ IV SCH (10:00)
[2021-01-07] MEDS: NIFEdipine XL 60 MG TAB PO SCH ×2 (10:57→22:04)
--- NOTE | 2021-01-07 11:42 | Progress Note ---
Assessment and Plan Assessment and Plan # Encephalopathy -she is with underlying COVID-19 -Possibility of CVA can not be excluded -elevated D-Dimer#1234 -started on decdron and remedevir # CVA (cerebral vascular accident) -can not be excluded -she is with more noticed right upper weakness -detail exam is difficult due to encephalopathy -MRI brain is remarkable for left centrum semioval acute event -CT brain ? multi BG infarct -she is OFF ASA and Lipitor -LDL is pending -echo with Ef#50-60% -Pt/ST evaluate # FAVIOLA (acute kidney injury) and hypernatremia#150 today -Patient placed on IV fluid normal saline. We will monitor BUN and creatinine. -Baseline creatinine unknown. -BUN/Cr#36/2.5---2 # Hypoxia -Patient was mildly hypoxic upon arrival in the emergency room. -Placed on oxygen by nasal cannula. We will keep O2 saturation greater or equal to 92%. -In view of the elevated D-dimer, we will schedule for VQ scan and venous Doppler of the lower extremities. # Drop in HG -Right subpectorla hematoma -OFF ASA as per General surgery -Moniter HG # Tachycardia -VQ scan is negative -heparin drip. is off # UTI (urinary tract infection) -Patient placed on empiric IV antibiotics. #Pneumonia -Patient placed on empiric IV antibiotics. -COVID-19 is positive #Elevated troponin There has been no ischemic EKG changes. Patient denies chest pain We will trend cardiac enzymes. # DVT prophylaxis - SQ heparin.on hold # Full code status -Patient is a full code. PLAN 1- MRI brain,US carotid and brain MRA noted 2- OFF ASA and on Lipitor 3-PT/ST evaluate 4- SQ heparine On hold 5- Treat underlying infection and renal insuff. 6- Hydration will sign off call as neded consider restart ASA when stable Subjective Date of service: 01/07/21 Principal diagnosis: faviola Interval history: status is unchanged she is confused slightly agitated MRI Brain is noted as well as MRA noted Hg is stable today Objective - Vital Sign Vital Signs - 12hr 01/07/21 01/07/21 01/07/21 02:00 05:07 09:37 Temperature 98.6 F Pulse Rate 110 H Respiratory 18 Rate Blood Pressure 152/96 O2 Sat by Pulse 94 93 98 Oximetry - General Apperance Constitutional: comfortable - EENT EENT: PERRL, mucous membranes moist - Respiratory Respiratory: chest non-tender, lungs clear, rhonchi - Cardiovascular Cardiovascular: regular rate, normal S1, normal S2 Extremities: no peripheral edema bilat, no clubbing, cyanosis - Gastrointestinal Gastrointestinal: normoactive bowel sounds - Integumentary Integumentary: normal - Neurologic Cranial nerve examination: PERRL, EOMI Detailed motor examination: other (more right side weakness >left ) - Psychiatric Psychiatric: other (alert to name disoriented to place and date , follow only simple command) - Laboratory Findings CBC and BMP: 01/07/21 05:25 01/07/21 05:25 Abnormal Lab Findings: Abnormal Labs 01/01/21 01/01/21 01/01/21 23:33 23:33 23:33 WBC RBC Hgb Hct MCHC RDW 18.6 H Lymph % (Auto) 12.0 L [place] % (Auto) 8.7 H Lymph # (Auto) 0.7 L [place] # (Auto) Seg Neutrophils % 79.1 H Seg Neuts % (Manual) Lymphocytes % (Manual) Nucleated RBC % Seg Neutrophils # Seg Neutrophils # Man Monocytes # (Manual) PT INR D-Dimer 1378.45 H Heparin Anti-Xa Level Sodium 147 H Chloride 111.1 H Carbon Dioxide 14 L BUN 37 H Creatinine 2.3 H Glucose 184 H POC Glucose Calcium TIBC Ferritin AST Lactate Dehydrogenase Troponin T 0.043 H C-Reactive Protein Total Protein Albumin 3.4 L Triglycerides 284 H HDL Cholesterol 20 L Urine WBC (Auto) Coronavirus (PCR) Crossmatch 01/01/21 01/01/21 01/02/21 23:33 23:33 00:15 WBC RBC Hgb Hct MCHC RDW Lymph % (Auto) [place] % (Auto) Lymph # (Auto) [place] # (Auto) Seg Neutrophils % Seg Neuts % (Manual) Lymphocytes % (Manual) Nucleated RBC % Seg Neutrophils # Seg Neutrophils # Man Monocytes # (Manual) PT INR D-Dimer Heparin Anti-Xa Level Sodium Chloride Carbon Dioxide BUN Creatinine Glucose 186 H POC Glucose Calcium TIBC Ferritin 320.1 H AST Lactate Dehydrogenase 276 H Troponin T C-Reactive Protein 2.50 H Total Protein Albumin Triglycerides HDL Cholesterol Urine WBC (Auto) 88.0 H Coronavirus (PCR) Crossmatch 01/02/21 01/02/2101/02/21 02:01 05:37 05:37 WBC RBC Hgb Hct MCHC RDW Lymph % (Auto) [place] % (Auto) Lymph # (Auto) [place] # (Auto) Seg Neutrophils % Seg Neuts % (Manual) Lymphocytes % (Manual) Nucleated RBC % Seg Neutrophils # Seg Neutrophils # Man Monocytes # (Manual) PT INR D-Dimer 1234.80 H Heparin Anti-Xa Level Sodium Chloride Carbon Dioxide BUN Creatinine Glucose POC Glucose Calcium TIBC Ferritin AST Lactate Dehydrogenase 282 H Troponin T 0.038 H C-Reactive Protein 2.60 H Total Protein Albumin Triglycerides HDL Cholesterol Urine WBC (Auto) Coronavirus (PCR) Crossmatch 01/02/21 01/02/21 01/02/21 05:37 13:09 19:14 WBC RBC Hgb Hct MCHC RDW Lymph % (Auto) [place] % (Auto) Lymph # (Auto) [place] # (Auto) Seg Neutrophils % Seg Neuts % (Manual) Lymphocytes % (Manual) Nucleated RBC % Seg Neutrophils # Seg Neutrophils # Man Monocytes # (Manual) PT INR D-Dimer Heparin Anti-Xa Level 1.87 H 1.32 H Sodium Chloride Carbon Dioxide BUN Creatinine Glucose POC Glucose Calcium TIBC Ferritin 317.0 H AST Lactate Dehydrogenase Troponin T C-Reactive Protein Total Protein Albumin Triglycerides HDL Cholesterol Urine WBC (Auto) Coronavirus (PCR) Crossmatch 01/02/21 01/03/21 01/03/21 Unknown 04:17 12:52 WBC RBC Hgb Hct MCHC RDW Lymph % (Auto) [place] % (Auto) Lymph # (Auto) [place] # (Auto) Seg Neutrophils % Seg Neuts % (Manual) Lymphocytes % (Manual) Nucleated RBC % Seg Neutrophils # Seg Neutrophils # Man Monocytes # (Manual) PT INR D-Dimer Heparin Anti-Xa Level Sodium Chloride Carbon Dioxide 20 L BUN 23 H Creatinine 1.5 H Glucose 137 H POC Glucose 118 H Calcium 7.1 L D TIBC Ferritin AST Lactate Dehydrogenase Troponin T C-Reactive Protein Total Protein Albumin Triglycerides HDL Cholesterol Urine WBC (Auto) Coronavirus (PCR) Positive A Crossmatch 01/03/21 01/04/21 01/04/21 21:20 08:24 12:08 WBC RBC Hgb Hct MCHC RDW Lymph % (Auto) [place] % (Auto) Lymph # (Auto) [place] # (Auto) Seg Neutrophils % Seg Neuts % (Manual) Lymphocytes % (Manual) Nucleated RBC % Seg Neutrophils # Seg Neutrophils # Man Monocytes # (Manual) PT INR D-Dimer Heparin Anti-Xa Level Sodium 146 H D Chloride Carbon Dioxide 21 L BUN 29 H 36 H Creatinine 2.2 H 2.5 H Glucose 137 H 142 H POC Glucose 115 H Calcium 7.6 L 6.9 L TIBC Ferritin AST 48 H Lactate Dehydrogenase Troponin T C-Reactive Protein Total Protein 6.2 L Albumin 2.9 L 2.4 L Triglycerides HDL Cholesterol Urine WBC (Auto) Coronavirus (PCR) Crossmatch 01/04/21 01/04/21 01/05/21 17:25 23:23 05:45 WBC 12.8 H RBC 2.31 L Hgb 6.6 L D Hct 20.0 L D MCHC RDW 18.0 H Lymph % (Auto) 6.8 L [place] % (Auto) Lymph # (Auto) 0.9 L [place] # (Auto) 0.9 H Seg Neutrophils % 86.0 H Seg Neuts % (Manual) Lymphocytes % (Manual) Nucleated RBC % Seg Neutrophils # 11.0 H Seg Neutrophils # Man Monocytes # (Manual) PT INR D-Dimer Heparin Anti-Xa Level Sodium 148 H Chloride 110.4 H Carbon Dioxide BUN 47 H Creatinine 2.9 H Glucose 125 H POC Glucose 214 H Calcium 6.7 L TIBC Ferritin AST Lactate Dehydrogenase Troponin T C-Reactive Protein Total Protein 5.8 L Albumin 2.6 L Triglycerides HDL Cholesterol Urine WBC (Auto) Coronavirus (PCR) Crossmatch 01/05/21 01/05/21 01/05/21 12:25 15:30 15:30 WBC 23.4 H RBC 1.95 L Hgb 5.5 L* Hct 16.9 L* MCHC RDW 17.7 H Lymph % (Auto) [place] % (Auto) Lymph # (Auto) [place] # (Auto) Seg Neutrophils % Seg Neuts % (Manual) Lymphocytes % (Manual) Nucleated RBC % Seg Neutrophils # Seg Neutrophils # Man Monocytes # (Manual) PT INR D-Dimer Heparin Anti-Xa Level Sodium Chloride Carbon Dioxide BUN Creatinine Glucose POC Glucose Calcium TIBC 173 L Ferritin AST Lactate Dehydrogenase Troponin T C-Reactive Protein Total Protein Albumin Triglycerides HDL Cholesterol Urine WBC (Auto) Coronavirus (PCR) Crossmatch See Detail 01/05/21 01/05/21 01/05/21 15:30 15:30 22:49 WBC RBC Hgb 8.0 L Hct 23.8 L D MCHC RDW Lymph % (Auto) [place] % (Auto) Lymph # (Auto) [place] # (Auto) Seg Neutrophils % Seg Neuts % (Manual) Lymphocytes % (Manual) Nucleated RBC % Seg Neutrophils # Seg Neutrophils # Man Monocytes # (Manual) PT 15.1 H INR 1.14 H D-Dimer Heparin Anti-Xa Level Sodium Chloride Carbon Dioxide BUN Creatinine Glucose POC Glucose Calcium TIBC Ferritin 375.6 H AST Lactate Dehydrogenase Troponin T C-Reactive Protein Total Protein Albumin Triglycerides HDL Cholesterol Urine WBC (Auto) Coronavirus (PCR) Crossmatch 01/06/21 01/06/21 01/06/21 09:10 09:10 09:12 WBC 18.0 H RBC Hgb Hct MCHC RDW 16.2 H Lymph % (Auto) [place] % (Auto) Lymph # (Auto) [place] # (Auto) Seg Neutrophils % Seg Neuts % (Manual) 80.0 H Lymphocytes % (Manual) 10.0 L Nucleated RBC % 4.0 H Seg Neutrophils # Seg Neutrophils # Man 14.4 H Monocytes # (Manual) 1.3 H PT INR D-Dimer 845.89 H Heparin Anti-Xa Level Sodium 151 H Chloride 113.1 H Carbon Dioxide 21 L BUN 42 H Creatinine 2.5 H Glucose 112 H POC Glucose Calcium 7.3 L TIBC Ferritin AST 59 H Lactate Dehydrogenase 493 H Troponin T C-Reactive Protein 2.60 H Total Protein Albumin 3.2 L Triglycerides HDL Cholesterol Urine WBC (Auto) Coronavirus (PCR) Crossmatch 01/07/21 01/07/21 05:25 05:25 WBC 15.4 H RBC Hgb Hct MCHC 35 H RDW 16.3 H Lymph % (Auto) [place] % (Auto) Lymph # (Auto) [place] # (Auto) Seg Neutrophils % 78.3 H Seg Neuts % (Manual) Lymphocytes % (Manual) Nucleated RBC % Seg Neutrophils # 12.0 H Seg Neutrophils # Man Monocytes # (Manual) PT INR D-Dimer Heparin Anti-Xa Level Sodium 150 H Chloride 108.4 H Carbon Dioxide BUN 38 H Creatinine 2.0 H Glucose POC Glucose Calcium 7.8 L TIBC Ferritin AST Lactate Dehydrogenase Troponin T C-Reactive Protein Total Protein Albumin Triglycerides HDL Cholesterol Urine WBC (Auto) Coronavirus (PCR) Crossmatch
--- NOTE | 2021-01-07 12:26 | Progress Note ---
Assessment and Plan Cultures: Blood culture 01/01/2021 pending SARS CoV2 PCR positive Assessment: 55-year-old female with history of hypertension, previous stroke, admitted on 01/01/2021 secondary to altered mental status for 4 days per family members: #Severe COVID pneumonia +/- bacterial pneumonia: CXR with left-sided pneumonia. Infllammatory markers elevated. D-dimer 2078. CRP 2.5. Ferritin 320. Procalcitonin elevated at 0.7 in the setting of FAVIOLA. VQ scan low probability for PE. #Acute hypoxemic respiratory failure: To 70%, currently on 7 L nasal cannula. #UTI: Urinalysis consistent with UTI. #FAVIOLA: Worsening. #Encephalopathy: History of CVA ?acute CVA +/- COVID. CT with left basal ganglia density. #Hypertension uncontrolled. #Subpectoral hematoma Recommendations: -Continue dexamethasone 6 mg IV/PO daily for 10 days -Remdesivir has been held due to renal failure. -Monitor inflammatory markers - ferritin, Ddimer, CRP, LDH -Monitor liver function test on Remdesivir -Continue anticoagulation per System Protocol -Prone positioning as possible -Completed empiric antibiotics. Mara St MD [facility] ([facility] O: [phone] F: [phone] Subjective Date of service: 01/07/21 Principal diagnosis: faviola Interval history: Afebrile, white count improving at 15.4. Cultures remain negative. Currently on 7 L nasal cannula. Imaging personally reviewed: Brain MRI: Chronic white matter migraines. Acute ischemic injury in the left centrum semiovale Objective - Exam Narrative Exam: Physical exam deferred to reduce risk of transmission of COVID-19. Please refer to primary team's note. - Constitutional Vitals: Vital Signs Temp Pulse Resp BP Pulse Ox 98.6 F 110 H 18 152/96 98 01/07/21 05:07 01/07/21 05:07 01/07/21 05:07 01/07/21 05:07 01/07/21 09:37 Temperature -Last 24 Hours Temperature 98.6 F Temperature 98.2 F Temperature 98.4 F - Labs CBC & Chem 7: 01/07/21 05:25 01/07/21 05:25 Labs: Abnormal lab results 01/07/21 01/07/21 Range/Units 05:25 05:25 WBC 15.4 H (4.5-11.0) K/mm3 MCHC 35 H (30-34) % RDW 16.3 H (13.2-15.2) % Seg Neutrophils % 78.3 H (40.0-70.0) % Seg Neutrophils # 12.0 H (1.8-7.7) K/mm3 Sodium 150 H (137-145) mmol/L Chloride 108.4 H (98-107) mmol/L BUN 38 H (7-17) mg/dL Creatinine 2.0 H (0.6-1.2) mg/dL Calcium 7.8 L (8.4-10.2) mg/dL
[2021-01-07] MEDS: dexAMETHasone 4 MG/ML VIAL IV SCH (12:33)
[2021-01-07] MEDS ORDERED: D5W/0.45% NACL 1,000 ML IV SCH (13:00)
--- NOTE | 2021-01-07 13:13 | Progress Note ---
Assessment and Plan Impression: * faviola * sepsis * acute hypoxic resp failure * ams * metabolic acidosis * Bilateral PNA * Covid PNA * UTI with sepsis * anemia * hypernatremia Plan: * no emergent indication for [place]ULLER at this time, however concerning trend * cr has improved today, 1.5->2.2->2.5->2.9->2.5->2.0, likely worsened due to anemia but improved now * note hemoglobin 6.6->5.5->8.0->12 s/p PRBCs, previously 13, note hematoma * FAVIOLA likely multifactorial, hypoperfusion due to sepsis, ATN with COVID * keep MAP>65, BP now stable, back on nifedipine * abx per primary team, note initiation of remdesivir * continue IVF for renal perfusion as tolerated, on D5 1/2NS * calcium noted, replete prn * strict i/os and daily lytes * avoid nephrotoxins Subjective Date of service: 01/07/21 Principal diagnosis: faviola Interval history: labs and chart reviewed events noted Objective - Exam Narrative Exam: primary team exam noted, exam deferred for preservation of PPE - Vital Signs Vital signs: Vital Signs - 12hr 01/07/21 01/07/21 01/07/21 02:00 05:07 09:37 Temperature 98.6 F Pulse Rate 110 H Respiratory 18 Rate Blood Pressure 152/96 O2 Sat by Pulse 94 93 98 Oximetry - Lab 01/07/21 05:25 01/07/21 05:25 Most recent lab results Calcium 7.8 mg/dL (8.4-10.2) L 01/07/21 05:25 Medications & Allergies - Medications Allergies/Adverse Reactions: Allergies Sulfa (Sulfonamide Antibiotics) Allergy (Verified 01/02/21 00:42) Unknown Home Medications: Home Medications Medication Instructions Recorded Confirmed Last Taken Type Aspirin [Aspirin BABY CHEW TAB] 81 mg PO QDAY 01/02/21 01/02/21 Unknown History carvediloL [Coreg] 12.5 mg PO BID 01/02/21 01/02/21 Unknown History donepeziL [Aricept] 10 mg PO QHS 01/02/21 01/02/21 Unknown History hydrALAZINE [Apresoline TAB] 100 mg PO Q8HR 01/02/21 01/02/21 Unknown History Active Medications: Generic Name Dose Route Start Last Admin Trade Name Freq PRN Reason Stop Dose Admin Acetaminophen 650 mg 01/02/21 01:40 Acetaminophen 325 Mg Tab PO Q4H PRN Pain, Mild (1-3) Atorvastatin Calcium 40 mg 01/02/21 22:00 01/06/21 21:44 Atorvastatin 40 Mg Tab PO 40 mg QHS BELTRAN Administration Bisacodyl 10 mg 01/02/21 01:40 Bisacodyl 10 Mg Rect Supp NJ QDAY PRN Constipation Dexamethasone 6 mg 01/03/21 10:00 01/07/21 12:33 Dexamethasone 4 Mg/Ml Vial IV 01/12/21 10:01 6 mg Q24HR BELTRAN Administration REMDESIVIR 100 mg/ Sodium 250 mls @ 500 mls/hr 01/04/21 21:00 01/07/21 03:08 Chloride IV 01/07/21 21:29 Not Given Q24HR@2100 BELTRAN Dextrose/Sodium Chloride 1,000 mls @ 75 mls/hr 01/07/21 13:00 D5/0.45ns IV DIRECT BELTRAN Metoclopramide HCl 5 mg 01/02/21 01:40 Metoclopramide 10 Mg Tab PO Q6H PRN Nausea And Vomiting Morphine Sulfate 2 mg 01/02/21 01:40 Morphine 2 Mg/1 Ml Inj IV Q4H PRN Pain, Moderate (4-6) Morphine Sulfate 4 mg 01/02/21 01:40 01/04/21 14:56 Morphine 4 Mg/1 Ml Inj IV 4 mg Q4H PRN Administration Pain , Severe (7-10) Nifedipine 60 mg 01/02/21 13:00 01/07/21 10:57 Nifedipine Xl 60 Mg Tab PO 60 mg BID BELTRAN Administration Ondansetron HCl 4 mg 01/02/21 01:40 Ondansetron 4 Mg/2 Ml Inj IV Q8H PRN Nausea And Vomiting Pantoprazole Sodium 40 mg 01/07/21 10:00 01/07/21 12:33 Pantoprazole 40 Mg Inj IV 40 mg QDAY BELTRAN Administration Promethazine HCl 25 mg 01/02/21 01:40 Promethazine 25 Mg Rect Supp NJ Q6H PRN Nausea And Vomiting Sodium Chloride 10 ml 01/02/21 10:00 01/07/21 12:33 Sodium Chloride 0.9% 10 Ml Flush Syringe IV 10 ml BID BELTRAN Administration Sodium Chloride 10 ml 01/02/21 01:40 Sodium Chloride 0.9% 10 Ml Flush Syringe IV PRN PRN LINE FLUSH Sodium Chloride 50 ml 01/03/21 13:30 01/07/21 03:07 Sodium Chloride 0.9% 50 Ml Ivpb IV 01/07/21 21:01 Not Given Q24HR@2100 BELTRAN
--- NOTE | 2021-01-07 13:26 | Progress Note ---
Assessment and Plan - Patient Problems (1) Hematoma (nontraumatic) of breast Current Visit: Yes Status: Acute Plan to address problem: 1) Stable. Repeat CBC tomorrow. Would hold ASA indefinitely. Subjective Date of service: 01/07/21 Patient Reports: Positive: no new complaints Objective Vital Signs - 12hr 01/07/21 01/07/21 01/07/21 02:00 05:07 09:37 Temperature 98.6 F Pulse Rate 110 H Respiratory 18 Rate Blood Pressure 152/96 O2 Sat by Pulse 94 93 98 Oximetry - Respiratory other (No change in right chest exam) - Labs 01/07/21 05:25 01/07/21 05:25 Diabetes panel 01/07/21 Range/Units 05:25 Sodium 150 H (137-145) mmol/L Potassium 3.6 (3.6-5.0) mmol/L Chloride 108.4 H (98-107) mmol/L Carbon Dioxide 23 (22-30) mmol/L BUN 38 H (7-17) mg/dL Creatinine 2.0 H (0.6-1.2) mg/dL Glucose 74 (65-100) mg/dL Calcium 7.8 L (8.4-10.2) mg/dL Calcium panel 01/07/21 Range/Units 05:25 Calcium 7.8 L (8.4-10.2) mg/dL Pituitary panel 01/07/21 Range/Units 05:25 Sodium 150 H (137-145) mmol/L Potassium 3.6 (3.6-5.0) mmol/L Chloride 108.4 H (98-107) mmol/L Carbon Dioxide 23 (22-30) mmol/L BUN 38 H (7-17) mg/dL Creatinine 2.0 H (0.6-1.2) mg/dL Glucose 74 (65-100) mg/dL Calcium 7.8 L (8.4-10.2) mg/dL Adrenal panel 01/07/21 Range/Units 05:25 Sodium 150 H (137-145) mmol/L Potassium 3.6 (3.6-5.0) mmol/L Chloride 108.4 H (98-107) mmol/L Carbon Dioxide 23 (22-30) mmol/L BUN 38 H (7-17) mg/dL Creatinine 2.0 H (0.6-1.2) mg/dL Glucose 74 (65-100) mg/dL Calcium 7.8 L (8.4-10.2) mg/dL
[2021-01-07] MEDS ORDERED: SODIUM CHLORIDE 0.9% 500 ML IVPB IV ONE (16:28)
[2021-01-07] MEDS ORDERED: SODIUM CHLORIDE 0.9% 500 ML 500 ML IV SCH ×2 (17:00→18:00)
[2021-01-08 06:34] LABS: Hematocrit 38.4 % (30.3-42.9); Hemoglobin 12.9 gm/dl (10.1-14.3); Mean Corpuscular HGB Conc 34 % (30-34); Mean Corpuscular Volume 87 fl (79-97); Platelet Count 277 K/mm3 (140-440); Red Blood Count 4.43 M/mm3 (3.65-5.03); Red Cell Distribution Width 16.5 % (13.2-15.2)
[2021-01-08 06:38] LABS: Calcium 7.1 mg/dL (8.4-10.2)
--- NOTE | 2021-01-08 07:27 | Progress Note ---
Assessment and Plan Assessment and plan: Assessment and plan: CVA, likely. CT of the head with left basal ganglia changes. For MRI Sepsis. Present on admission. Patient meets criteria given the tachycardia, tachypnea and diagnosis of UTI/pneumonia. Bilateral pneumonia. COVID-19 pneumonia. Acute kidney injury. Etiology secondary to ATN/sepsis. UTI. Toxic metabolic encephalopathy. 01/02/2021. Altered mentation is secondary to toxic metabolic encephalopathy from sepsis/pneumonia/UTI +/-CVA. CT scan of the head reveals several findings including: Suspicious hypodensity within the left basal ganglia which could be secondary to acute infarct. MRI recommended for further evaluation. There are several small lacunar infarcts identified within the right basal ganglia. Neurology consultation when available. Patient will be continued on IV antibiotics. Patient currently undergoing VQ scan for elevated D-dimer to rule out PE. Follow-up Covid PCR. Total visit time equals 35 minutes with greater than 50% spent on coordination of care and counseling. 01/03/2021. Await MRI brain. Echocardiogram reveals left ventricular size normal with normal systolic function. EF 50 to 60%. Mild diastolic dys function. No PFO. Creatinine has improved to 1.5. Nephrology following. Covid PCR positive on 01/02. Continue IV antibiotics. Follow-up blood cultures. Check procalcitonin. Continue dexamethasone. VQ scan is negative for PE. Therefore, we will discontinue IV heparin drip. 01/04/2021. Continue dexamethasone 6 mg IV for 10 days. ID initiated remdesivir yesterday. Continue to trend inflammatory markers of ferritin, D-dimer, CRP and LDH. Initial markers elevated with D-dimer 2078. CRP 2.5. Ferritin 320. Continue DVT prophylactic anticoagulation. Continue ceftriaxone and azithromy gabriel given the elevated procalcitonin. Continue to monitor creatinine, strict i/os and daily lytes, avoid nephrotoxins. Await MRI brain to further assess abnormal CT scan and CVA. Neurology consultation pending 01/05/21 patient with Covid-19 pneumonia. Hgb 5.5 today, was 6.6 yesterday and 13.6 about 3 days ago. No obvious bleeding. Obtain stat PT,INR,Iron. stool occult blood. Transfuse 3 Units PRBC. NPO. Protonix drip. I consulted GI and discussed with Dr. Grijalva. Obtain CT Abd/pelvis to r/o hematoma. I also discussed with Dr. Zelaya and he agrees to hold Aspirin because of sudden large Hgb drop. Patient cannot give history For MRI Brain to r/o stroke 01/06/21 Patient with Covid-19 pneumonia with acute respiratory failure. he had Hgb 5,5 yesterday from 13.6 just 3 days earlier. Workup revealed subpectoral hematoma right chest. She was transfused 3 Units PRBC, now Hgb 12. Surgeon following. No known trauma. Patient cannot give history, has aphasia from poss stroke. CT Head sugg several lacunar infarcts both basal ganglia. MRI Brain to r/o stroke pending. Continue to monitor H/H FAVIOLA followed by Nephrology 01/07/21 Hypernatremia improved from 151 to 150 on D5NS. Will change IV fluids to D5 half-normal saline at the same rate. On 7 L of oxygen for acute hypoxic respiratory failure due to COVID-19 pneumonia. Will wean off oxygen as tolerated Hb trending up. Continue to hold ASA. Surgeon, nephrology and ID input appreciated. Still on remdesivir and dexamethasone. 01/08/2021. Hyponatremia has resolved. Will DC IV fluid. No significant change in creatinine for the last few days and nephrology is on board. Leukocytosis has improved. Completed remdesivir on 01/07/2021. Still on dexamethasone started on 01/03/2021. On 7 L oxygen with O2 sat of 91% and will wean off as tolerated. Surgeon has recommended to hold aspirin indefinitely. History Interval history: No new complaints. No shortness of breath, cough, fever, chills. Hospitalist Physical - Constitutional Vitals: Temp Pulse Resp BP Pulse Ox 97.9 F 97 H 20 142/85 91 01/08/21 04:55 01/08/21 04:55 01/08/21 04:55 01/08/21 04:55 01/08/21 04:55 General appearance: Present: no acute distress, well-nourished - EENT Eyes: Present: PERRL, EOM intact - Neck Neck: Present: supple - Respiratory Respiratory effort: normal - Cardiovascular Rhythm: regular Heart Sounds: Present: S1 & S2 - Extremities Extremities: No edema - Abdominal General gastrointestinal: soft, non-tender, non-distended, normal bowel sounds - Integumentary Integumentary: Present: clear, warm, dry HEART Score - HEART Score Troponin: Troponin T 0.038 ng/mL (0.00-0.029) H 01/02/21 02:01 Results - Labs CBC & Chem 7: 01/08/21 05:38 01/08/21 05:38 Labs: Laboratory Last Values WBC 14.6 K/mm3 (4.5-11.0) H 01/08/21 05:38 RBC 4.43 M/mm3 (3.65-5.03) 01/08/21 05:38 Hgb 12.9 gm/dl (10.1-14.3) 01/08/21 05:38 Hct 38.4 % (30.3-42.9) 01/08/21 05:38 MCV 87 fl (79-97) 01/08/21 05:38 MCH 29 pg (28-32) 01/08/21 05:38 MCHC 34 % (30-34) 01/08/21 05:38 RDW 16.5 % (13.2-15.2) H 01/08/21 05:38 Plt Count 277 K/mm3 (140-440) 01/08/21 05:38 Lymph % (Auto) 16.7 % (13.4-35.0) 01/07/21 05:25 [place] % (Auto) 4.9 % (0.0-7.3) 01/07/21 05:25 Eos % (Auto) 0.0 % (0.0-4.3) 01/07/21 05:25 Baso % (Auto) 0.1 % (0.0-1.8) 01/07/21 05:25 Lymph # (Auto) 2.6 K/mm3 (1.2-5.4) 01/07/21 05:25 [place] # (Auto) 0.8 K/mm3 (0.0-0.8) 01/07/21 05:25 Eos # (Auto) 0.0 K/mm3 (0.0-0.4) 01/07/21 05:25 Baso # (Auto) 0.0 K/mm3 (0.0-0.1) 01/07/21 05:25 Add Manual Diff Complete 01/06/21 09:12 Total Counted 100 01/06/21 09:12 Seg Neutrophils % 78.3 % (40.0-70.0) H 01/07/21 05:25 Seg Neuts % (Manual) 80.0 % (40.0-70.0) H 01/06/21 09:12 Band Neutrophils % 2.0 % 01/06/21 09:12 Lymphocytes % (Manual) 10.0 % (13.4-35.0) L 01/06/21 09:12 Monocytes % (Manual) 7.0 % (0.0-7.3) 01/06/21 09:12 Metamyelocytes % 1.0 % 01/06/21 09:12 Nucleated RBC % 4.0 % (0.0-0.9) H 01/06/21 09:12 Seg Neutrophils # 12.0 K/mm3 (1.8-7.7) H 01/07/21 05:25 Seg Neutrophils # Man 14.4 K/mm3 (1.8-7.7) H 01/06/21 09:12 Band Neutrophils # 0.4 K/mm3 01/06/21 09:12 Lymphocytes # (Manual) 1.8 K/mm3 (1.2-5.4) 01/06/21 09:12 Abs React Lymphs (Man) 0.0 K/mm3 01/06/21 09:12 Monocytes # (Manual) 1.3 K/mm3 (0.0-0.8) H 01/06/21 09:12 Eosinophils # (Manual) 0.0 K/mm3 (0.0-0.4) 01/06/21 09:12 Basophils # (Manual) 0.0 K/mm3 (0.0-0.1) 01/06/21 09:12 Metamyelocytes # 0.2 K/mm3 01/06/21 09:12 Myelocytes # 0.0 K/mm3 01/06/21 09:12 Promyelocytes # 0.0 K/mm3 01/06/21 09:12 Blast Cells # 0.0 K/mm3 01/06/21 09:12 WBC Morphology Not Reportable 01/06/21 09:12 Hypersegmented Neuts Not Reportable 01/06/21 09:12 Hyposegmented Neuts Not Reportable 01/06/21 09:12 Hypogranular Neuts Not Reportable 01/06/21 09:12 Smudge Cells Not Reportable 01/06/21 09:12 Toxic Granulation Not Reportable 01/06/21 09:12 Toxic Vacuolation Not Reportable 01/06/21 09:12 Dohle Bodies Not Reportable 01/06/21 09:12 Pelger-Huet Anomaly Not Reportable 01/06/21 09:12 Lenin Rods Not Reportable 01/06/21 09:12 Platelet Estimate Consistent w auto 01/06/21 09:12 Clumped Platelets Not Reportable 01/06/21 09:12 Plt Clumps, EDTA Not Reportable 01/06/21 09:12 Large Platelets Not Reportable 01/06/21 09:12 Giant Platelets Not Reportable 01/06/21 09:12 Platelet Satelliting Not Reportable 01/06/21 09:12 Plt Morphology Comment Not Reportable 01/06/21 09:12 RBC Morphology Not Reportable 01/06/21 09:12 Dimorphic RBCs Not Reportable 01/06/21 09:12 Polychromasia Not Reportable 01/06/21 09:12 Hypochromasia Not Reportable 01/06/21 09:12 Poikilocytosis Not Reportable 01/06/21 09:12 Anisocytosis 1+ 01/06/21 09:12 Microcytosis Not Reportable 01/06/21 09:12 Macrocytosis Not Reportable 01/06/21 09:12 Spherocytes Not Reportable 01/06/21 09:12 Pappenheimer Bodies Not Reportable 01/06/21 09:12 Sickle Cells Not Reportable 01/06/21 09:12 Target Cells Not Reportable 01/06/21 09:12 Tear Drop Cells Not Reportable 01/06/21 09:12 Ovalocytes Not Reportable 01/06/21 09:12 Helmet Cells Not Reportable 01/06/21 09:12 [place] Bodies Not Reportable 01/06/21 09:12 Carman Rings Not Reportable 01/06/21 09:12 [place] Cells Not Reportable 01/06/21 09:12 Bite Cells Not Reportable 01/06/21 09:12 Crenated Cell Not Reportable 01/06/21 09:12 Elliptocytes Not Reportable 01/06/21 09:12 Acanthocytes (Spur) Not Reportable 01/06/21 09:12 Rouleaux Not Reportable 01/06/21 09:12 Hemoglobin C Crystals Not Reportable 01/06/21 09:12 Schistocytes Not Reportable 01/06/21 09:12 Malaria parasites Not Reportable 01/06/21 09:12 Spike Bodies Not Reportable 01/06/21 09:12 Hem Pathologist Commnt No 01/06/21 09:12 PT 15.1 Sec. (12.2-14.9) H 01/05/21 15:30 INR 1.14 (0.87-1.13) H 01/05/21 15:30 APTT 24.7 Sec. (24.2-36.6) 01/05/21 15:30 D-Dimer 845.89 ng/mlDDU (0-234) H 01/06/21 09:10 Heparin Anti-Xa Level 1.32 U.I./ml (0.3-0.7) H 01/02/21 19:14 Sodium 143 mmol/L (137-145) 01/08/21 05:38 Potassium 3.7 mmol/L (3.6-5.0) 01/08/21 05:38 Chloride 105.7 mmol/L (98-107) 01/08/21 05:38 Carbon Dioxide 21 mmol/L (22-30) L 01/08/21 05:38 Anion Gap 20 mmol/L 01/08/21 05:38 BUN 41 mg/dL (7-17) H 01/08/21 05:38 Creatinine 2.1 mg/dL (0.6-1.2) H 01/08/21 05:38 Estimated GFR 29 ml/min 01/08/21 05:38 BUN/Creatinine Ratio 20 % 01/08/21 05:38 Glucose 95 mg/dL (65-100) 01/08/21 05:38 POC Glucose 214 mg/dL (70-105) H 01/04/21 17:25 Lactic Acid 1.80 mmol/L (0.7-2.0) 01/01/21 23:33 Calcium 7.1 mg/dL (8.4-10.2) L 01/08/21 05:38 Iron 41 ug/dL (37-170) 01/05/21 15:30 TIBC 173 mcg/dL (250-450) L 01/05/21 15:30 Ferritin 375.6 ng/mL (10.0-200.0) H 01/05/21 15:30 Total Bilirubin 0.50 mg/dL (0.1-1.2) 01/06/21 09:10 AST 59 units/L (5-40) H 01/06/21 09:10 ALT 23 units/L (7-56) 01/06/21 09:10 Alkaline Phosphatase 55 units/L (35-129) 01/06/21 09:10 Lactate Dehydrogenase 493 units/L (91-180) H 01/06/21 09:10 Troponin T 0.038 ng/mL (0.00-0.029) H 01/02/21 02:01 C-Reactive Protein 2.60 mg/dL (0.00-1.30) H 01/06/21 09:10 NT-Pro-B Natriuret Pep 398.4 pg/mL (0-900) 01/01/21 23:33 Total Protein 7.2 g/dL (6.3-8.2) D 01/06/21 09:10 Albumin 3.2 g/dL (3.9-5) L 01/06/21 09:10 Albumin/Globulin Ratio 0.8 % 01/06/21 09:10 Triglycerides 284 mg/dL (2-149) H 01/01/21 23:33 Cholesterol 151 mg/dL (50-199) 01/01/21 23:33 LDL Cholesterol Direct 65 mg/dL (50-130) 01/01/21 23:33 HDL Cholesterol 20 mg/dL (40-59) L 01/01/21 23:33 Cholesterol/HDL Ratio 7.55 % 01/01/21 23:33 Procalcitonin 0.71 ng/mL (<0.15) 01/02/21 05:37 Urine Color Izzy (Yellow) 01/02/21 00:15 Urine Turbidity Cloudy (Clear) 01/02/21 00:15 Urine pH 6.0 (5.0-7.0) 01/02/21 00:15 Ur Specific [place] 1.016 (1.003-1.030) 01/02/21 00:15 Urine Protein 100 mg/dl mg/dL (Negative) 01/02/21 00:15 Urine Glucose (UA) Neg mg/dL (Negative) 01/02/21 00:15 Urine Ketones Neg mg/dL (Negative) 01/02/21 00:15 Urine Blood Lg (Negative) 01/02/21 00:15 Urine Nitrite Neg (Negative) 01/02/21 00:15 Urine Bilirubin Neg (Negative) 01/02/21 00:15 Urine Urobilinogen 4.0 mg/dL (<2.0) 01/02/21 00:15 Ur Leukocyte Esterase Mod (Negative) 01/02/21 00:15 Urine WBC (Auto) 88.0 /HPF (0.0-6.0) H 01/02/21 00:15 Urine RBC (Auto) 56.0 /HPF (0.0-6.0) 01/02/21 00:15 U Epithel Cells (Auto) 2.0 /HPF (0-13.0) 01/02/21 00:15 Urine WBC Clumps 1+ /HPF 01/02/21 00:15 Urine Mucus Few /HPF 01/02/21 00:15 Urine Yeast (Budding) Few /HPF 01/02/21 00:15 Coronavirus (PCR) Positive (Negative) A 01/02/21 Unknown Blood Type A POSITIVE 01/05/21 15:30 Antibody Screen Negative 01/05/21 15:30 Crossmatch See Detail 01/05/21 15:30 Microbiology: Microbiology 01/01/21 23:33 Peripheral/Venous Blood Culture - Final NO GROWTH AFTER 5 DAYS 01/01/21 23:23 Peripheral/Venous Blood Culture - Final NO GROWTH AFTER 5 DAYS Marie/IV: Voiding Method Incontinent Active Medications - Current Medications Current Medications: Generic Name Dose Route Start Last Admin Trade Name Freq PRN Reason Stop Dose Admin Acetaminophen 650 mg 01/02/21 01:40 Acetaminophen 325 Mg Tab PO Q4H PRN Pain, Mild (1-3) Atorvastatin Calcium 40 mg 01/02/21 22:00 01/07/21 22:04 Atorvastatin 40 Mg Tab PO 40 mg QHS BELTRAN Administration Bisacodyl 10 mg 01/02/21 01:40 Bisacodyl 10 Mg Rect Supp RI QDAY PRN Constipation Dexamethasone 6 mg 01/03/21 10:00 01/07/21 12:33 Dexamethasone 4 Mg/Ml Vial IV 01/12/21 10:01 6 mg Q24HR BELTRAN Administration Dextrose/Sodium Chloride 1,000 mls @ 75 mls/hr 01/07/21 13:00 D5/0.45ns IV DIRECT BELTRAN Metoclopramide HCl 5 mg 01/02/21 01:40 Metoclopramide 10 Mg Tab PO Q6H PRN Nausea And Vomiting Morphine Sulfate 2 mg 01/02/21 01:40 01/07/21 22:05 Morphine 2 Mg/1 Ml Inj IV 2 mg Q4H PRN Administration Pain, Moderate (4-6) Morphine Sulfate 4 mg 01/02/21 01:40 01/04/21 14:56 Morphine 4 Mg/1 Ml Inj IV 4 mg Q4H PRN Administration Pain , Severe (7-10) Nifedipine 60 mg 01/02/21 13:00 01/07/21 22:04 Nifedipine Xl 60 Mg Tab PO 60 mg BID BELTRAN Administration Ondansetron HCl 4 mg 01/02/21 01:40 Ondansetron 4 Mg/2 Ml Inj IV Q8H PRN Nausea And Vomiting Pantoprazole Sodium 40 mg 01/07/21 10:00 01/07/21 12:33 Pantoprazole 40 Mg Inj IV 40 mg QDAY BELTRAN Administration Promethazine HCl 25 mg 01/02/21 01:40 Promethazine 25 Mg Rect Supp RI Q6H PRN Nausea And Vomiting Sodium Chloride 10 ml 01/02/21 10:00 01/07/21 22:05 Sodium Chloride 0.9% 10 Ml Flush Syringe IV 10 ml BID BELTRAN Administration Sodium Chloride 10 ml 01/02/21 01:40 Sodium Chloride 0.9% 10 Ml Flush Syringe IV PRN PRN LINE FLUSH Nutrition/Malnutrition Assess - Dietary Evaluation Nutrition/Malnutrition Findings: Nutrition Notes Start: 01/02/21 10:21 Freq: Status: Active Protocol: Document 01/02/21 10:21 GB (Rec: 01/02/21 10:29 GB [id number]) Nutrition Notes Need for Assessment generated from: MD Order Initial or Follow up Assessment Current Diagnosis Hypertension,Stroke Other Pertinent Diagnosis Consult for diet education Current Diet NPO x1 Labs/Tests 01/01: Na 147, BUN 37, creatinine 2.3, Tg 284 01/02: ferritin 317 (slight improvement) Pertinent Medications azithromycin Height 5 ft 1 in Weight 63.503 kg [place] Body Weight (kg) 47.72 BMI 26.4 Weight change and time frame No reported weight change. Weight Status Overweight Subjective/Other Information Pt in ER holding for admit to room. Education to be reviewed following room admit. Percent of energy/protein needs met: 0% at this time with NPOx1 day Burn Absent Trauma Absent GI Symptoms None Food Allergy No Skin Integrity/Comment No complications reported Current % PO Other Minimum of two criteria No #1 Nutrition Diagnosis Food and nutrition-related knowledge deficit Comments: admitted for UTI/AMS Etiology consult for diet education As Evidenced by Signs and Symptoms education relating to history of HTN/stroke. Is patient on ventilator? No Is Patient Ambulatory and/or Out of Bed No REE-([place]-St. Jeor-confined to bed) 1393.596 Kcal/Kg value to use for calculation 22 Approximate Energy Requirements Using 1397 kcal/Kg Calculation Used for Recommendations Kcal/kg Additional Notes Protein 1-1.2 g/kg @ 64k- 77g Fluids: 1 ml/kcal or per MD Nutrition Intervention Change Diet Order: NPO x 1, once medically feasible advance diet to low sodium/heart healthy Nutrition Support: n/a Add Supplement/Snack (indicate name/kcal n/a /protein ) Goal #1 Education to be provided to pt post admittance to room. Goal #2 Diet advanced to low sodium/ heart healthy Anticipated Discharge Needs: no specialized nutrition instructions at this time Follow-Up By: 01/12/21 Additional Comments f/u: provide HTN/stroke nutrition therapy educatio, if pt d/c prior to f/u: pt can access RD outpatient via their insurance RD program or call [facility] RD for more information.
--- NOTE | 2021-01-08 10:09 | Progress Note ---
Assessment and Plan Cultures: Blood culture 01/01/2021 pending SARS CoV2 PCR positive Assessment: 55-year-old female with history of hypertension, previous stroke, admitted on 01/01/2021 secondary to altered mental status for 4 days per family members: #Severe COVID pneumonia +/- bacterial pneumonia: CXR with left-sided pneumonia. Infllammatory markers elevated. D-dimer 2078. CRP 2.5. Ferritin 320. Procalcitonin elevated at 0.7 in the setting of FAVIOLA. VQ scan low probability for PE. #Acute hypoxemic respiratory failure: To 70%, currently on 7 L nasal cannula. #UTI: Urinalysis consistent with UTI. #FAVIOLA: Worsening. #Encephalopathy: History of CVA ?acute CVA +/- COVID. CT with left basal ganglia density. #Hypertension uncontrolled. #Subpectoral hematoma Recommendations: -Continue dexamethasone 6 mg IV/PO daily for 10 days -Remdesivir has been held due to renal failure. Renal failure continues to hover around 30mL/min, stop remdesivir as likely no benefit by the time she has renal recovery. -Monitor inflammatory markers - ferritin, Ddimer, CRP, LDH -Continue anticoagulation per System Protocol -Prone positioning as possible -Completed empiric antibiotics. ID will sign off. Please call with questions. Mara St MD [facility] ([facility] O: [phone] F: [phone] Subjective Date of service: 01/08/21 Principal diagnosis: faviola Interval history: Afebrile, white count improving. On 7L NC. Objective - Exam Narrative Exam: Physical exam deferred to reduce risk of transmission of COVID-19. Please refer to primary team's note. - Constitutional Vitals: Vital Signs Temp Pulse Resp BP Pulse Ox 97.9 F 97 H 20 142/85 91 01/08/21 04:55 01/08/21 04:55 01/08/21 04:55 01/08/21 04:55 01/08/21 04:55 Temperature -Last 24 Hours Temperature 97.9 F Temperature 99.5 F Temperature 98.6 F Temperature 98.8 F Temperature 98.6 F Temperature 98.8 F Temperature 98.8 F Temperature 98.7 F Temperature 97.7 F Temperature 98.6 F - Labs CBC & Chem 7: 01/08/21 05:38 01/08/21 05:38 Labs: Abnormal lab results 01/05/21 01/08/21 01/08/21 Range/Units 15:30 05:38 05:38 WBC 14.6 H (4.5-11.0) K/mm3 RDW 16.5 H (13.2-15.2) % Carbon Dioxide 21 L (22-30) mmol/L BUN 41 H (7-17) mg/dL Creatinine 2.1 H (0.6-1.2) mg/dL Calcium 7.1 L (8.4-10.2) mg/dL Crossmatch See Detail
[2021-01-08] MEDS: dexAMETHasone 4 MG/ML VIAL IV SCH (10:42)
[2021-01-08] MEDS: PANTOPRAZOLE 40 MG TAB PO SCH (10:42)
[2021-01-08 11:03] LABS: Total Cells Counted 100
[2021-01-08 11:04] LABS: Band Neutrophils # (Manual) 0.3 K/mm3; Myelocytes # (Manual) 0.1 K/mm3
[2021-01-08 11:05] LABS: Platelet Estimate Consistent w Auto; Poikilocytosis 1+
[2021-01-08] MEDS: NIFEdipine XL 60 MG TAB PO SCH ×2 (11:15→23:57)
--- NOTE | 2021-01-08 16:40 | Progress Note ---
Assessment and Plan Impression: * faviola * sepsis * acute hypoxic resp failure * ams * metabolic acidosis * Bilateral PNA * Covid PNA * UTI with sepsis * anemia * hypernatremia Plan: * no emergent indication for PHYSICAL THERAPY MANAGER at this time, however concerning trend * cr fairly stable today, 1.5->2.2->2.5->2.9->2.5->2.0->2.1, likely worsened due to anemia but improved now * note hemoglobin 6.6->5.5->8.0->12.9 s/p PRBCs, previously 13, note hematoma * FAVIOLA likely multifactorial, hypoperfusion due to sepsis, ATN with COVID * keep MAP>65, BP now stable, back on nifedipine * abx per primary team, note initiation of remdesivir * continue IVF for renal perfusion as tolerated, on D5 1/2NS * calcium noted, replete prn * strict i/os and daily lytes * avoid nephrotoxins Subjective Date of service: 01/08/21 Principal diagnosis: faviola Interval history: labs and chart reviewed events noted Objective - Exam Narrative Exam: primary team exam noted, exam deferred for preservation of PPE - Vital Signs Vital signs: Vital Signs - 12hr 01/08/21 01/08/21 01/08/21 04:55 08:50 11:10 Temperature 97.9 F Pulse Rate 97 H Respiratory 20 16 Rate Blood Pressure 142/85 Blood Pressure 132/85 [Right] O2 Sat by Pulse 91 97 100 Oximetry 01/08/21 01/08/21 12:16 15:20 Temperature 98.8 F Pulse Rate 101 H Respiratory 22 Rate Blood Pressure 106/64 Blood Pressure [Right] O2 Sat by Pulse 98 95 Oximetry - Lab 01/08/21 05:38 01/08/21 05:38 Most recent lab results Calcium 7.1 mg/dL (8.4-10.2) L 01/08/21 05:38 Medications & Allergies - Medications Allergies/Adverse Reactions: Allergies Sulfa (Sulfonamide Antibiotics) Allergy (Verified 01/02/21 00:42) Unknown Home Medications: Home Medications Medication Instructions Recorded Confirmed Last Taken Type Aspirin [Aspirin BABY CHEW TAB] 81 mg PO QDAY 01/02/21 01/02/21 Unknown History carvediloL [Coreg] 12.5 mg PO BID 01/02/21 01/02/21 Unknown History donepeziL [Aricept] 10 mg PO QHS 01/02/21 01/02/21 Unknown History hydrALAZINE [Apresoline TAB] 100 mg PO Q8HR 01/02/21 01/02/21 Unknown History Active Medications: Generic Name Dose Route Start Last Admin Trade Name Freq PRN Reason Stop Dose Admin Acetaminophen 650 mg 01/02/21 01:40 Acetaminophen 325 Mg Tab PO Q4H PRN Pain, Mild (1-3) Atorvastatin Calcium 40 mg 01/02/21 22:00 01/07/21 22:04 Atorvastatin 40 Mg Tab PO 40 mg QHS BELTRAN Administration Bisacodyl 10 mg 01/02/21 01:40 Bisacodyl 10 Mg Rect Supp GA QDAY PRN Constipation Dexamethasone 6 mg 01/03/21 10:00 01/08/21 10:42 Dexamethasone 4 Mg/Ml Vial IV 01/12/21 10:01 6 mg Q24HR BELTRAN Administration Metoclopramide HCl 5 mg 01/02/21 01:40 Metoclopramide 10 Mg Tab PO Q6H PRN Nausea And Vomiting Morphine Sulfate 2 mg 01/02/21 01:40 01/07/21 22:05 Morphine 2 Mg/1 Ml Inj IV 2 mg Q4H PRN Administration Pain, Moderate (4-6) Morphine Sulfate 4 mg 01/02/21 01:40 01/04/21 14:56 Morphine 4 Mg/1 Ml Inj IV 4 mg Q4H PRN Administration Pain , Severe (7-10) Nifedipine 60 mg 01/02/21 13:00 01/08/21 11:15 Nifedipine Xl 60 Mg Tab PO 60 mg BID BELTRAN Administration Ondansetron HCl 4 mg 01/02/21 01:40 Ondansetron 4 Mg/2 Ml Inj IV Q8H PRN Nausea And Vomiting Pantoprazole Sodium 40 mg 01/08/21 09:00 01/08/21 10:42 Pantoprazole 40 Mg Tab PO 40 mg QDAC BELTRAN Administration Promethazine HCl 25 mg 01/02/21 01:40 Promethazine 25 Mg Rect Supp GA Q6H PRN Nausea And Vomiting Sodium Chloride 10 ml 01/02/21 10:00 01/08/21 10:43 Sodium Chloride 0.9% 10 Ml Flush Syringe IV 10 ml BID BELTRAN Administration Sodium Chloride 10 ml 01/02/21 01:40 Sodium Chloride 0.9% 10 Ml Flush Syringe IV PRN PRN LINE FLUSH
--- NOTE | 2021-01-09 10:08 | Progress Note ---
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 * cr fairly stable today, 1.5->2.2->2.5->2.9->2.5->2.0->2.1->1.8, likely worsened due to anemia but improved now * note hemoglobin 6.6->5.5->8.0->12.9 s/p PRBCs, previously 13, noted hematoma * Initial FAVIOLA likely multifactorial, hypoperfusion due to sepsis, ATN with COVID * keep MAP>65, BP now stable, back on nifedipine * abx per primary team, note initiation of remdesivir * continue IVF for renal perfusion as tolerated * calcium noted, replete prn * strict i/os and daily lytes * avoid nephrotoxins Subjective Date of service: 01/09/21 Principal diagnosis: faviola Interval history: labs and chart reviewed events noted Objective - Exam Narrative Exam: primary team exam noted, exam deferred for preservation of PPE - Vital Signs Vital signs: Vital Signs - 12hr 01/08/21 01/09/21 01/09/21 22:42 02:16 04:23 Temperature 97.5 F L 98.6 F Pulse Rate 112 H 99 H Respiratory 16 16 Rate Blood Pressure 196/155 131/75 O2 Sat by Pulse 99 100 96 Oximetry 01/09/21 05:17 Temperature Pulse Rate Respiratory Rate Blood Pressure O2 Sat by Pulse 99 Oximetry - Lab 01/08/21 05:38 01/09/21 05:48 Most recent lab results Calcium 7.0 mg/dL (8.4-10.2) L 01/09/21 05:48 Medications & Allergies - Medications Allergies/Adverse Reactions: Allergies Sulfa (Sulfonamide Antibiotics) Allergy (Verified 01/02/21 00:42) Unknown Home Medications: Home Medications Medication Instructions Recorded Confirmed Last Taken Type Aspirin [Aspirin BABY CHEW TAB] 81 mg PO QDAY 01/02/21 01/02/21 Unknown History carvediloL [Coreg] 12.5 mg PO BID 01/02/21 01/02/21 Unknown History donepeziL [Aricept] 10 mg PO QHS 01/02/21 01/02/21 Unknown History hydrALAZINE [Apresoline TAB] 100 mg PO Q8HR 01/02/21 01/02/21 Unknown History Active Medications: Generic Name Dose Route Start Last Admin Trade Name Freq PRN Reason Stop Dose Admin Acetaminophen 650 mg 01/02/21 01:40 Acetaminophen 325 Mg Tab PO Q4H PRN Pain, Mild (1-3) Atorvastatin Calcium 40 mg 01/02/21 22:00 01/08/21 23:57 Atorvastatin 40 Mg Tab PO 40 mg QHS BELTRAN Administration Bisacodyl 10 mg 01/02/21 01:40 Bisacodyl 10 Mg Rect Supp GA QDAY PRN Constipation Dexamethasone 6 mg 01/03/21 10:00 01/08/21 10:42 Dexamethasone 4 Mg/Ml Vial IV 01/12/21 10:01 6 mg Q24HR BELTRAN Administration Metoclopramide HCl 5 mg 01/02/21 01:40 Metoclopramide 10 Mg Tab PO Q6H PRN Nausea And Vomiting Morphine Sulfate 2 mg 01/02/21 01:40 01/07/21 22:05 Morphine 2 Mg/1 Ml Inj IV 2 mg Q4H PRN Administration Pain, Moderate (4-6) Morphine Sulfate 4 mg 01/02/21 01:40 01/04/21 14:56 Morphine 4 Mg/1 Ml Inj IV 4 mg Q4H PRN Administration Pain , Severe (7-10) Nifedipine 60 mg 01/02/21 13:00 01/08/21 23:57 Nifedipine Xl 60 Mg Tab PO 60 mg BID BELTRAN Administration Ondansetron HCl 4 mg 01/02/21 01:40 Ondansetron 4 Mg/2 Ml Inj IV Q8H PRN Nausea And Vomiting Pantoprazole Sodium 40 mg 01/08/21 09:00 01/08/21 10:42 Pantoprazole 40 Mg Tab PO 40 mg QDAC BELTRAN Administration Promethazine HCl 25 mg 01/02/21 01:40 Promethazine 25 Mg Rect Supp GA Q6H PRN Nausea And Vomiting Sodium Chloride 10 ml 01/02/21 10:00 01/08/21 23:58 Sodium Chloride 0.9% 10 Ml Flush Syringe IV 10 ml BID BELTRAN Administration Sodium Chloride 10 ml 01/02/21 01:40 Sodium Chloride 0.9% 10 Ml Flush Syringe IV PRN PRN LINE FLUSH
[2021-01-09] MEDS: PANTOPRAZOLE 40 MG TAB PO SCH (10:32)
[2021-01-09] MEDS: dexAMETHasone 4 MG/ML VIAL IV SCH (10:32)
[2021-01-09] MEDS: NIFEdipine XL 60 MG TAB PO SCH ×2 (10:32→22:02)
--- NOTE | 2021-01-09 12:18 | Progress Note ---
Assessment and Plan Assessment and plan: CVA, likely. CT of the head with left basal ganglia changes. For MRI Sepsis. Present on admission. Patient meets criteria given the tachycardia, tachypnea and diagnosis of UTI/pneumonia. Bilateral pneumonia. COVID-19 pneumonia. Acute kidney injury. Etiology secondary to ATN/sepsis. UTI. Toxic metabolic encephalopathy. 01/02/2021. Altered mentation is secondary to toxic metabolic encephalopathy from sepsis/pneumonia/UTI +/-CVA. CT scan of the head reveals several findings including: Suspicious hypodensity within the left basal ganglia which could be secondary to acute infarct. MRI recommended for further evaluation. There are several small lacunar infarcts identified within the right basal ganglia. Neurology consultation when available. Patient will be continued on IV antibiotics. Patient currently undergoing VQ scan for elevated D-dimer to rule out PE. Follow-up Covid PCR. Total visit time equals 35 minutes with greater than 50% spent on coordination of care and counseling. 01/03/2021. Await MRI brain. Echocardiogram reveals left ventricular size normal with normal systolic function. EF 50 to 60%. Mild diastolic dysfunction. No PFO. Creatinine has improved to 1.5. Nephrology following. Covid PCR positive on 01/02. Continue IV antibiotics. Follow-up blood cultures. Check procalcitonin. Continue dexamethasone. VQ scan is negative for PE. Therefore, we will discontinue IV heparin drip. 01/04/2021. Continue dexamethasone 6 mg IV for 10 days. ID initiated remdesivir yesterday. Continue to trend inflammatory markers of ferritin, D-dimer, CRP and LDH. Initial markers elevated with D-dimer 2078. CRP 2.5. Ferritin 320. Continue DVT prophylactic anticoagulation. Continue ceftriaxone and azithromycin given the elevated procalcitonin. Continue to monitor creatinine, strict i/os and daily lytes, avoid nephrotoxins. Await MRI brain to further assess abnormal CT scan and CVA. Neurology consultation pending 01/05/21 patient with Covid-19 pneumonia. Hgb 5.5 today, was 6.6 yesterday and 13.6 about 3 days ago. No obvious bleeding. Obtain stat PT,INR,Iron. stool occult blood. Transfuse 3 Units PRBC. NPO. Protonix drip. I consulted GI and di scussed with Dr. Grijalva. Obtain CT Abd/pelvis to r/o hematoma. I also discussed with Dr. Zelaya and he agrees to hold Aspirin because of sudden large Hgb drop. Patient cannot give history For MRI Brain to r/o stroke 01/06/21 Patient with Covid-19 pneumonia with acute respiratory failure. he had Hgb 5,5 yesterday from 13.6 just 3 days earlier. Workup revealed subpectoral hematoma right chest. She was transfused 3 Units PRBC, now Hgb 12. Surgeon following. No known trauma. Patient cannot give history, has aphasia from poss stroke. CT Head sugg several lacunar infarcts both basal ganglia. MRI Brain to r/o stroke pending. Continue to monitor H/H FAVIOLA followed by Nephrology 01/07/21 Hypernatremia improved from 151 to 150 on D5NS. Will change IV fluids to D5 half-normal saline at the same rate. On 7 L of oxygen for acute hypoxic respiratory failure due to COVID-19 pneumonia. Will wean off oxygen as tolerated Hb trending up. Continue to hold ASA. Surgeon, nephrology and ID input appreciat ed. Still on remdesivir and dexamethasone. 01/08/2021. Hyponatremia has resolved. Will DC IV fluid. No significant change in creatinine for the last few days and nephrology is on board. Leukocytosis has improved. Completed remdesivir on 01/07/2021. Still on dexamethasone started on 01/03/2021. On 7 L oxygen with O2 sat of 91% and will wean off as tolerated. Surgeon has recommended to hold aspirin indefinitely. 01/09/2021 Patient with Covid-19, stroke,FAVIOLA, hematoma right chest wall. Impro ving. H/H stable. Cr 1.8 today. Swelling right chest wall much improved. History Interval history: Patient with Covid -19 pneumonia, stroke, hematoma right chest Hospitalist Physical - Physical exam Narrative exam: Gen: Not in acute distress, lying in bed, On Oxygen by NC HEENT: Normocephalic, atraumatic Lungs: Less swelling right chest from subpectoral hematoma, no wheeze Heart: S1 and S2 reg, no murmurs, rubs or gallop Abd:soft, non-tender, non distended, normal bowel sounds Ext: No edema, clubbing or cyanosis Neuro: Awake, alert, oriented - Constitutional Vitals: Temp Pulse Resp BP Pulse Ox 98.3 F 106 H 18 135/85 97 01/09/21 12:13 01/09/21 12:13 01/09/21 12:13 01/09/21 12:13 01/09/21 11:22 General appearance: Present: no acute distress, well-nourished HEART Score - HEART Score Troponin: Troponin T 0.038 ng/mL (0.00-0.029) H 01/02/21 02:01 Results - Labs CBC & Chem 7: 01/08/21 05:38 01/09/21 05:48 Labs: Laboratory Last Values WBC 14.6 K/mm3 (4.5-11.0) H 01/08/21 05:38 RBC 4.43 M/mm3 (3.65-5.03) 01/08/21 05:38 Hgb 12.9 gm/dl (10.1-14.3) 01/08/21 05:38 Hct 38.4 % (30.3-42.9) 01/08/21 05:38 MCV 87 fl (79-97) 01/08/21 05:38 MCH 29 pg (28-32) 01/08/21 05:38 MCHC 34 % (30-34) 01/08/21 05:38 RDW 16.5 % (13.2-15.2) H 01/08/21 05:38 Plt Count 277 K/mm3 (140-440) 01/08/21 05:38 Lymph % (Auto) 16.7 % (13.4-35.0) 01/07/21 05:25 [place] % (Auto) 4.9 % (0.0-7.3) 01/07/21 05:25 Eos % (Auto) 0.0 % (0.0-4.3) 01/07/21 05:25 Baso % (Auto) 0.1 % (0.0-1.8) 01/07/21 05:25 Lymph # (Auto) 2.6 K/mm3 (1.2-5.4) 01/07/21 05:25 [place] # (Auto) 0.8 K/mm3 (0.0-0.8) 01/07/21 05:25 Eos # (Auto) 0.0 K/mm3 (0.0-0.4) 01/07/21 05:25 Baso # (Auto) 0.0 K/mm3 (0.0-0.1) 01/07/21 05:25 Add Manual Diff Complete 01/08/21 05:38 Total Counted 100 01/08/21 05:38 Seg Neutrophils % 78.3 % (40.0-70.0) H 01/07/21 05:25 Seg Neuts % (Manual) 86.0 % (40.0-70.0) H 01/08/21 05:38 Band Neutrophils % 2.0 % 01/08/21 05:38 Lymphocytes % (Manual) 7.0 % (13.4-35.0) L 01/08/21 05:38 Monocytes % (Manual) 4.0 % (0.0-7.3) 01/08/21 05:38 Metamyelocytes % 1.0 % 01/06/21 09:12 Myelocytes % 1.0 % 01/08/21 05:38 Nucleated RBC % 1.0 % (0.0-0.9) H 01/08/21 05:38 Seg Neutrophils # 12.0 K/mm3 (1.8-7.7) H 01/07/21 05:25 Seg Neutrophils # Man 12.6 K/mm3 (1.8-7.7) H 01/08/21 05:38 Band Neutrophils # 0.3 K/mm3 01/08/21 05:38 Lymphocytes # (Manual) 1.0 K/mm3 (1.2-5.4) L 01/08/21 05:38 Abs React Lymphs (Man) 0.0 K/mm3 01/08/21 05:38 Monocytes # (Manual) 0.6 K/mm3 (0.0-0.8) 01/08/21 05:38 Eosinophils # (Manual) 0.0 K/mm3 (0.0-0.4) 01/08/21 05:38 Basophils # (Manual) 0.0 K/mm3 (0.0-0.1) 01/08/21 05:38 Metamyelocytes # 0.0 K/mm3 01/08/21 05:38 Myelocytes # 0.1 K/mm3 01/08/21 05:38 Promyelocytes # 0.0 K/mm3 01/08/21 05:38 Blast Cells # 0.0 K/mm3 01/08/21 05:38 WBC Morphology Not Reportable 01/08/21 05:38 Hypersegmented Neuts Not Reportable 01/08/21 05:38 Hyposegmented Neuts Not Reportable 01/08/21 05:38 Hypogranular Neuts Not Reportable 01/08/21 05:38 Smudge Cells Not Reportable 01/08/21 05:38 Toxic Granulation Not Reportable 01/08/21 05:38 Toxic Vacuolation Not Reportable 01/08/21 05:38 Dohle Bodies Not Reportable 01/08/21 05:38 Pelger-Huet Anomaly Not Reportable 01/08/21 05:38 Lenin Rods Not Reportable 01/08/21 05:38 Platelet Estimate Consistent w auto 01/08/21 05:38 Clumped Platelets Not Reportable 01/08/21 05:38 Plt Clumps, EDTA Not Reportable 01/08/21 05:38 Large Platelets Not Reportable 01/08/21 05:38 Giant Platelets Not Reportable 01/08/21 05:38 Platelet Satelliting Not Reportable 01/08/21 05:38 Plt Morphology Comment Not Reportable 01/08/21 05:38 RBC Morphology Not Reportable 01/08/21 05:38 Dimorphic RBCs Not Reportable 01/08/21 05:38 Polychromasia 2+ 01/08/21 05:38 Hypochromasia Not Reportable 01/08/21 05:38 Poikilocytosis 1+ 01/08/21 05:38 Anisocytosis Not Reportable 01/08/21 05:38 Microcytosis Not Reportable 01/08/21 05:38 Macrocytosis Not Reportable 01/08/21 05:38 Spherocytes Not Reportable 01/08/21 05:38 Pappenheimer Bodies Not Reportable 01/08/21 05:38 Sickle Cells Not Reportable 01/08/21 05:38 Target Cells Not Reportable 01/08/21 05:38 Tear Drop Cells Not Reportable 01/08/21 05:38 Ovalocytes Not Reportable 01/08/21 05:38 Helmet Cells Not Reportable 01/08/21 05:38 [place] Bodies Not Reportable 01/08/21 05:38 Hebo Rings Not Reportable 01/08/21 05:38 Lissie Cells Not Reportable 01/08/21 05:38 Bite Cells Not Reportable 01/08/21 05:38 Crenated Cell Not Reportable 01/08/21 05:38 Elliptocytes Not Reportable 01/08/21 05:38 Acanthocytes (Spur) Not Reportable 01/08/21 05:38 Rouleaux Not Reportable 01/08/21 05:38 Hemoglobin C Crystals Not Reportable 01/08/21 05:38 Schistocytes Not Reportable 01/08/21 05:38 Malaria parasites Not Reportable 01/08/21 05:38 Spike Bodies Not Reportable 01/08/21 05:38 Hem Pathologist Commnt No 01/08/21 05:38 PT 15.1 Sec. (12.2-14.9) H 01/05/21 15:30 INR 1.14 (0.87-1.13) H 01/05/21 15:30 APTT 24.7 Sec. (24.2-36.6) 01/05/21 15:30 D-Dimer 845.89 ng/mlDDU (0-234) H 01/06/21 09:10 Heparin Anti-Xa Level 1.32 U.I./ml (0.3-0.7) H 01/02/21 19:14 Sodium 141 mmol/L (137-145) 01/09/21 05:48 Potassium 3.6 mmol/L (3.6-5.0) 01/09/21 05:48 Chloride 103.7 mmol/L (98-107) 01/09/21 05:48 Carbon Dioxide 22 mmol/L (22-30) 01/09/21 05:48 Anion Gap 19 mmol/L 01/09/21 05:48 BUN 38 mg/dL (7-17) H 01/09/21 05:48 Creatinine 1.8 mg/dL (0.6-1.2) H 01/09/21 05:48 Estimated GFR 35 ml/min 01/09/21 05:48 BUN/Creatinine Ratio 21 % 01/09/21 05:48 Glucose 76 mg/dL (65-100) 01/09/21 05:48 POC Glucose 214 mg/dL (70-105) H 01/04/21 17:25 Lactic Acid 1.80 mmol/L (0.7-2.0) 01/01/21 23:33 Calcium 7.0 mg/dL (8.4-10.2) L 01/09/21 05:48 Iron 41 ug/dL (37-170) 01/05/21 15:30 TIBC 173 mcg/dL (250-450) L 01/05/21 15:30 Ferritin 375.6 ng/mL (10.0-200.0) H 01/05/21 15:30 Total Bilirubin 0.50 mg/dL (0.1-1.2) 01/06/21 09:10 AST 59 units/L (5-40) H 01/06/21 09:10 ALT 23 units/L (7-56) 01/06/21 09:10 Alkaline Phosphatase 55 units/L (35-129) 01/06/21 09:10 Lactate Dehydrogenase 493 units/L (91-180) H 01/06/21 09:10 Troponin T 0.038 ng/mL (0.00-0.029) H 01/02/21 02:01 C-Reactive Protein 2.60 mg/dL (0.00-1.30) H 01/06/21 09:10 NT-Pro-B Natriuret Pep 398.4 pg/mL (0-900) 01/01/21 23:33 Total Protein 7.2 g/dL (6.3-8.2) D 01/06/21 09:10 Albumin 3.2 g/dL (3.9-5) L 01/06/21 09:10 Albumin/Globulin Ratio 0.8 % 01/06/21 09:10 Triglycerides 284 mg/dL (2-149) H 01/01/21 23:33 Cholesterol 151 mg/dL (50-199) 01/01/21 23:33 LDL Cholesterol Direct 65 mg/dL (50-130) 01/01/21 23:33 HDL Cholesterol 20 mg/dL (40-59) L 01/01/21 23:33 Cholesterol/HDL Ratio 7.55 % 01/01/21 23:33 Procalcitonin 0.71 ng/mL (<0.15) 01/02/21 05:37 Urine Color Izzy (Yellow) 01/02/21 00:15 Urine Turbidity Cloudy (Clear) 01/02/21 00:15 Urine pH 6.0 (5.0-7.0) 01/02/21 00:15 Ur Specific [place] 1.016 (1.003-1.030) 01/02/21 00:15 Urine Protein 100 mg/dl mg/dL (Negative) 01/02/21 00:15 Urine Glucose (UA) Neg mg/dL (Negative) 01/02/21 00:15 Urine Ketones Neg mg/dL (Negative) 01/02/21 00:15 Urine Blood Lg (Negative) 01/02/21 00:15 Urine Nitrite Neg (Negative) 01/02/21 00:15 Urine Bilirubin Neg (Negative) 01/02/21 00:15 Urine Urobilinogen 4.0 mg/dL (<2.0) 01/02/21 00:15 Ur Leukocyte Esterase Mod (Negative) 01/02/21 00:15 Urine WBC (Auto) 88.0 /HPF (0.0-6.0) H 01/02/21 00:15 Urine RBC (Auto) 56.0 /HPF (0.0-6.0) 01/02/21 00:15 U Epithel Cells (Auto) 2.0 /HPF (0-13.0) 01/02/21 00:15 Urine WBC Clumps 1+ /HPF 01/02/21 00:15 Urine Mucus Few /HPF 01/02/21 00:15 Urine Yeast (Budding) Few /HPF 01/02/21 00:15 Coronavirus (PCR) Positive (Negative) A 01/02/21 Unknown Blood Type A POSITIVE 01/05/21 15:30 Antibody Screen Negative 01/05/21 15:30 Crossmatch See Detail 01/05/21 15:30 Marie/IV: Voiding Method External Female Catheter Active Medications - Current Medications Current Medications: Generic Name Dose Route Start Last Admin Trade Name Freq PRN Reason Stop Dose Admin Acetaminophen 650 mg 01/02/21 01:40 Acetaminophen 325 Mg Tab PO Q4H PRN Pain, Mild (1-3) Atorvastatin Calcium 40 mg 01/02/21 22:00 01/08/21 23:57 Atorvastatin 40 Mg Tab PO 40 mg QHS BELTRAN Administration Bisacodyl 10 mg 01/02/21 01:40 Bisacodyl 10 Mg Rect Supp [place] QDAY PRN Constipation Dexamethasone 6 mg 01/03/21 10:00 01/09/21 10:32 Dexamethasone 4 Mg/Ml Vial IV 01/12/21 10:01 6 mg Q24HR BELTRAN Administration Metoclopramide HCl 5 mg 01/02/21 01:40 Metoclopramide 10 Mg Tab PO Q6H PRN Nausea And Vomiting Morphine Sulfate 2 mg 01/02/21 01:40 01/07/21 22:05 Morphine 2 Mg/1 Ml Inj IV 2 mg Q4H PRN Administration Pain, Moderate (4-6) Morphine Sulfate 4 mg 01/02/21 01:40 01/04/21 14:56 Morphine 4 Mg/1 Ml Inj IV 4 mg Q4H PRN Administration Pain , Severe (7-10) Nifedipine 60 mg 01/02/21 13:00 01/09/21 10:32 Nifedipine Xl 60 Mg Tab PO 60 mg BID BELTRAN Administration Ondansetron HCl 4 mg 01/02/21 01:40 Ondansetron 4 Mg/2 Ml Inj IV Q8H PRN Nausea And Vomiting Pantoprazole Sodium 40 mg 01/08/21 09:00 01/09/21 10:32 Pantoprazole 40 Mg Tab PO 40 mg QDAC BELTRAN Administration Promethazine HCl 25 mg 01/02/21 01:40 Promethazine 25 Mg Rect Supp [place] Q6H PRN Nausea And Vomiting Sodium Chloride 10 ml 01/02/21 10:00 01/09/21 10:32 Sodium Chloride 0.9% 10 Ml Flush Syringe IV 10 ml BID BELTRAN Administration Sodium Chloride 10 ml 01/02/21 01:40 Sodium Chloride 0.9% 10 Ml Flush Syringe IV PRN PRN LINE FLUSH Nutrition/Malnutrition Assess - Dietary Evaluation Nutrition/Malnutrition Findings: Nutrition Notes Start: 01/02/21 10:21 Freq: Status: Active Protocol: Document 01/02/21 10:21 GB (Rec: 01/02/21 10:29 GB [id number]) Nutrition Notes Need for Assessment generated from: MD Order Initial or Follow up Assessment Current Diagnosis Hypertension,Stroke Other Pertinent Diagnosis Consult for diet education Current Diet NPO x1 Labs/Tests 01/01: Na 147, BUN 37, creatinine 2.3, Tg 284 01/02: ferritin 317 (slight improvement) Pertinent Medications azithromycin Height 5 ft 1 in Weight 63.503 kg [place] Body Weight (kg) 47.72 BMI 26.4 Weight change and time frame No reported weight change. Weight Status Overweight Subjective/Other Information Pt in ER holding for admit to room. Education to be reviewed following room admit. Percent of energy/protein needs met: 0% at this time with NPOx1 day Burn Absent Trauma Absent GI Symptoms None Food Allergy No Skin Integrity/Comment No complications reported Current % PO Other Minimum of two criteria No #1 Nutrition Diagnosis Food and nutrition-related knowledge deficit Comments: admitted for UTI/AMS Etiology consult for diet education As Evidenced by Signs and Symptoms education relating to history of HTN/stroke. Is patient on ventilator? No Is Patient Ambulatory and/or Out of Bed No REE-([place] Jeor-confined to bed) 1393.596 Kcal/Kg value to use for calculation 22 Approximate Energy Requirements Using 1397 kcal/Kg Calculation Used for Recommendations Kcal/kg Additional Notes Protein 1-1.2 g/kg @ 64k- 77g Fluids: 1 ml/kcal or per MD Nutrition Intervention Change Diet Order: NPO x 1, once medically feasible advance diet to low sodium/heart healthy Nutrition Support: n/a Add Supplement/Snack (indicate name/kcal n/a /protein ) Goal #1 Education to be provided to pt post admittance to room. Goal #2 Diet advanced to low sodium/ heart healthy Anticipated Discharge Needs: no specialized nutrition instructions at this time Follow-Up By: 01/12/21 Additional Comments f/u: provide HTN/stroke nutrition therapy educatio, if pt d/c prior to f/u: pt can access RD outpatient via their insurance RD program or call [facility] RD for more information.
[2021-01-10 06:41] LABS: Hematocrit 41.4 % (30.3-42.9); Hemoglobin 13.8 gm/dl (10.1-14.3); Mean Corpuscular HGB Conc 33 % (30-34); Mean Corpuscular Volume 86 fl (79-97); Platelet Count 283 K/mm3 (140-440); Red Cell Distribution Width 16.3 % (13.2-15.2)
[2021-01-10 07:06] LABS: Calcium 7.1 mg/dL (8.4-10.2)
--- NOTE | 2021-01-10 09:33 | Progress Note ---
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 * cr fairly stable today, 1.5->2.2->2.5->2.9->2.5->2.0->2.1->1.8->1.6, likely worsened due to anemia but improved now * note hemoglobin 6.6->5.5->8.0->12.9 s/p PRBCs, previously 13, noted hematoma * Initial FAVIOLA likely multifactorial, hypoperfusion due to sepsis, ATN with COVID * keep MAP>65, BP now stable, back on nifedipine * abx per primary team, note initiation of remdesivir * continue IVF for renal perfusion as tolerated * calcium noted, replete prn * strict i/os and daily lytes * avoid nephrotoxins Subjective Date of service: 01/10/21 Principal diagnosis: faviola Interval history: labs and chart reviewed events noted Objective - Exam Narrative Exam: primary team exam noted, exam deferred for preservation of PPE - Vital Signs Vital signs: Vital Signs - 12hr 01/09/21 01/10/21 01/10/21 22:00 04:00 07:10 Temperature 99 F Pulse Rate 82 92 H Respiratory 18 Rate Blood Pressure 165/90 [Right] O2 Sat by Pulse 96 98 Oximetry - Lab 01/10/21 05:51 01/10/21 05:51 Most recent lab results Calcium 7.1 mg/dL (8.4-10.2) L 01/10/21 05:51 Medications & Allergies - Medications Allergies/Adverse Reactions: Allergies Sulfa (Sulfonamide Antibiotics) Allergy (Verified 01/02/21 00:42) Unknown Home Medications: Home Medications Medication Instructions Recorded Confirmed Last Taken Type Aspirin [Aspirin BABY CHEW TAB] 81 mg PO QDAY 01/02/21 01/02/21 Unknown History carvediloL [Coreg] 12.5 mg PO BID 01/02/21 01/02/21 Unknown History donepeziL [Aricept] 10 mg PO QHS 01/02/21 01/02/21 Unknown History hydrALAZINE [Apresoline TAB] 100 mg PO Q8HR 01/02/21 01/02/21 Unknown History Active Medications: Generic Name Dose Route Start Last Admin Trade Name Freq PRN Reason Stop Dose Admin Acetaminophen 650 mg 01/02/21 01:40 Acetaminophen 325 Mg Tab PO Q4H PRN Pain, Mild (1-3) Atorvastatin Calcium 40 mg 01/02/21 22:00 01/09/21 22:01 Atorvastatin 40 Mg Tab PO 40 mg QHS BELTRAN Administration Bisacodyl 10 mg 01/02/21 01:40 Bisacodyl 10 Mg Rect Supp [place] QDAY PRN Constipation Dexamethasone 6 mg 01/03/21 10:00 01/09/21 10:32 Dexamethasone 4 Mg/Ml Vial IV 01/12/21 10:01 6 mg Q24HR BELTRAN Administration Metoclopramide HCl 5 mg 01/02/21 01:40 Metoclopramide 10 Mg Tab PO Q6H PRN Nausea And Vomiting Morphine Sulfate 2 mg 01/02/21 01:40 01/07/21 22:05 Morphine 2 Mg/1 Ml Inj IV 2 mg Q4H PRN Administration Pain, Moderate (4-6) Morphine Sulfate 4 mg 01/02/21 01:40 01/04/21 14:56 Morphine 4 Mg/1 Ml Inj IV 4 mg Q4H PRN Administration Pain , Severe (7-10) Nifedipine 60 mg 01/02/21 13:00 01/09/21 22:02 Nifedipine Xl 60 Mg Tab PO 60 mg BID BELTRAN Administration Ondansetron HCl 4 mg 01/02/21 01:40 Ondansetron 4 Mg/2 Ml Inj IV Q8H PRN Nausea And Vomiting Pantoprazole Sodium 40 mg 01/08/21 09:00 01/09/21 10:32 Pantoprazole 40 Mg Tab PO 40 mg QDAC BELTRAN Administration Promethazine HCl 25 mg 01/02/21 01:40 Promethazine 25 Mg Rect Supp [place] Q6H PRN Nausea And Vomiting Sodium Chloride 10 ml 01/02/21 10:00 01/09/21 22:02 Sodium Chloride 0.9% 10 Ml Flush Syringe IV 10 ml BID BELTRAN Administration Sodium Chloride 10 ml 01/02/21 01:40 Sodium Chloride 0.9% 10 Ml Flush Syringe IV PRN PRN LINE FLUSH
[2021-01-10] MEDS: dexAMETHasone 4 MG/ML VIAL IV SCH (10:04)
[2021-01-10] MEDS: NIFEdipine XL 60 MG TAB PO SCH ×2 (10:04→21:22)
[2021-01-10] MEDS: PANTOPRAZOLE 40 MG TAB PO SCH (10:04)
--- NOTE | 2021-01-10 12:50 | Progress Note ---
Assessment and Plan Assessment and plan: CVA, likely. CT of the head with left basal ganglia changes. For MRI Sepsis. Present on admission. Patient meets criteria given the tachycardia, tachypnea and diagnosis of UTI/pneumonia. Bilateral pneumonia. COVID-19 pneumonia. Acute kidney injury. Etiology secondary to ATN/sepsis. UTI. Toxic metabolic encephalopathy. 01/02/2021. Altered mentation is secondary to toxic metabolic encephalopathy from sepsis/pneumonia/UTI +/-CVA. CT scan of the head reveals several findings including: Suspicious hypodensity within the left basal ganglia which could be secondary to acute infarct. MRI recommended for further evaluation. There are several small lacunar infarcts identified within the right basal ganglia. Neurology consultation when available. Patient will be continued on IV antibiotics. Patient currently undergoing VQ scan for elevated D-dimer to rule out PE. Follow-up Covid PCR. Total visit time equals 35 minutes with greater than 50% spent on coordination of care and counseling. 01/03/2021. Await MRI brain. Echocardiogram reveals left ventricular size normal with normal systolic function. EF 50 to 60%. Mild diastolic dysfunction. No PFO. Creatinine has improved to 1.5. Nephrology following. Covid PCR positive on 01/02. Continue IV antibiotics. Follow-up blood cultures. Check procalcitonin. Continue dexamethasone. VQ scan is negative for PE. Therefore, we will discontinue IV heparin drip. 01/04/2021. Continue dexamethasone 6 mg IV for 10 days. ID initiated remdesivir yesterday. Continue to trend inflammatory markers of ferritin, D-dimer, CRP and LDH. Initial markers elevated with D-dimer 2078. CRP 2.5. Ferritin 320. Continue DVT prophylactic anticoagulation. Continue ceftriaxone and azithromycin given the elevated procalcitonin. Continue to monitor creatinine, strict i/os and daily lytes, avoid nephrotoxins. Await MRI brain to further assess abnormal CT scan and CVA. Neurology consultation pending 01/05/21 patient with Covid-19 pneumonia. Hgb 5.5 today, was 6.6 yesterday and 13.6 about 3 days ago. No obvious bleeding. Obtain stat PT,INR,Iron. stool occult blood. Transfuse 3 Units PRBC. NPO. Protonix drip. I consulted GI and di scussed with Dr. Grijalva. Obtain CT Abd/pelvis to r/o hematoma. I also discussed with Dr. Zelaya and he agrees to hold Aspirin because of sudden large Hgb drop. Patient cannot give history For MRI Brain to r/o stroke 01/06/21 Patient with Covid-19 pneumonia with acute respiratory failure. he had Hgb 5,5 yesterday from 13.6 just 3 days earlier. Workup revealed subpectoral hematoma right chest. She was transfused 3 Units PRBC, now Hgb 12. Surgeon following. No known trauma. Patient cannot give history, has aphasia from poss stroke. CT Head sugg several lacunar infarcts both basal ganglia. MRI Brain to r/o stroke pending. Continue to monitor H/H FAVIOLA followed by Nephrology 01/07/21 Hypernatremia improved from 151 to 150 on D5NS. Will change IV fluids to D5 half-normal saline at the same rate. On 7 L of oxygen for acute hypoxic respiratory failure due to COVID-19 pneumonia. Will wean off oxygen as tolerated Hb trending up. Continue to hold ASA. Surgeon, nephrology and ID input appreciat ed. Still on remdesivir and dexamethasone. 01/08/2021. Hyponatremia has resolved. Will DC IV fluid. No significant change in creatinine for the last few days and nephrology is on board. Leukocytosis has improved. Completed remdesivir on 01/07/2021. Still on dexamethasone started on 01/03/2021. On 7 L oxygen with O2 sat of 91% and will wean off as tolerated. Surgeon has recommended to hold aspirin indefinitely. 01/09/2021 Patient with Covid-19, stroke,FAVIOLA, hematoma right chest . Improving. H/H stable. Cr 1.8 today. Swelling right chest wall much improved. 01/10/2021 Patient with Covid-19 , Stroke, FAVIOLA, hematoma right chest. Hgb 13.8. Less swelling right chest. On Oxygen at 1 l/min History Interval history: Patient with Covid -19 pneumonia, stroke, hematoma right chest Hospitalist Physical - Physical exam Narrative exam: Gen: Not in acute distress, lying in bed, On Oxygen by NC HEENT: Normocephalic, atraumatic Lungs: Less swelling right chest from subpectoral hematoma, no wheeze Heart: S1 and S2 reg, no murmurs, rubs or gallop Abd:soft, non-tender, non distended, normal bowel sounds Ext: No edema, clubbing or cyanosis Neuro: Awake, alert, oriented - Constitutional Vitals: Temp Pulse Resp BP Pulse Ox 98.7 F 91 H 19 149/95 98 01/10/21 11:00 01/10/21 11:00 01/10/21 11:00 01/10/21 11:00 01/10/21 07:10 General appearance: Present: no acute distress, well-nourished HEART Score - HEART Score Troponin: Troponin T 0.038 ng/mL (0.00-0.029) H 01/02/21 02:01 Results - Labs CBC & Chem 7: 01/10/21 05:51 01/10/21 05:51 Labs: Laboratory Last Values WBC 16.0 K/mm3 (4.5-11.0) H 01/10/21 05:51 RBC 4.80 M/mm3 (3.65-5.03) 01/10/21 05:51 Hgb 13.8 gm/dl (10.1-14.3) 01/10/21 05:51 Hct 41.4 % (30.3-42.9) 01/10/21 05:51 MCV 86 fl (79-97) 01/10/21 05:51 MCH 29 pg (28-32) 01/10/21 05:51 MCHC 33 % (30-34) 01/10/21 05:51 RDW 16.3 % (13.2-15.2) H 01/10/21 05:51 Plt Count 283 K/mm3 (140-440) 01/10/21 05:51 Lymph % (Auto) 16.7 % (13.4-35.0) 01/07/21 05:25 [place] % (Auto) 4.9 % (0.0-7.3) 01/07/21 05:25 Eos % (Auto) 0.0 % (0.0-4.3) 01/07/21 05:25 Baso % (Auto) 0.1 % (0.0-1.8) 01/07/21 05:25 Lymph # (Auto) 2.6 K/mm3 (1.2-5.4) 01/07/21 05:25 [place] # (Auto) 0.8 K/mm3 (0.0-0.8) 01/07/21 05:25 Eos # (Auto) 0.0 K/mm3 (0.0-0.4) 01/07/21 05:25 Baso # (Auto) 0.0 K/mm3 (0.0-0.1) 01/07/21 05:25 Add Manual Diff Complete 01/08/21 05:38 Total Counted 100 01/08/21 05:38 Seg Neutrophils % 78.3 % (40.0-70.0) H 01/07/21 05:25 Seg Neuts % (Manual) 86.0 % (40.0-70.0) H 01/08/21 05:38 Band Neutrophils % 2.0 % 01/08/21 05:38 Lymphocytes % (Manual) 7.0 % (13.4-35.0) L 01/08/21 05:38 Monocytes % (Manual) 4.0 % (0.0-7.3) 01/08/21 05:38 Metamyelocytes % 1.0 % 01/06/21 09:12 Myelocytes % 1.0 % 01/08/21 05:38 Nucleated RBC % 1.0 % (0.0-0.9) H 01/08/21 05:38 Seg Neutrophils # 12.0 K/mm3 (1.8-7.7) H 01/07/21 05:25 Seg Neutrophils # Man 12.6 K/mm3 (1.8-7.7) H 01/08/21 05:38 Band Neutrophils # 0.3 K/mm3 01/08/21 05:38 Lymphocytes # (Manual) 1.0 K/mm3 (1.2-5.4) L 01/08/21 05:38 Abs React Lymphs (Man) 0.0 K/mm3 01/08/21 05:38 Monocytes # (Manual) 0.6 K/mm3 (0.0-0.8) 01/08/21 05:38 Eosinophils # (Manual) 0.0 K/mm3 (0.0-0.4) 01/08/21 05:38 Basophils # (Manual) 0.0 K/mm3 (0.0-0.1) 01/08/21 05:38 Metamyelocytes # 0.0 K/mm3 01/08/21 05:38 Myelocytes # 0.1 K/mm3 01/08/21 05:38 Promyelocytes # 0.0 K/mm3 01/08/21 05:38 Blast Cells # 0.0 K/mm3 01/08/21 05:38 WBC Morphology Not Reportable 01/08/21 05:38 Hypersegmented Neuts Not Reportable 01/08/21 05:38 Hyposegmented Neuts Not Reportable 01/08/21 05:38 Hypogranular Neuts Not Reportable 01/08/21 05:38 Smudge Cells Not Reportable 01/08/21 05:38 Toxic Granulation Not Reportable 01/08/21 05:38 Toxic Vacuolation Not Reportable 01/08/21 05:38 Dohle Bodies Not Reportable 01/08/21 05:38 Pelger-Huet Anomaly Not Reportable 01/08/21 05:38 Lenin Rods Not Reportable 01/08/21 05:38 Platelet Estimate Consistent w auto 01/08/21 05:38 Clumped Platelets Not Reportable 01/08/21 05:38 Plt Clumps, EDTA Not Reportable 01/08/21 05:38 Large Platelets Not Reportable 01/08/21 05:38 Giant Platelets Not Reportable 01/08/21 05:38 Platelet Satelliting Not Reportable 01/08/21 05:38 Plt Morphology Comment Not Reportable 01/08/21 05:38 RBC Morphology Not Reportable 01/08/21 05:38 Dimorphic RBCs Not Reportable 01/08/21 05:38 Polychromasia 2+ 01/08/21 05:38 Hypochromasia Not Reportable 01/08/21 05:38 Poikilocytosis 1+ 01/08/21 05:38 Anisocytosis Not Reportable 01/08/21 05:38 Microcytosis Not Reportable 01/08/21 05:38 Macrocytosis Not Reportable 01/08/21 05:38 Spherocytes Not Reportable 01/08/21 05:38 Pappenheimer Bodies Not Reportable 01/08/21 05:38 Sickle Cells Not Reportable 01/08/21 05:38 Target Cells Not Reportable 01/08/21 05:38 Tear Drop Cells Not Reportable 01/08/21 05:38 Ovalocytes Not Reportable 01/08/21 05:38 Helmet Cells Not Reportable 01/08/21 05:38 [place] Bodies Not Reportable 01/08/21 05:38 Saxe Rings Not Reportable 01/08/21 05:38 Jossy Cells Not Reportable 01/08/21 05:38 Bite Cells Not Reportable 01/08/21 05:38 Crenated Cell Not Reportable 01/08/21 05:38 Elliptocytes Not Reportable 01/08/21 05:38 Acanthocytes (Spur) Not Reportable 01/08/21 05:38 Rouleaux Not Reportable 01/08/21 05:38 Hemoglobin C Crystals Not Reportable 01/08/21 05:38 Schistocytes Not Reportable 01/08/21 05:38 Malaria parasites Not Reportable 01/08/21 05:38 Spike Bodies Not Reportable 01/08/21 05:38 Hem Pathologist Commnt No 01/08/21 05:38 PT 15.1 Sec. (12.2-14.9) H 01/05/21 15:30 INR 1.14 (0.87-1.13) H 01/05/21 15:30 APTT 24.7 Sec. (24.2-36.6) 01/05/21 15:30 D-Dimer 845.89 ng/mlDDU (0-234) H 01/06/21 09:10 Heparin Anti-Xa Level 1.32 U.I./ml (0.3-0.7) H 01/02/21 19:14 Sodium 139 mmol/L (137-145) 01/10/21 05:51 Potassium 3.5 mmol/L (3.6-5.0) L 01/10/21 05:51 Chloride 101.6 mmol/L (98-107) 01/10/21 05:51 Carbon Dioxide 21 mmol/L (22-30) L 01/10/21 05:51 Anion Gap 20 mmol/L 01/10/21 05:51 BUN 36 mg/dL (7-17) H 01/10/21 05:51 Creatinine 1.6 mg/dL (0.6-1.2) H 01/10/21 05:51 Estimated GFR 40 ml/min 01/10/21 05:51 BUN/Creatinine Ratio 23 % 01/10/21 05:51 Glucose 77 mg/dL (65-100) 01/10/21 05:51 POC Glucose 214 mg/dL (70-105) H 01/04/21 17:25 Lactic Acid 1.80 mmol/L (0.7-2.0) 01/01/21 23:33 Calcium 7.1 mg/dL (8.4-10.2) L 01/10/21 05:51 Iron 41 ug/dL (37-170) 01/05/21 15:30 TIBC 173 mcg/dL (250-450) L 01/05/21 15:30 Ferritin 375.6 ng/mL (10.0-200.0) H 01/05/21 15:30 Total Bilirubin 0.50 mg/dL (0.1-1.2) 01/06/21 09:10 AST 59 units/L (5-40) H 01/06/21 09:10 ALT 23 units/L (7-56) 01/06/21 09:10 Alkaline Phosphatase 55 units/L (35-129) 01/06/21 09:10 Lactate Dehydrogenase 493 units/L (91-180) H 01/06/21 09:10 Troponin T 0.038 ng/mL (0.00-0.029) H 01/02/21 02:01 C-Reactive Protein 2.60 mg/dL (0.00-1.30) H 01/06/21 09:10 NT-Pro-B Natriuret Pep 398.4 pg/mL (0-900) 01/01/21 23:33 Total Protein 7.2 g/dL (6.3-8.2) D 01/06/21 09:10 Albumin 3.2 g/dL (3.9-5) L 01/06/21 09:10 Albumin/Globulin Ratio 0.8 % 01/06/21 09:10 Triglycerides 284 mg/dL (2-149) H 01/01/21 23:33 Cholesterol 151 mg/dL (50-199) 01/01/21 23:33 LDL Cholesterol Direct 65 mg/dL (50-130) 01/01/21 23:33 HDL Cholesterol 20 mg/dL (40-59) L 01/01/21 23:33 Cholesterol/HDL Ratio 7.55 % 01/01/21 23:33 Procalcitonin 0.71 ng/mL (<0.15) 01/02/21 05:37 Urine Color Izzy (Yellow) 01/02/21 00:15 Urine Turbidity Cloudy (Clear) 01/02/21 00:15 Urine pH 6.0 (5.0-7.0) 01/02/21 00:15 Ur Specific [place] 1.016 (1.003-1.030) 01/02/21 00:15 Urine Protein 100 mg/dl mg/dL (Negative) 01/02/21 00:15 Urine Glucose (UA) Neg mg/dL (Negative) 01/02/21 00:15 Urine Ketones Neg mg/dL (Negative) 01/02/21 00:15 Urine Blood Lg (Negative) 01/02/21 00:15 Urine Nitrite Neg (Negative) 01/02/21 00:15 Urine Bilirubin Neg (Negative) 01/02/21 00:15 Urine Urobilinogen 4.0 mg/dL (<2.0) 01/02/21 00:15 Ur Leukocyte Esterase Mod (Negative) 01/02/21 00:15 Urine WBC (Auto) 88.0 /HPF (0.0-6.0) H 01/02/21 00:15 Urine RBC (Auto) 56.0 /HPF (0.0-6.0) 01/02/21 00:15 U Epithel Cells (Auto) 2.0 /HPF (0-13.0) 01/02/21 00:15 Urine WBC Clumps 1+ /HPF 01/02/21 00:15 Urine Mucus Few /HPF 01/02/21 00:15 Urine Yeast (Budding) Few /HPF 01/02/21 00:15 Coronavirus (PCR) Positive (Negative) A 01/02/21 Unknown Blood Type A POSITIVE 01/05/21 15:30 Antibody Screen Negative 01/05/21 15:30 Crossmatch See Detail 01/05/21 15:30 Marie/IV: Voiding Method External Female Catheter Active Medications - Current Medications Current Medications: Generic Name Dose Route Start Last Admin Trade Name Freq PRN Reason Stop Dose Admin Acetaminophen 650 mg 01/02/21 01:40 Acetaminophen 325 Mg Tab PO Q4H PRN Pain, Mild (1-3) Atorvastatin Calcium 40 mg 01/02/21 22:00 01/09/21 22:01 Atorvastatin 40 Mg Tab PO 40 mg QHS BELTRAN Administration Bisacodyl 10 mg 01/02/21 01:40 Bisacodyl 10 Mg Rect Supp NM QDAY PRN Constipation Dexamethasone 6 mg 01/03/21 10:00 01/10/21 10:04 Dexamethasone 4 Mg/Ml Vial IV 01/12/21 10:01 6 mg Q24HR BELTRAN Administration Metoclopramide HCl 5 mg 01/02/21 01:40 Metoclopramide 10 Mg Tab PO Q6H PRN Nausea And Vomiting Morphine Sulfate 2 mg 01/02/21 01:40 01/07/21 22:05 Morphine 2 Mg/1 Ml Inj IV 2 mg Q4H PRN Administration Pain, Moderate (4-6) Morphine Sulfate 4 mg 01/02/21 01:40 01/04/21 14:56 Morphine 4 Mg/1 Ml Inj IV 4 mg Q4H PRN Administration Pain , Severe (7-10) Nifedipine 60 mg 01/02/21 13:00 01/10/21 10:04 Nifedipine Xl 60 Mg Tab PO 60 mg BID BELTRAN Administration Ondansetron HCl 4 mg 01/02/21 01:40 Ondansetron 4 Mg/2 Ml Inj IV Q8H PRN Nausea And Vomiting Pantoprazole Sodium 40 mg 01/08/21 09:00 01/10/21 10:04 Pantoprazole 40 Mg Tab PO 40 mg QDAC BELTRAN Administration Potassium Chloride 40 meq 01/10/21 10:00 Potassium Chloride Er 20 Meq Tab PO 01/10/21 16:01 Q6H BELTRAN Promethazine HCl 25 mg 01/02/21 01:40 Promethazine 25 Mg Rect Supp NM Q6H PRN Nausea And Vomiting Sodium Chloride 10 ml 01/02/21 10:00 01/10/21 10:04 Sodium Chloride 0.9% 10 Ml Flush Syringe IV 10 ml BID BELTRAN Administration Sodium Chloride 10 ml 01/02/21 01:40 Sodium Chloride 0.9% 10 Ml Flush Syringe IV PRN PRN LINE FLUSH Nutrition/Malnutrition Assess - Dietary Evaluation Nutrition/Malnutrition Findings: Nutrition Notes Start: 01/02/21 10:21 Freq: Status: Active Protocol: Document 01/02/21 10:21 GB (Rec: 01/02/21 10:29 GB [id number]) Nutrition Notes Need for Assessment generated from: MD Order Initial or Follow up Assessment Current Diagnosis Hypertension,Stroke Other Pertinent Diagnosis Consult for diet education Current Diet NPO x1 Labs/Tests 01/01: Na 147, BUN 37, creatinine 2.3, Tg 284 01/02: ferritin 317 (slight improvement) Pertinent Medications azithromycin Height 5 ft 1 in Weight 63.503 kg Ingram Body Weight (kg) 47.72 BMI 26.4 Weight change and time frame No reported weight change. Weight Status Overweight Subjective/Other Information Pt in ER holding for admit to room. Education to be reviewed following room admit. Percent of energy/protein needs met: 0% at this time with NPOx1 day Burn Absent Trauma Absent GI Symptoms None Food Allergy No Skin Integrity/Comment No complications reported Current % PO Other Minimum of two criteria No #1 Nutrition Diagnosis Food and nutrition-related knowledge deficit Comments: admitted for UTI/AMS Etiology consult for diet education As Evidenced by Signs and Symptoms education relating to history of HTN/stroke. Is patient on ventilator? No Is Patient Ambulatory and/or Out of Bed No REE-([facility]-confined to bed) 1393.596 Kcal/Kg value to use for calculation 22 Approximate Energy Requirements Using 1397 kcal/Kg Calculation Used for Recommendations Kcal/kg Additional Notes Protein 1-1.2 g/kg @ 64k- 77g Fluids: 1 ml/kcal or per MD Nutrition Intervention Change Diet Order: NPO x 1, once medically feasible advance diet to low sodium/heart healthy Nutrition Support: n/a Add Supplement/Snack (indicate name/kcal n/a /protein ) Goal #1 Education to be provided to pt post admittance to room. Goal #2 Diet advanced to low sodium/ heart healthy Anticipated Discharge Needs: no specialized nutrition instructions at this time Follow-Up By: 01/12/21 Additional Comments f/u: provide HTN/stroke nutrition therapy educatio, if pt d/c prior to f/u: pt can access RD outpatient via their insurance RD program or call [facility] RD for more information.
[2021-01-10] MEDS: POTASSIUM CHLORIDE ER 20 MEQ TAB PO SCH ×2 (15:42→17:24)
[2021-01-11 07:22] LABS: Hematocrit 40.3 % (30.3-42.9); Hemoglobin 13.5 gm/dl (10.1-14.3); Mean Corpuscular HGB Conc 33 % (30-34); Mean Corpuscular Volume 87 fl (79-97); Platelet Count 292 K/mm3 (140-440); Red Blood Count 4.65 M/mm3 (3.65-5.03); Red Cell Distribution Width 16.7 % (13.2-15.2)
[2021-01-11] MEDS: PANTOPRAZOLE 40 MG TAB PO SCH (07:53)
--- NOTE | 2021-01-11 09:43 | Progress Note ---
Assessment and Plan Impression: * faviola * sepsis * acute hypoxic resp failure * ams * metabolic acidosis * Bilateral PNA * Covid PNA * UTI with sepsis * anemia * hypernatremia Plan: * Her serum creatinine seems to be creeping up. Suspect possible prerenal component. Shall hydrate her gently. * Serum creatinine trend 1.5->2.2->2.5->2.9->2.5->2.0->2.1->1.8->1.6>1.8 * note hemoglobin 6.6->5.5->8.0->12.9 s/p PRBCs, previously 13, noted hematoma * Initial FAVIOLA likely multifactorial, hypoperfusion due to sepsis, ATN with COVID * keep MAP>65, BP now stable, back on nifedipine * abx per primary team, note initiation of remdesivir * continue IVF for renal perfusion as tolerated * calcium noted, replete prn * strict i/os and daily lytes * avoid nephrotoxins Subjective Date of service: 01/11/21 Principal diagnosis: faviola Interval history: Patient is awake and alert. Appears to be slightly confused. Denies any nausea vomiting or diarrhea. Currently on oxygen via nasal cannula at 2 L/min. Appears comfortable Objective - Vital Signs Vital signs: Vital Signs - 12hr 01/10/21 01/11/21 01/11/21 22:00 04:00 05:00 Temperature 99.3 F Pulse Rate 89 93 H Respiratory 18 Rate Blood Pressure 104/83 [Right] O2 Sat by Pulse 100 98 Oximetry 01/11/21 01/11/21 06:00 09:20 Temperature 98 F Pulse Rate 89 Respiratory 18 Rate Blood Pressure 124/79 [Right] O2 Sat by Pulse 97 96 Oximetry - General Appearance General appearance: well-developed, well-nourished, appears stated age EENT: PERRL, mucous membranes moist Neck: no JVD, no thyromegaly, no carotid bruit, supple Respiratory: Present: Clear to Ascultation Cardiology: regular, normal heart rate, S1S2, no murmurs Gastrointestinal: normal, normoactive bowel sounds Integumentary: no rash, other (No edema) - Lab 01/11/21 06:45 01/11/21 06:45 Most recent lab results Calcium 7.0 mg/dL (8.4-10.2) L 01/11/21 06:45 Medications & Allergies - Medications Allergies/Adverse Reactions: Allergies Sulfa (Sulfonamide Antibiotics) Allergy (Verified 01/02/21 00:42) Unknown Home Medications: Home Medications Medication Instructions Recorded Confirmed Last Taken Type Aspirin [Aspirin BABY CHEW TAB] 81 mg PO QDAY 01/02/21 01/02/21 Unknown History carvediloL [Coreg] 12.5 mg PO BID 01/02/21 01/02/21 Unknown History donepeziL [Aricept] 10 mg PO QHS 01/02/21 01/02/21 Unknown History hydrALAZINE [Apresoline TAB] 100 mg PO Q8HR 01/02/21 01/02/21 Unknown History Active Medications: Generic Name Dose Route Start Last Admin Trade Name Freq PRN Reason Stop Dose Admin Acetaminophen 650 mg 01/02/21 01:40 Acetaminophen 325 Mg Tab PO Q4H PRN Pain, Mild (1-3) Atorvastatin Calcium 40 mg 01/02/21 22:00 01/10/21 21:22 Atorvastatin 40 Mg Tab PO 40 mg QHS BELTRAN Administration Bisacodyl 10 mg 01/02/21 01:40 Bisacodyl 10 Mg Rect Supp SD QDAY PRN Constipation Dexamethasone 6 mg 01/03/21 10:00 01/10/21 10:04 Dexamethasone 4 Mg/Ml Vial IV 01/12/21 10:01 6 mg Q24HR BELTRAN Administration Metoclopramide HCl 5 mg 01/02/21 01:40 Metoclopramide 10 Mg Tab PO Q6H PRN Nausea And Vomiting Morphine Sulfate 2 mg 01/02/21 01:40 01/07/21 22:05 Morphine 2 Mg/1 Ml Inj IV 2 mg Q4H PRN Administration Pain, Moderate (4-6) Morphine Sulfate 4 mg 01/02/21 01:40 01/04/21 14:56 Morphine 4 Mg/1 Ml Inj IV 4 mg Q4H PRN Administration Pain , Severe (7-10) Nifedipine 60 mg 01/02/21 13:00 01/10/21 21:22 Nifedipine Xl 60 Mg Tab PO 60 mg BID BELTRAN Administration Ondansetron HCl 4 mg 01/02/21 01:40 Ondansetron 4 Mg/2 Ml Inj IV Q8H PRN Nausea And Vomiting Pantoprazole Sodium 40 mg 01/08/21 09:00 01/11/21 07:53 Pantoprazole 40 Mg Tab PO 40 mg QDAC BELTRAN Administration Promethazine HCl 25 mg 01/02/21 01:40 Promethazine 25 Mg Rect Supp SD Q6H PRN Nausea And Vomiting Sodium Chloride 10 ml 01/02/21 10:00 01/10/21 21:23 Sodium Chloride 0.9% 10 Ml Flush Syringe IV 10 ml BID BELTRAN Administration Sodium Chloride 10 ml 01/02/21 01:40 Sodium Chloride 0.9% 10 Ml Flush Syringe IV PRN PRN LINE FLUSH
[2021-01-11] MEDS: NIFEdipine XL 60 MG TAB PO SCH (09:58)
[2021-01-11] MEDS: dexAMETHasone 4 MG/ML VIAL IV SCH (09:58)
[2021-01-11] MEDS ORDERED: D5W/0.45% NACL 1,000 ML IV SCH (10:00)
--- NOTE | 2021-01-11 12:50 | Discharge Summary ---
Providers - Providers Date of Admission: 01/02/21 01:40 Date of discharge: 01/11/21 Attending physician: MAVIS SANTANA 01/02/21 Consult to Physician [CONS] Routine Comment: Consulting Provider: SAMUEL CUENCA Physician Instructions: Reason For Exam: FAVIOLA 01/02/21 01:40 Consult to Physician [CONS] Routine Comment: Consulting Provider: SUSHIL GARLAND Physician Instructions: Reason For Exam: ALTERED MENTAL STATUS, R/O CVA 01/02/21 01:42 Consult to Dietitian/Nutrition [CONS] Routine Physician Instructions: Reason For Exam: Reason for Consult: Nutrition Recommendations Reason for Consult: Diet education Occupational Therapy Evaluate and Treat [CONS] Routine Comment: Reason For Exam: Neuro deficits Physical Therapy Evaluation and Treat [CONS] Routine Comment: Reason For Exam: Neuro deficits 01/02/21 01:46 Speech Therapy Evaluation and Treat [CONS] Routine Reason For Exam: swallow eval 01/02/21 04:16 Consult to Physician [CONS] Routine Comment: Consulting Provider: CRISTOBAL PRATT Physician Instructions: Reason For Exam: Pneumonia, rule out COVID-19 01/04/21 08:12 Consult to Physician [CONS] Routine Comment: Consulting Provider: NANCY GALVAN Physician Instructions: Reason For Exam: CVA 01/05/21 17:30 Consult to Physician [CONS] Urgent Comment: Consulting Provider: VARGAS BROWNE Physician Instructions: Reason For Exam: subpectoral hematoma right chest 01/06/21 19:03 PICC Line Placement [Consult to PICC Line RN] [CONS] Stat Reason For Exam: difficult stick Type Line:: PICC 01/06/21 19:05 Midline [Consult to PICC Line RN] [CONS] Stat Reason For Exam: difficult stick need RPBC Type Line:: PICC 01/07/21 11:11 Midline [Consult to PICC Line RN] [CONS] Urgent Reason For Exam: IV access Type Line:: Midline Primary care physician: DRAFTER [employer]CTION[facility] SURVEY Hospitalization Condition: Stable Hospital course: Patient is 55 yo -[place] female with known history of hypertension and history of stroke in the past was brought into the emergency room by EMS for altered mental status. Per EMS patient has been altered for almost 4 days and family decided to send patient to the emergency room for further evaluation. Most of the history was gotten from the ER staff as family is not available and patient unable to give any any good history. According to records patient was tachycardic during transportation to the hospital she was also said to have had a low-grade fever. Upon arrival in the ER she was said to be confused, tachycardic and slightly hypoxic. Work-up in the emergency room today significant findings were that of a D-dimer of 1378, elevated troponin of 0.43, BUN and creatinine were 37 and 2.3 respectively. Urinalysis was significant for UTI. Chest x-ray reveals ill-defined airspace disease within the left midlung this could be community health representative of pneumonia. CT scan of the head reveals several findings including: Suspicious hypodensity within the left basal ganglia which could be secondary to acute infarct. MRI recommended for further evaluation. There are several small lacunar infarcts identified within the right basal gang theresa. patient was admitted, Covid-19 serology came back positive. During stay she developed spontaneous subpectoral hematoma right chest, managed with PRBC transfusion and conservative management. MRI Brain confirmed acute ischemic stroke however Aspirin was discontinued because of large hematoma. She had a prolonged hospital course as detailed below, and she improved slowly and eventually discharged to SNF on 01/11/21. Acute ischemic stroke left Sepsis. Present on admission. Patient meets criteria given the tachycardia, tachypnea and diagnosis of UTI/pneumonia. Bilateral pneumonia. COVID-19 pneumonia. Acute kidney injury. Etiology secondary to ATN/sepsis. UTI. Toxic metabolic encephalopathy. Right subpectoral hematoma 01/02/2021. Altered mentation is secondary to toxic metabolic encephalopathy from sepsis/pneumonia/UTI +/-CVA. CT scan of the head reveals several findings including: Suspicious hypodensity within the left basal ganglia which could be secondary to acute infarct. MRI recommended for further evaluation. There are several small lacunar infarcts identified within the right basal ganglia. Neurology consultation when available. Patient will be continued on IV antibiotics. Patient currently undergoing VQ scan for elevated D-dimer to rule out PE. Follow-up Covid PCR. Total visit time equals 35 minutes with greater than 50% spent on coordination of care and counseling. 01/03/2021. Await MRI brain. Echocardiogram reveals left ventricular size normal with normal systolic function. EF 50 to 60%. Mild diastolic dysfunction. No PFO. Creatinine has improved to 1.5. Nephrology following. Covid PCR positive on 01/02. Continue IV antibiotics. Follow-up blood cultures. Check procalcitonin. Continue dexamethasone. VQ scan is negative for PE. Therefore, we will discontinue IV heparin drip. 01/04/2021. Continue dexamethasone 6 mg IV for 10 days. ID initiated remdesivir yesterday. Continue to trend inflammatory markers of ferritin, D-dimer, CRP and LDH. Initial markers elevated with D-dimer 2078. CRP 2.5. Ferritin 320. Continue DVT prophylactic anticoagulation. Continue ceftriaxone and azithromycin given the elevated procalcitonin. Continue to monitor creatinine, strict i/os and daily lytes, avoid nephrotoxins. Await MRI brain to further assess abnormal CT scan and CVA. Neurology consultation pending 01/05/21 patient with Covid-19 pneumonia. Hgb 5.5 today, was 6.6 yesterday and 13.6 about 3 days ago. No obvious bleeding. Obtain stat PT,INR,Iron. stool occult blood. Transfuse 3 Units PRBC. NPO. Protonix drip. I consulted GI and discussed with Dr. Grijalva. Obtain CT Abd/pelvis to r/o hematoma. I also discussed with Dr. Galvan and he agrees to hold Aspirin because of sudden large Hgb drop. Patient cannot give history For MRI Brain to r/o stroke 01/06/21 Patient with Covid-19 pneumonia with acute respiratory failure. he had Hgb 5,5 yesterday from 13.6 just 3 days earlier. Workup revealed subpectoral hematoma right chest. She was transfused 3 Units PRBC, now Hgb 12. Surgeon following. No known trauma. Patient cannot give history, has aphasia from poss stroke. CT Head sugg several lacunar infarcts both basal ganglia. MRI Brain to r/o stroke pending. Continue to monitor H/H FAVIOLA followed by Nephrology 01/07/21 Hypernatremia improved from 151 to 150 on D5NS. Will change IV fluids to D5 half-normal saline at the same rate. On 7 L of oxygen for acute hypoxic respiratory failure due to COVID-19 pneumonia. Will wean off oxygen as tolerated Hb trending up. Continue to hold ASA. Surgeon, nephrology and ID input appreciated. Still on remdesivir and dexamethasone. 01/08/2021. Hyponatremia has resolved. Will DC IV fluid. No significant change in creatinine for the last few days and nephrology is on board. Leukocytosis has improved. Completed remdesivir on 01/07/2021. Still on dexamethasone started on 01/03/2021. On 7 L oxygen with O2 sat of 91% and will wean off as tolerated. Surgeon has recommended to hold aspirin indefinitely. 01/09/2021 Patient with Covid-19, stroke,FVAIOLA, hematoma right chest . Improving. H/H stable. Cr 1.8 today. Swelling right chest wall much improved. 01/10/2021 Patient with Covid-19 , Stroke, FAVIOLA, hematoma right chest. Hgb 13.8. Less swelling right chest. On Oxygen at 1 l/min Disposition: [facility] Final Discharge Diagnosis (Prints w/discharge instructions): 1.Covid-19. 2.Acute resp failure. 3.hematoma right chest. 4.Acute ischemic stroke Time spent for discharge: 52 mins - Discharge Diagnoses (1) COVID-19 Status: Acute (2) FAVIOLA (acute kidney injury) Status: Acute (3) CVA (cerebral vascular accident) Status: Acute Qualifiers: CVA mechanism: unspecified Qualified Code(s): I63.9 - Cerebral infarction, unspecified (4) Acute respiratory failure Status: Acute (5) Hematoma Status: Acute Core Measure Documentation - Palliative Care Palliative Care/ Comfort Measures: Not Applicable - Core Measures Any of the following diagnoses?: none Exam - Constitutional Vitals: Temp Pulse Resp BP Pulse Ox 98 F 89 18 124/79 96 01/11/21 06:00 01/11/21 06:00 01/11/21 06:00 01/11/21 06:00 01/11/21 09:20 Plan Activity: advance as tolerated Diet: low fat, low salt, renal, other (Pureed) Special Instructions: home oxygen via ([place] at 1 l/min) Plan of Treatment: 1.Follow up with Physician at [facility] in 2-3 days. 2.Repeat BMP on 01/14/21 3.Follow up with Dr. Nguyễn, Nephrology in 1-2 weeks 4.Repeat CBC in 1 week Follow up with: PRIMARY CAREMD [Primary Care Provider] - 3-5 Days Prescriptions: Dexamethasone [Decadron] 6 mg PO DAILY 3 Days tablet AtorvaSTATin [Lipitor] 40 mg PO QHS #30 tablet NIFEdipine XL [Procardia Xl] 60 mg PO BID #60 tablet Pantoprazole [Protonix TAB] 40 mg PO QDAC #30 tablet
--- NOTE | 2021-01-11 12:57 | Event Note ---
Date: 01/11/[address] Valdez, Surgeon. He does not recommend resuming Aspirin because of risk of bleeding.
[2021-01-11 18:47] VITALS: BP 121/69
== END 2021-01-11 18:53 | DRG 871 ==
LOC: ED 22:59 → 4A 01-02 01:40 → 3A 01-03 20:12
PROVIDERS: ADMIT Internal Medicine Geriatric Medicine; ATTEND Internal Medicine
PROC: XW033E5 Introduction of Remdesivir Anti-infective into Peripheral Vein, Percutaneous Approach, New Technology Group 5 (ICD-10-PCS; principal; 2021-01-03)
PROC: 30233N1 Transfusion of Nonautologous Red Blood Cells into Peripheral Vein, Percutaneous Approach (ICD-10-PCS; 2021-01-05)
PROC: 05HA33Z Insertion of Infusion Device into Left Brachial Vein, Percutaneous Approach (ICD-10-PCS; 2021-01-07)
DX: A41.9 Sepsis, unspecified organism (principal); I63.9 Cerebral infarction, unspecified; U07.1 COVID-19; J12.82 Pneumonia due to coronavirus disease 2019; N17.0 Acute kidney failure with tubular necrosis; G92.8 Other toxic encephalopathy; J96.01 Acute respiratory failure with hypoxia; N39.0 Urinary tract infection, site not specified; E87.0 Hyperosmolality and hypernatremia; Z88.2 Allergy status to sulfonamides; Z79.82 Long term (current) use of aspirin; R77.8 Other specified abnormalities of plasma proteins; D64.9 Anemia, unspecified; N64.89 Other specified disorders of breast
CPT/HCPCS: 36415; 70450; 70544; 70547; 70551; 71045; 74176; 76770; 78580; 80048; 80053; 80061; 81001; 82140; 82728; 82947; 82962; 83550; 83615; 83880; 84145; 84484; 85007; 85014; 85018; 85025; 85027; 85049; 85379; 85520; 85610; 85730; 86140; 86850; 86900; 86901; 86920; 87040; 87086; 93005; 93306; 93880; 93970; 94760; G0378; A9540; C9113; J0360; J0456; J0696; J1100; J1644; J2270; J7030; J7040; J7042; J7050; J7070; P9016; U0003